=== PATIENT | male | born 1965 | race Caucasian/White ===

== ENCOUNTER 2018-03-11 09:19 | Day surgery (SDC) | payer OTHER, SELFPAY ==
[2018-03-11 09:33] VITALS: BP 123/73; PULSE 83; RESP 16; TEMP 36.4; O2SAT 96
[2018-03-11] MEDS: Lactated Ringers 1,000 ML 30 ML IV (09:58)
--- NOTE | 2018-03-11 11:10 | COLE_ITS ---
Date of service: 03/11/18 Time of Service: 11:09 Colonoscopy Report Date of procedure: 03/11/18 Pre-op diagnosis general: Colorectal cancer screening Post-op diagnosis procedure note: other (Normal colon to the cecum) Procedure: Colonoscopy to the cecum Surgeon: Tavo Mendez Anesthesia proc note operative: MAC (Santa Chau CRNA; ASA 2 Mallampati class II) Estimated blood loss (mL): 0 Pathology: none sent Complications: None Disposition: same day Indications: 52-year-old male presenting for initial colorectal cancer screening by colonoscopy. He is been asymptomatic, and has no family history of colorectal cancer. Colonoscopy procedure is been reviewed with him all his questions answered to his satisfaction consents been obtained to proceed with colonoscopy. Prep: Miralax/Dulcolax (Prep quality excellent) Findings: In examining the colon from cecum to anus, no abnormalities were noted. Procedure Description: The patient was seen in the day surgery waiting area. His identification was confirmed, and procedure check. He was then brought to the procedure room. Monitoring for telemetry, blood pressure, oxygen saturation , and end tidal CO2 monitoring were applied. An appropriate time out was performed to confirm, identification, allergies, medication, procedure, was performed. Sedation was titrated for affect by the PANEL INSTRUMENT REPAIRER; Once adequate sedation was achieved, I performed a inspection of the external perineum, and a digitial rectal examination. No significant external abnormalities were noted. On digital rectal examination, there was no blood, no masses, good rectal tone, and a normal prostate. I advanced the colonoscope from the anus to the cecum under direct visualization. The cecum was identified by the ileal-cecal valve, and the appendiceal orifice. The scope was then withdrawn in circumferential manner from the cecum to the rectum. No abnormalites were noted in the colon. The scope was then withdrawn into the rectum, and retroflexed. No abnormalities were noted of the rectum or anorectal junction. The scope was then withdrawn, terminating the procedure. There were no complications during the procedure, and the patient tolerated the procedure well. He was returned to the day surgery recovery area in good condition. Plan: Will continue with routine screening for colorectal cancer according to current consensus guidelines, which is currently 10 years.
--- NOTE | 2018-03-11 11:48 | W.PM.DSUDISC ---
Discharge Plan Disposition Patient Disposition: HOME Condition: Good Discharge Details Reason For Visit: SCREENING Attending Provider: Tavo Mendez Primary Care Provider: Angel Luis Batista Home Meds and New Rx's Prescriptions: Continue clonazepam [Klonopin] 0.5 MG tablet 0.5 mg PO BID PRNRF: 0 lisinopril 10 MG tablet 10 mg PO DAILY RF: 0 gabapentin 300 MG capsule 600 mg PO BID RF: 0 albuterol sulfate [ProAir HFA] 8.5 GM HFA aerosol inhaler 2 puff Inhalation qid prn RF: 0 fluticasone [Flovent HFA] 12 GM HFA aerosol inhaler 2 puff Inhalation BID Qty: 1 RF: 3 buspirone 15 MG tablet 7.5 mg PO DAILY RF: 0 duloxetine [Cymbalta] 60 MG capsule,delayed release(DR/EC) 60 mg PO DAILY RF: 0 Diclofenac Sodium [Diclo Gel] 1 EACH kit 1 ea Topical BID PRNRF: 0 desoximetasone 60 GM ointment 60 gm Topical PRN PRNRF: 0 Discontinued bisacodyl [Dulcolax (bisacodyl)] 5 mg tablet,delayed release (DR/EC) 10 mg PO BID Qty: 4 RF: 0 polyethylene glycol 3350 [Miralax] 17 gram/dose powder 255 gm PO ONCE Qty: 255 RF: 0 Discharge Instructions Instructions: Colonoscopy (DC) Stand Alone Forms: Colonoscopy Post Instructions, Becky Pickering (DSU) Activity:: Activity as Tolerated Diet:: As Tolerated Discharge Orders Discharge Orders: Discharge Order (Routine); Ordered 03/11/18 Ordered By: Tavo Mendez DS: Diagnosis Discharge Diagnosis (1) Encounter for colorectal cancer screening: Start date: 03/11/18 Start time: 11:49 Status: Acute Asessment and Plan: Colonoscopy performed. Colonoscopy Report Date of procedure: 03/11/18 Pre-op diagnosis general: Colorectal cancer screening Post-op diagnosis procedure note: other (Normal colon to the cecum) Procedure: Colonoscopy to the cecum Surgeon: Tavo Mendez Anesthesia proc note operative: MAC (Santa Chau CRNA; ASA 2 Mallampati class II) Estimated blood loss (mL): 0 Pathology: none sent Complications: None Disposition: same day Indications: 52-year-old male presenting for initial colorectal cancer screening by colonoscopy. He is been asymptomatic, and has no family history of colorectal cancer. Colonoscopy procedure is been reviewed with him all his questions answered to his satisfaction consents been obtained to proceed with colonoscopy. Prep: Miralax/Dulcolax (Prep quality excellent) Findings: In examining the colon from cecum to anus, no abnormalities were noted. Procedure Description: The patient was seen in the day surgery waiting area. His identification was confirmed, and procedure check. He was then brought to the procedure room. Monitoring for telemetry, blood pressure, oxygen saturation, and end tidal CO2 monitoring were applied. An appropriate time out was performed to confirm, identification, allergies, medication, procedure, was performed. Sedation was titrated for affect by the PRODUCT SCIENTIST; Once adequate sedation was achieved, I performed a inspection of the external perineum, and a digitial rectal examination. No significant external abnormalities were noted. On digital rectal examination, there was no blood, no masses, good rectal tone, and a normal prostate. I advanced the colonoscope from the anus to the cecum under direct visualization. The cecum was identified by the ileal-cecal valve, and the appendiceal orifice. The scope was then withdrawn in circumferential manner from the cecum to the rectum. No abnormalites were noted in the colon. The scope was then withdrawn into the rectum, and retroflexed. No abnormalities were noted of the rectum or anorectal junction. The scope was then withdrawn, terminating the procedure. There were no complications during the procedure, and the patient tolerated the procedure well. He was returned to the day surgery recovery area in good condition. Plan: Will continue with routine screening for colorectal cancer according to current consensus guidelines, which is currently 10 years.
[2018-03-11 12:19] VITALS: BP 118/80; PULSE 76; RESP 18; TEMP 36.4; O2SAT 97
== END 2018-03-11 12:35 | disposition home or self-care (01) ==
PROVIDERS: PCP Internal Medicine; Visit Provider Surgery
PROC: 0DJD8ZZ Inspection of Lower Intestinal Tract, Via Natural or Artificial Opening Endoscopic (ICD-10-PCS; CPT 45378; principal; 2018-03-11 10:30)
DX: Z12.11 Encounter for screening for malignant neoplasm of colon (principal); I10 Essential (primary) hypertension; G47.33 Obstructive sleep apnea (adult) (pediatric); F17.290 Nicotine dependence, other tobacco product, uncomplicated
CPT/HCPCS: 45378

== ENCOUNTER 2018-08-03 07:50 | Emergency (ER) | payer OTHER, SELFPAY ==
[2018-08-03 07:57] VITALS: BP 138/107; PULSE 81; RESP 16; TEMP 36.3; O2SAT 97
--- NOTE | 2018-08-03 08:08 | W.ED.GENAD ---
Discharge Plan Disposition Patient Disposition: HOME Condition: Good Discharge Details Chief Complaint: Abd Prob Clinical Impression: Kidney stone Primary Care Provider: [facility] ED Provider: Isaiah Nettles Home Meds and New Rx's Prescriptions: New acetaminophen [Mapap Extra Strength] 500 MG tablet 1,000 mg PO Q6H 5 Days Qty: 60 RF: 0 lidocaine [Lidoderm] 1 PATCH patch 1 patch Topical Q24H Qty: 4 RF: 0 ibuprofen [Motrin IB] 200 MG tablet 600 mg PO Q6H 5 Days Qty: 60 RF: 0 Continued clonazepam [Klonopin] 0.5 MG tablet 0.5 mg PO BID PRNRF: 0 lisinopril 10 MG tablet 10 mg PO DAILY RF: 0 gabapentin 300 MG capsule 600 mg PO BID RF: 0 albuterol sulfate [ProAir HFA] 8.5 GM HFA aerosol inhaler 2 puff Inhalation qid prn RF: 0 Flovent HFA 12 GM HFA aerosol inhaler 2 puff Inhalation BID Qty: 1 RF: 3 buspirone 15 MG tablet 7.5 mg PO DAILY RF: 0 duloxetine [Cymbalta] 60 MG capsule,delayed release(DR/EC) 60 mg PO DAILY RF: 0 Diclofenac Sodium [Diclo Gel] 1 EACH kit 1 ea Topical BID PRNRF: 0 desoximetasone 60 GM ointment 60 gm Topical PRN PRNRF: 0 Discharge Instructions Instructions: Kidney Stones (ED) Additional Instructions: Please take the Tylenol and Motrin as directed. If you notice any worsening of your symptoms, or any new symptoms such as vomiting, diarrhea, fever, chills, shortness of breath, chest pain, numbness, weakness, or fainting , please return immediately to the emergency department for reevaluation. Please follow up with your primary care provider as soon as possible for reassessment and reevaluation. As always, it was a pleasure participating in your medical care today. Referrals: Mari Hill [Primary Care Provider] - Medical Decision Making This is a pleasant 53-year-old male who presents with left-sided flank and left lower abdominal pain since 1 AM, has gotten slightly better since its initial onset at 1 AM, worse with position. Improved with ibuprofen and Pepto-Bismol. He has no history of kidney stones but does have a history of diverticulitis. Physical exam demonstrates reproducible left lower quadrant abdominal pain left CVA tenderness. Genital exam demonstrates signs and symptoms and consistent with testicular torsion. Differential includes diverticulitis, urolithiasis, and less likely appendicitis. We will get a urinalysis to initially direct potential treatment, however I do think with the patient's generalized and reproducible abdominal pain that a CT scan is indicated to rule out severe diverticulitis or abscess. Will treat with Tylenol and a Lidoderm patch to start, then use additional pain medications as needed. 9:[address] scan has returned and per Dr. Brumfield radiologist there is evidence of a single kidney stone the distal ureter near the ureterovesicular junction, but no other acute process. With a urinalysis consistent with urinary tract infection, and laboratory workup otherwise benign aside for a slight increase in his creatinine, his pain well-controlled I feel he can be safely discharged home with close follow-up. He is tolerating p.o. well. We have given the first dose of Flomax here. Since the stone is close to expulsion, will recommend straining, continued fluids, and NSAID use. I have extensively reviewed the treatment plan and discharge instructions with the patient and their family. I have addressed all patient concerns at this time. The patient and family was made aware of what symptoms to monitor for that would warrant a return to the emergency department. Discussed the plan with the patient and family, they demonstrate verbal understanding and agreement with our assessment and plan at this time. HPI General Date/Time Provider Initiated Documentation: 08/03/18 08:07. HPI Narrative: This is a very pleasant 53-year-old male with a past medical history of asthma and anxiety who presents today for evaluation of left-sided flank pain that began at 1 AM. Started in the left flank and radiated down to the left lower abdominal quadrant and left groin, the pain got noticeably better this morning at around 7 AM, after taking ibuprofen for the second time and Pepto-Bismol. Symptoms seem to be worsened with position when he lies back, or moves around. Improved with ibuprofen and Pepto-Bismol. Last ibuprofen dose was at 7 AM. He denies any nausea, vomiting or diarrhea. He denies any dark or tarry stools, hematochezia melena or acholic stool. He denies any dysuria, hematuria or increased urinary frequency. He denies any history of kidney stones. He does have a history of diverticulitis, and states that this feels similar but worse. He denies any previous abdominal surgeries. No other aggravating or modifying factors. He denies any chest pain, shortness of breath, cough, fever, numbness tingling or weakness. He denies any pertinent family history or IV or illicit drug use. Related Data Home Medications Medication Instructions Recorded Confirmed Diclofenac Sodium [Diclo Gel] 1 ea TOPICAL BID PRN kit 01/13/18 03/11/18 Flovent HFA 2 puff INHALATION BID #1 inhaler 01/13/18 08/03/18 albuterol sulfate [ProAir HFA] 2 puff INHALATION qid prn inhaler 01/13/18 08/03/18 buspirone 7.5 mg PO DAILY tab-cap 01/13/18 08/03/18 clonazepam [Klonopin] 0.5 mg PO BID PRN tab-cap 01/13/18 08/03/18 desoximetasone 60 gm TOPICAL PRN PRN script 01/13/18 08/03/18 duloxetine [Cymbalta] 60 mg PO DAILY tab-cap 01/13/18 08/03/18 gabapentin 600 mg PO BID tab-cap 01/13/18 08/03/18 lisinopril 10 mg PO DAILY tab-cap 01/13/18 08/03/18 acetaminophen [Mapap Extra 1,000 mg PO Q6H 5 Days #60 tab 08/03/18 Strength] ibuprofen [Motrin Ib] 600 mg PO Q6H 5 Days #60 tab 08/03/18 lidocaine [Lidoderm] 1 patch TOPICAL Q24H #4 patch 08/03/18 Previous Rx's Medication Instructions Recorded acetaminophen [Mapap Extra 1,000 mg PO Q6H 5 Days #60 tab 08/03/18 Strength] ibuprofen [Motrin Ib] 600 mg PO Q6H 5 Days #60 tab 08/03/18 lidocaine [Lidoderm] 1 patch TOPICAL Q24H #4 patch 08/03/18 Allergies Allergy/AdvReac Type Severity Reaction Status Date / Time No Known Allergies Allergy Verified 08/03/18 08:00 General Stated Complaint: Abd Prob ASHLEY: 3 Review of Systems Review of Systems All systems reviewed & are unremarkable except as noted in HPI and below PFSH Medical History Alopecia totalis Anxiety Asthma, mild intermittent Asymptomatic microscopic hematuria Depression Diarrhea Diverticulitis Environmental allergies Headache Hypertension Lumbar back pain Shingles Sleep apnea Smoker Surgical History H/O colonoscopy (Resolved 03/11/18) Social History Smoking/Tobacco Use Status: Current every day Tobacco Type: cigars Per week: 10 Tobacco: How many years used: 10 Alcohol Intake: current Alcohol Intake frequency: a few times a week Alcohol type: beer Drug use: Never Substance use type: does not use Exam Narrative Exam Narrative: 1.Const: Well-nourished, Well-developed, appearing stated age 2.Eyes: PERRL, no conjunctival injection, and symmetrical lids. 3.ENT: Atraumatic external nose and ears. Moist MM. Neck: Symmetric, trachea midline, No thyromegaly. 4.CVS: +S1/S2, No murmurs or gallops. Peripheral pulses 2+ and equal in all extremities. Brisk capillary refill in all extremities. 5.RESP: Unlabored respiratory effort. Clear to auscultation bilaterally. No wheezes rales or rhonchi 6.GI: Soft, Nondistended, No hepatosplenomegaly. No guarding or rebound. Mild right lower quadrant abdominal pain, mild to moderate left lower quadrant pain. Reproducible left CVA tenderness. Negative obturator and psoas sign. Negative Selby sign. Testicular exam demonstrated normal male genitalia, nontender testicles bilaterally, normal cremasteric reflex bilaterally. 7.MSK: Normocephalic/Atraumatic, Extremities w/o deformity or ttp No cyanosis or clubbing, Normal movement of all extremities 8.Skin: Warm, Dry. No rashes or lesions. 9.Neuro: health service coordinator II-XII grossly intact. Sensation grossly intact, no focal neurologic deficits. 10.Psych: (AAO) x3. Appropriate mood and affect Course Vital Signs Temperature 36.3 C L 08/03/18 07:57 Pulse 81 08/03/18 07:57 Respiratory Rate 16 08/03/18 07:57 Blood Pressure 138/107 H 08/03/18 07:57 Pulse Oximetry 97 08/03/18 07:57 Temperature 36.3 C L 08/03/18 07:57 Temperature Source Skin 08/03/18 07:57 Pulse 81 08/03/18 07:57 Respiratory Rate 16 08/03/18 07:57 Respiratory Effort Non-Labored 08/03/18 07:57 Blood Pressure 138/107 H 08/03/18 07:57 Blood Pressure Position Sitting 08/03/18 07:57 Pulse Oximetry 97 08/03/18 07:57 Oxygen Delivery Method Room Air 08/03/18 07:57 Oxygen Flow Rate 0 08/03/18 07:57 Pain Level 4 08/03/18 07:57
[2018-08-03 08:09] LABS: Bilirubin Negative (Negative); Blood Moderate (Negative); Clarity Clear; Glucose Negative (Negative); Ketones Negative (Negative); Leukocyte Esterase Negative (Negative); Nitrite Negative (Negative); Specific Gravity 1.025 (1.005-1.025); Urobilinogen 0.2 EU/dL (Up TO 0.2)
--- NOTE | 2018-08-03 08:13 | DI.CT_ITS ---
SYMPTOM/DIAGNOSIS: LT FLANK PAIN, ? DIVERTICULITIS VS [place] RENAL COLIC CT: CT scan of the abdomen and pelvis was performed according to the renal colic protocol. Lack of IV contrast does limit evaluation of the abdominal and pelvic organs. The lung bases are clear. The unenhanced visualized portions of the liver, spleen, pancreas, gallbladder and adrenal glands are unremarkable. There is a 4 mm. stone at the left ureterovesicular junction causing mild hydronephrosis. No other renal stones are present. There are again cysts in the right kidney which appear stable compared to the examination from 09/23/17. The urinary bladder is intact. The reproductive organs are unremarkable. There is diverticulosis of the colon but no evidence of acute diverticulitis. There is a normal appendix. The remainder of the bowel is unremarkable. The abdominal aorta is of normal caliber with mild atherosclerosis. No significant abdominal or pelvic adenopathy, ascites or pneumoperitoneum is seen. 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 IMPRESSION: 4 mm. left UVJ calculus causing mild hydronephrosis. The findings were discussed with the ER on the date of the examination.
[2018-08-03 08:23] LABS: WBC 0-2 HPF (0-5)
[2018-08-03] MEDS: Acetaminophen 500 MG TAB 1000 MG PO (08:23)
[2018-08-03] MEDS: Lidocaine 5% Patch 1 PATCH TP (08:23)
[2018-08-03 08:24] LABS: Bacteria Few HPF (Negative); C & S Indicated? No; Casts Negative LPF (Negative); Crystals Negative HPF (Negative); Epithelial Cells Few HPF (Negative); Mucus Moderate (Negative)
[2018-08-03 08:27] LABS: Abs Immature Grans 0.03 k/cumm (0.0-0.09); Absolute Lymphocyte Count 0.93 k/cumm (1.2-3.4); Absolute Monocyte Count 0.92 k/cumm (0.11-0.7); Absolute Neutrophil Count 7.84 k/cumm (1.2-6.7); HCT 45.9 % (40.0-50.0); HGB 16.3 g/dL (13.5-17.5); Immature Grans % 0.3; Lymphocytes % 9.6; Mean Corp. HGB Concentration 35.5 g/dL (32.0-36.0); Mean Corpuscular Hemoglobin 32.8 pg (27.0-33.0); Mean Corpuscular Volume 92.4 fL (80-95); Mean Platelet Volume 9.1 fL (8.0-11.0); Monocytes % 9.5; Neutrophils % 80.6; Platelet Count 195 x1000/uL (130-400); RBC 4.97 m/cumm (4.50-6.00); RBC Distribution Width 13.1 % (11.8-14.1); White Blood Cell Count 9.72 k/cumm (4.4-10.8)
[2018-08-03 08:36] LABS: ALT 31 U/L (12-78); AST 23 U/L (15-37); Albumin 4.3 g/dL (3.4-5.0); Alkaline Phosphatase 75 U/L (46-116); Anion Gap 8.9 mmol/L (3-11); BUN 27 mg/dL (7-18); Bilirubin, Total 0.6 mg/dL (0.2-1.0); CO2 26.1 mmol/L (21.0-32.0); CREATININE 1.69 mg/dL (0.70-1.30); Calcium 9.5 mg/dL (8.5-10.1); Chloride 104 mmol/L (98-107); Glucose 114 mg/dL (70-100); Potassium 4.5 mmol/L (3.5-5.1); Sodium 139 mmol/L (136-145); Total Protein 7.7 g/dL (6.4-8.2)
[2018-08-03] MEDS: Tamsulosin 0.4 MG CAPCR PO (09:10)
[2018-08-03 09:19] VITALS: BP 142/96; PULSE 65; RESP 16; TEMP 36.3; O2SAT 100
== END 2018-08-03 09:22 | disposition home or self-care (01) ==
PROVIDERS: Emergency Provider Student in an Organized Health Care Education/Training Program; PCP Nurse Practitioner Family
DX: R10.32 Left lower quadrant pain (principal); N20.1 Calculus of ureter; I10 Essential (primary) hypertension
CPT/HCPCS: 36415; 80053; 99284; 74176; 81003; 81015; 85025; 99285

== ENCOUNTER 2018-09-05 16:40 | Outpatient (REF) | payer OTHER, SELFPAY ==
[2018-09-05 21:21] LABS: ALT 40 U/L (12-78); AST 24 U/L (15-37); Anion Gap 9.4 mmol/L (3-11); BUN 18 mg/dL (7-18); CO2 25.6 mmol/L (21.0-32.0); CREATININE 1.32 mg/dL (0.70-1.30); Calcium 9.1 mg/dL (8.5-10.1); Chloride 103 mmol/L (98-107); Cholesterol 210 mg/dL (50-200); Estimated GFR 57.18 (mL/min/1.73m2); Glucose 133 mg/dL (70-100); HDL Cholesterol 46 mg/dL (40-60); LDL CHOLESTEROL 131 mg/dL (<100); Potassium 3.7 mmol/L (3.5-5.1); Sodium 138 mmol/L (136-145); Triglyceride 256 mg/dL (30-150)
== END 2018-09-05 17:00 ==
LOC: NCHCN 16:40
PROVIDERS: PCP Nurse Practitioner Family; Visit Provider Nurse Practitioner Family
DX: I10 Essential (primary) hypertension (principal); F41.8 Other specified anxiety disorders; G47.39 Other sleep apnea; J45.20 Mild intermittent asthma, uncomplicated; F17.210 Nicotine dependence, cigarettes, uncomplicated; Z87.442 Personal history of urinary calculi
CPT/HCPCS: 80048; 80061; 83721; 84450; 84460

== ENCOUNTER 2019-02-20 16:47 | Outpatient (REF) | payer OTHER, SELFPAY ==
[2019-02-20 20:59] LABS: Hemoglobin A1C 5.5 % (4.5-6.2)
[2019-02-20 21:10] LABS: TSH (W/Ref FT4) 1.49 uIU/mL (0.36-3.74)
== END 2019-02-20 17:07 ==
LOC: NCHCN 16:47
PROVIDERS: PCP Nurse Practitioner Family; Visit Provider Nurse Practitioner Family
DX: R41.3 Other amnesia (principal); R73.01 Impaired fasting glucose; I10 Essential (primary) hypertension; R51 Headache; F41.8 Other specified anxiety disorders; Z87.891 Personal history of nicotine dependence
CPT/HCPCS: 83036; 84443

== ENCOUNTER 2019-03-02 00:19 | Outpatient (CLI) | payer OTHER, SELFPAY ==
--- NOTE | 2019-03-02 09:10 | DI.MRI_ITS ---
EXAM: MR BRAIN WO CLINICAL HISTORY: MEMORY LOSS, R41.3, HEADACHE, R51 TECHNIQUE: Multiplanar multisequence MRI of the brain was performed. COMPARISON: No exams were available for comparison FINDINGS: The ventricular system is normal in appearance. No signal abnormality identified in the brain. The orbital and temporal bone structures appears intact as does the pituitary. Diffusion weighted imaging shows no evidence of infarction. Susceptibility weighted imaging shows no evidence of intracranial hemorrhage. There is normal flow void in the [place] vasculature. IMPRESSION: Normal brain MRI
== END 2019-03-02 00:39 ==
PROVIDERS: PCP Nurse Practitioner Family; Visit Provider Nurse Practitioner Family
DX: R51 Headache (principal); R41.3 Other amnesia
CPT/HCPCS: 70551

== ENCOUNTER 2019-03-07 14:26 | Outpatient (REF) | payer OTHER, SELFPAY ==
[2019-03-09 11:48] LABS: Lyme Ab w Rflx to Lyme Confirm Negative
[2019-03-10 19:45] LABS: Anaplasma phagocytophilum Negative (Negative); B. miyamotoi PCR Negative (Negative); Babesia divergens/MO-1 Negative (Negative); Babesia duncani Negative (Negative); Babesia microti Negative (Negative); Ehrlichia chaffeensis Negative (Negative); Ehrlichia ewingii/canis Negative (Negative); Ehrlichia muris eauclairensis Negative (Negative)
== END 2019-03-07 14:46 ==
LOC: NCHCN 14:26
PROVIDERS: PCP Nurse Practitioner Family; Visit Provider Nurse Practitioner Family
DX: R41.3 Other amnesia (principal)
CPT/HCPCS: 87798; 86618

== ENCOUNTER 2020-02-15 07:01 | Emergency (ER) | payer OTHER, SELFPAY ==
[2020-02-15 07:05] VITALS: BP 143/99; PULSE 85; RESP 18; TEMP 36.4; O2SAT 98
--- NOTE | 2020-02-15 07:09 | ED.GENADUL_ITS ---
Discharge Plan Disposition Patient Disposition: HOME Condition: Good Discharge Details Clinical Impression: Neck pain on right side, Radicular pain of right upper extremity Primary Care Provider: Mari Hill ED Provider: Tanner Naik Meds and New Rx's Prescriptions: New cyclobenzaprine 10 mg tablet 10 mg PO TID PRN (Reason: muscle spasm) Qty: 10 RF: 0 hydrocodone-acetaminophen 5-300 mg tablet 1 tab PO Q8H PRNQty: 10 RF: 0 lidocaine 5 % adhesive patch,medicated 1 patch topical DAILY Qty: 15 RF: 0 Continued budesonide-formoterol [Symbicort] 80-4.5 mcg/actuation HFA aerosol inhaler 1 puff IH .QD RF: 0 clonazepam [Klonopin] 0.5 MG tablet 0.5 mg PO BID PRNRF: 0 lisinopril 10 MG tablet 10 mg PO DAILY RF: 0 albuterol sulfate [ProAir HFA] 8.5 GM HFA aerosol inhaler 2 puff Inhalation qid prn RF: 0 duloxetine [Cymbalta] 60 MG capsule,delayed release(DR/EC) 60 mg PO DAILY RF: 0 desoximetasone 60 GM ointment 60 gm Topical PRN PRNRF: 0 buspirone 15 mg tablet 15 mg PO BID RF: 0 loratadine [Claritin] 10 mg tablet 10 mg PO DAILY PRNRF: 0 propranolol 40 mg tablet 40 mg PO BID RF: 0 Discharge Instructions Instructions: Cervical Radiculopathy (ED), Opioid Safety (ED) Additional Instructions: Please take ibuprofen 600 mg 3 times a day alternating with acetaminophen 650 mg 3 times a day. This will equate to something every 4 hours. Use the cyclobenzaprine for muscle spasm. Use the hydrocodone/acetaminophen for breakthrough/severe pain. No driving, alcohol, machinery operation while using cyclobenzaprine or hydrocodone/acetaminophen. Applied lidocaine patches during the day and remove at night. Heat, gentle massage and stretching will likely help. Contact primary care today for follow-up. Return to ED for worsening pain, weakness in the arm, loss of sensation in the arm, other concerns. Referrals: Mari Hill [Primary Care Provider] - Medical Decision Making Patient presenting with right-sided neck pain and cervical radiculopathy with pain down the back of his right arm. He is neurologically intact. Pulses are intact. Seems to be related to muscle spasm although the radicular pain could imply disc problem. Will have patient continue ibuprofen alternating with acetaminophen. We will try Lidoderm patch. We will also try cyclobenzaprine for spasm. Also prescribed hydrocodone/acetaminophen if needed for breakthrough/severe pain over the weekend until he can see primary care. We discussed opiate use and he is given the state information sheet as well as discharge papers. He is asked to call primary care today to make follow-up appointment. Return to ED for worsening pain, loss of sensation, weakness, other concerns. HPI General Mode of arrival: ambulatory . Date/Time Provider Initiated Documentation: 02/15/20 07:08 . Limitations to Documentation: no limitations . Information obtained by: patient and RN notes reviewed . HPI Narrative: Patient presents to ED with right-sided neck pain and radiation of pain down his right arm. Patient reports that just about a week ago he was getting out of the shower and drying off. [place] a pull in his right upper back and neck. Since then he has had progressive pain. For the last 3 days he has had the pain radiating down the back of his arm to his hand with some tingling in his fingers. He has had no loss of sensation. He has had no weakness. He has significantly decreased range of motion due to pain and sits on the stretcher with his head turned towards the left. He has been using ibuprofen. He saw chiropractor yesterday. He has been unable to sleep for the last couple of nights because of pain. She presents here this morning for evaluation. Related Data Home Medications Medication Instructions Recorded Confirmed albuterol sulfate [ProAir HFA] 2 puff INHALATION qid prn inhaler 01/13/18 02/15/20 clonazepam [Klonopin] 0.5 mg PO BID PRN tab-cap 01/13/18 02/15/20 desoximetasone 60 gm TOPICAL PRN PRN script 01/13/18 02/15/20 duloxetine [Cymbalta] 60 mg PO DAILY tab-cap 01/13/18 02/15/20 lisinopril 10 mg PO DAILY tab-cap 01/13/18 02/15/20 buspirone 15 mg tablet 15 mg PO BID tab-cap 02/22/19 02/15/20 loratadine 10 mg tablet 10 mg PO DAILY PRN 02/22/19 02/15/20 propranolol 40 mg tablet 40 mg PO BID 02/22/19 02/15/20 budesonide-formoterol HFA 80 1 puff IH .QD gm 06/06/19 02/15/20 mcg-4.5 mcg/actuation aerosol inhaler cyclobenzaprine 10 mg PO TID PRN #10 tab 02/15/20 hydrocodone-acetaminophen 1 tab PO Q8H PRN #10 tab 02/15/20 lidocaine 1 patch TOPICAL DAILY #15 ea 02/15/20 Previous Rx's Medication Instructions Recorded cyclobenzaprine 10 mg PO TID PRN #10 tab 02/15/20 hydrocodone-acetaminophen 1 tab PO Q8H PRN #10 tab 02/15/20 lidocaine 1 patch TOPICAL DAILY #15 ea 02/15/20 Allergies Allergy/AdvReac Type Severity Reaction Status Date / Time No Known Allergies Allergy Verified 02/15/20 07:09 General Stated Complaint: GenMedical ASHLEY: 3 Review of Systems Narrative: As documented in HPI otherwise negative as below. Const: no fever, chills, weakness Resp: no cough, SOB, pleuritic pain CV: no CP, diaphoresis, edema, syncope GI: no abdominal pain, nausea, vomiting, diarrhea Neuro: no headache, focal weakness, confusion PFSH Medical History (Updated 02/15/20 @ 07:39 by Tanner Naik MD) Alopecia totalis Anxiety Asthma, mild intermittent Asymptomatic microscopic hematuria Depression Diarrhea Diverticulitis Environmental allergies Headache, chronic migraine without aura Hypertension Lumbar back pain Shingles Sleep apnea Surgical History H/O colonoscopy (03/11/18) Dr Mendez, negative, repeat in 10 years Family History Other Cancer Social History Smoking/Tobacco Use Status: Current every day Tobacco: How many years used: 10 Alcohol Intake: current Alcohol Intake frequency: a few times a week Alcohol type: beer Drug use: Never Substance use type: does not use Seatbelt use: always Do you feel safe at home: Yes Do you feel safe in your relationship?: Yes Exam Narrative Exam Narrative: Vitals: Afebrile. Elevated blood pressure but otherwise normal vitals and normal room air pulse ox. Const: WDWN male in NAD. HEENT: NC/AT. Normal facial exam. Neck: Trachea midline. Head held to the left and flex. Tenderness and tightness in the right trapezial muscle. No midline cervical tenderness. Lungs: Normal respiratory effort. Cor: RRR. Good radial pulses. Neuro: A+O x 3. Normal speech, mentation, gait. Cranial nerves II - XII grossly intact. No gross motor or sensory deficit. Normal sensation and normal strength in right upper extremity. Ext: Decreased range of motion at the right shoulder due to pain in the upper back and neck. Right upper extremity otherwise unremarkable and neurovascularly intact. Skin: Warm and dry without rash. Course Vital Signs Vital signs: Vital Signs Temperature 97.5 F L 02/15/20 07:05 Pulse 85 02/15/20 07:05 Respiratory Rate 18 02/15/20 07:05 Blood Pressure 143/99 H 02/15/20 07:05 Pulse Oximetry 98 02/15/20 07:05 Temperature 97.5 F L 02/15/20 07:05 Temperature Source Temporal Artery Scan 02/15/20 07:05 Pulse 85 02/15/20 07:05 Respiratory Rate 18 02/15/20 07:05 Blood Pressure 143/99 H 02/15/20 07:05 Blood Pressure Position Sitting 02/15/20 07:05 Pulse Oximetry 98 02/15/20 07:05 Oxygen Delivery Method Room Air 02/15/20 07:05 Oxygen Flow Rate 0 02/15/20 07:05 Pain Level 10 02/15/20 07:05
[2020-02-15 07:14] VITALS: RESP 18
[2020-02-15] MEDS: Lidocaine 5% Patch 1 PATCH TP (07:39)
[2020-02-15] MEDS: Cyclobenzaprine 10 MG TAB, 3 TABS/BTL PO (07:39)
== END 2020-02-15 15:00 | disposition home or self-care (01) ==
LOC: ER 07:43
PROVIDERS: Emergency Provider Emergency Medicine; PCP Nurse Practitioner Family
DX: M54.12 Radiculopathy, cervical region (principal); M79.601 Pain in right arm; R20.2 Paresthesia of skin; I10 Essential (primary) hypertension
CPT/HCPCS: 99283

== ENCOUNTER 2020-02-16 08:29 | Emergency (ER) | payer OTHER, SELFPAY ==
--- NOTE | 2020-02-16 08:30 | DI.CT_ITS ---
EXAM: CT THORACIC SPINE WO CLINICAL HISTORY: Neck pain with radiculopathy. TECHNIQUE: Imaging Protocol: Axial computed tomography images with coronal and sagittal reformatted images were created and reviewed. CONTRAST MATERIAL: Noncontrast COMPARISON: No exams were available for comparison FINDINGS: Bones: No fractures or dislocations are seen. The alignment of the spine is normal including the cerv icothoracic junction. Soft tissues: The soft tissues of the chest are unremarkable. No large disk herniations are identifie d. IMPRESSION: Normal CT of the thoracic spine. RADIATION DOSE DELIVERED: 881.68mGy.cm Total DLP DATA REPOSITORY: All CT scans at this facility are submitted to the National Radiology Data Registry (NRDR) Dose Index Registry (DIR) with the [employer] (ACR). RADIATION OPTIMIZATION: All CT scans at this facility use at least one of these dose optimization te chniques: automated exposure control; mA and/or kV adjustment per patient size (includes targeted exa ms where dose is matched to clinical indication); or iterative reconstruction.
[2020-02-16 08:34] VITALS: BP 145/116; PULSE 80; RESP 16; TEMP 36.8; O2SAT 99
--- NOTE | 2020-02-16 08:44 | W.ED.GENAD ---
Discharge Plan Disposition Patient Disposition: HOME Condition: Stable Discharge Details Clinical Impression: C6 radiculopathy Primary Care Provider: Mari Hill ED Provider: Alison Torres Home Meds and New Rx's Prescriptions: New diazepam [Valium] 2 mg tablet 2 mg PO BID PRN (Reason: muscle spasm) Qty: 4 RF: 0 Continued budesonide-formoterol [Symbicort] 80-4.5 mcg/actuation HFA aerosol inhaler 1 puff IH .QD RF: 0 clonazepam [Klonopin] 0.5 MG tablet 0.5 mg PO BID PRNRF: 0 lisinopril 10 MG tablet 10 mg PO DAILY RF: 0 albuterol sulfate [ProAir HFA] 8.5 GM HFA aerosol inhaler 2 puff Inhalation qid prn RF: 0 duloxetine [Cymbalta] 60 MG capsule,delayed release(DR/EC) 60 mg PO DAILY RF: 0 desoximetasone 60 GM ointment 60 gm Topical PRN PRNRF: 0 buspirone 15 mg tablet 15 mg PO BID RF: 0 loratadine [Claritin] 10 mg tablet 10 mg PO DAILY PRNRF: 0 propranolol 40 mg tablet 40 mg PO BID RF: 0 cyclobenzaprine 10 mg tablet 10 mg PO TID PRN (Reason: muscle spasm) Qty: 10 RF: 0 hydrocodone-acetaminophen 5-300 mg tablet 1 tab PO Q8H PRNQty: 10 RF: 0 lidocaine 5 % adhesive patch,medicated 1 patch topical DAILY Qty: 15 RF: 0 Discharge Instructions Instructions: Cervical Radiculopathy (ED) Additional Instructions: Follow up with primary care provider in 3-5 days. Return to ED sooner if any worsening or concerns. Increase oral fluids. Please take Tylenol or Ibuprofen with food every 4-6 hours as needed for pain and swelling. Take medications as prescribed. Alternate ice and heat. The CT today shows some disc height loss at C6 and C7 with some foraminal canal narrowing which could indicate a pinched nerve in your neck. This could be the cause for the symptoms you are having. Please follow-up with global mobility specialist regarding your symptoms within the next 3 to 5 days. We will put you on a follow-up list for care management to assist you with getting an appointment. Stand Alone Forms: Work Release Referrals: Mari Hill [Primary Care Provider] - Raoul Cortez MD [ [facility] STAFF PHYSICIAN] - Discharge Data Discharge Date/Time-TO BE ENTERED AT DEPARTURE: 02/16/20 11:09 Medical Decision Making 54-year-old male presents to the ER for the second day in a row with posterior neck pain. He reports sharp shooting pain which extends down his right arm into his first 3 fingers. He reports paresthesias to his thumb index and middle finger on his right hand. Unknown injury. He was given Vicodin, and Flexeril which she reports is not helping. Denies any other complaints at this time. EXAM: CT THORACIC SPINE WO CLINICAL HISTORY: Neck pain with radiculopathy. TECHNIQUE: Imaging Protocol: Axial computed tomography images with coronal and sagittal reformatted images were created and reviewed. CONTRAST MATERIAL: Noncontrast COMPARISON: No exams were available for comparison FINDINGS: Bones: No fractures or dislocations are seen. The alignment of the spine is normal including the cervicothoracic junction. Soft tissues: The soft tissues of the chest are unremarkable. No large disk herniations are identified. IMPRESSION: Normal CT of the thoracic spine. EXAM: CT CERVICAL SPINE WO CLINICAL HISTORY: Neck pain with radiculopathy. TECHNIQUE: Imaging Protocol: Axial computed tomography images with coronal and sagittal reformatted images were created and reviewed CONTRAST MATERIAL: Noncontrast COMPARISON: No exams were available for comparison FINDINGS: Bones: No fracture or dislocations are seen. The alignment of the cervical spine is normal including the cervicovertebral junction and cervicothoracic junction. C2-3: Normal. C3-4: Normal. C4-5: Normal. C5-6: Minimal disc osteophytes.. C6-7: Bwrm-pe-aiygfemt loss of disc height and small endplate osteophytes which are eccentric toward the left, causing iulw-oj-kvfhtmmf neural foraminal narrowing. There is mild right neural foraminal narrowing. C7-T1: Normal. There are mild facet degenerative changes. Soft Tissues: The soft tissues of the neck are unremarkable. No large disk herniations are identified. IMPRESSION: Cafa-ey-ilkhtith degenerative disc changes at C6-7 cause bilateral neural foraminal narrowing. No disc herniation is seen. Discussed results with patient who verbalized understanding. Recommended to follow-up with orthopedics as previously instructed. Was given Valium 2 mg 24 tablet as needed for muscle spasm. Patient verbalized understanding. He remained hemodynamically stable throughout stay and his pain was relieved prior to being discharged home. HPI General Mode of arrival: ambulatory. Date/Time Provider Initiated Documentation: 02/16/20 08:31. Limitations to Documentation: no limitations. Information obtained by: patient. HPI Narrative: 54-year-old male presents to the ER for the second day in a row with posterior neck pain. He reports sharp shooting pain which extends down his right arm into his first 3 fingers. He reports paresthesias to his thumb index and middle finger on his right hand. Unknown injury. He was given Vicodin, and Flexeril which she reports is not helping. Denies any other complaints at this time. Related Data Home Medications Medication Instructions Recorded Confirmed albuterol sulfate [ProAir HFA] 2 puff INHALATION qid prn inhaler 01/13/18 02/16/20 clonazepam [Klonopin] 0.5 mg PO BID PRN tab-cap 01/13/18 02/16/20 desoximetasone 60 gm TOPICAL PRN PRN script 01/13/18 02/16/20 duloxetine [Cymbalta] 60 mg PO DAILY tab-cap 01/13/18 02/16/20 lisinopril 10 mg PO DAILY tab-cap 01/13/18 02/16/20 buspirone 15 mg tablet 15 mg PO BID tab-cap 02/22/19 02/16/20 loratadine 10 mg tablet 10 mg PO DAILY PRN 02/22/19 02/16/20 propranolol 40 mg tablet 40 mg PO BID 02/22/19 02/16/20 budesonide-formoterol HFA 80 1 puff IH .QD gm 06/06/19 02/16/20 mcg-4.5 mcg/actuation aerosol inhaler cyclobenzaprine 10 mg PO TID PRN #10 tab 02/15/20 02/16/20 hydrocodone-acetaminophen 1 tab PO Q8H PRN #10 tab 02/15/20 02/16/20 lidocaine 1 patch TOPICAL DAILY #15 ea 02/15/20 02/16/20 diazepam [Valium] 2 mg PO BID PRN #4 tab 02/16/20 Previous Rx's Medication Instructions Recorded cyclobenzaprine 10 mg PO TID PRN #10 tab 02/15/20 hydrocodone-acetaminophen 1 tab PO Q8H PRN #10 tab 02/15/20 lidocaine 1 patch TOPICAL DAILY #15 ea 02/15/20 diazepam [Valium] 2 mg PO BID PRN #4 tab 02/16/20 Allergies Allergy/AdvReac Type Severity Reaction Status Date / Time No Known Allergies Allergy Verified 02/16/20 08:41 General Stated Complaint: Nk/Back Pain ASHLEY: 4 Review of Systems Narrative: Constitutional: Negative for weight loss, alert and oriented, well groomed, normal body habitus, appears comfortable. HEENT: Denies trauma, headaches, blurry vision, nasal discharge, sore throat, trouble swallowing. Chest: Denies chest pain, palpitations, irregular rhythm, hypertension. Respiratory: Denies Shortness of breath, cough, hemoptysis. GI: Denies abdominal pain, nausea, vomiting, diarrhea, constipation. : Denies dysuria, hematuria, flank pain, rectal bleeding. Neuro: Denies dizziness, blurry vision, weakness, syncope, headache or facial numbness. Reports sharp shooting pain down the right arm into his first 3 fingers. Hematologic: Denies easy bruising, intolerance to heat or cold, hair loss. [facility] Medical History (Updated 02/16/20 @ 10:55 by Alison Torres) Alopecia totalis Anxiety Asthma, mild intermittent Asymptomatic microscopic hematuria Depression Diarrhea Diverticulitis Environmental allergies Headache, chronic migraine without aura Hypertension Lumbar back pain Shingles Sleep apnea Surgical History H/O colonoscopy (03/11/18) Dr Mendez, negative, repeat in 10 years Family History Other Cancer Social History Smoking/Tobacco Use Status: Current every day Tobacco: How many years used: 10 Alcohol Intake: current Alcohol Intake frequency: a few times a week Alcohol type: beer Drug use: Never Substance use type: does not use Seatbelt use: always Do you feel safe at home: Yes Do you feel safe in your relationship?: Yes Exam Narrative Exam Narrative: Constitutional: Alert and oriented x3. Appears stated age. Normal body habitus. Head: Normocephalic, no trauma. Eyes: Pupils PERRLA, Red reflex noted, EOM's intact. Eyelids symmetrical without lesions, discharge, or swelling. ENT: Bilateral TM's WNL, External ear normal to inspection, no mastoid TTP, swelling, or erythema, Nasal turbinates WNL, no nasal discharge. Normal dentition, Posterior pharynx WNL, no exudate. Chest: RRR, Normal S1, S2, distal pulses intact. Resp: Lungs clear to auscultation bilaterally, no wheezes, rales, or rhonchi. Musculoskeletal: Normal gait, patient does have some midline C-spine tenderness, he is holding his neck to left angle. Skin: No suspicious rashes or lesions. Capillary refill less than 2 sec. Neurologic: Cranial nerves II-XII intact. Alert and oriented x 3. DTR's intact. Hematologic/Lymphatic: No ecchymosis, no lymphadenopathy. Course Vital Signs Vital signs: Vital Signs Temperature 36.8 C 02/16/20 08:34 Pulse 80 02/16/20 08:34 Respiratory Rate 16 02/16/20 08:34 Blood Pressure 145/116 H 02/16/20 08:34 Pulse Oximetry 99 02/16/20 08:34 Temperature 36.8 C 02/16/20 08:34 Temperature Source Skin 02/16/20 08:34 Pulse 80 02/16/20 08:34 Respiratory Rate 16 02/16/20 08:34 Respiratory Effort Non-Labored 02/16/20 08:40 Blood Pressure 145/116 H 02/16/20 08:34 Blood Pressure Position Sitting 02/16/20 08:34 Pulse Oximetry 99 02/16/20 08:34 Oxygen Delivery Method Room Air 02/16/20 08:34 Oxygen Flow Rate 0 02/16/20 08:34 Pain Level 10 02/16/20 08:40
[2020-02-16] MEDS: diazePAM 5 MG TAB PO (08:50)
--- NOTE | 2020-02-16 09:12 | DI.CT_ITS ---
EXAM: CT CERVICAL SPINE WO CLINICAL HISTORY: Neck pain with radiculopathy. TECHNIQUE: Imaging Protocol: Axial computed tomography images with coronal and sagittal reformatted images were created and reviewed CONTRAST MATERIAL: Noncontrast COMPARISON: No exams were available for comparison FINDINGS: Bones: No fracture or dislocations are seen. The alignment of the cervical spine is normal including the cervicovertebral junction and cervicothoracic junction. C2-3: Normal. C3-4: Normal. C4-5: Normal. C5-6: Minimal disc osteophytes.. C6-7: Olwf-dy-xljwqwuv loss of disc height and small endplate osteophytes which are eccentric toward the left, causing imhk-rt-uvenaovp neural foraminal narrowing. There is mild right neural foraminal narrowing. C7-T1: Normal. There are mild facet degenerative changes. Soft Tissues: The soft tissues of the neck are unremarkable. No large disk herniations are identified . IMPRESSION: Acbz-ix-sdqtekag degenerative disc changes at C6-7 cause bilateral neural foraminal narrowing. No di sc herniation is seen. RADIATION DOSE DELIVERED: 512.13mGy.cm Total DLP DATA REPOSITORY: All CT scans at this facility are submitted to the National Radiology Data Registry (NRDR) Dose Index Registry (DIR) with the [place] [employer] (ACR). RADIATION OPTIMIZATION: All CT scans at this facility use at least one of these dose optimization te chniques: automated exposure control; mA and/or kV adjustment per patient size (includes targeted exa ms where dose is matched to clinical indication); or iterative reconstruction.
[2020-02-16 10:54] VITALS: BP 131/89; PULSE 66; RESP 20; TEMP 36.7; O2SAT 99
[2020-02-16 11:06] VITALS: BP 133/70; PULSE 68; RESP 20; TEMP 36.7; O2SAT 99
== END 2020-02-16 11:09 | disposition home or self-care (01) ==
PROVIDERS: Emergency Provider Registered Nurse Emergency; PCP Nurse Practitioner Family
DX: M54.13 Radiculopathy, cervicothoracic region (principal); R20.2 Paresthesia of skin; I10 Essential (primary) hypertension
CPT/HCPCS: 99284; 72125; 72128

== ENCOUNTER 2020-04-03 00:33 | Outpatient (CLI) | payer OTHER, SELFPAY ==
--- NOTE | 2020-05-16 08:21 | CER_ITS ---
Date of service: 05/16/20 Time of Service: 08:21 Cardiac Event Recorder Referring Provider:: Corinna Gold Indications:: Syncope Cardiac Event Note: This is a 30-day event monitor, reportedly ordered for syncope Predominant rhythm was sinus. Average heart rate was 86. Minimum was 57 and maximum 109 There were no significant atrial or ventricular dysrhythmias There was no atrial fibrillation, no pauses greater than 3 seconds, no high- grade AV block No patient symptoms were reported
== END 2020-04-03 00:53 ==
PROVIDERS: PCP Nurse Practitioner Family; Visit Provider Family Medicine
DX: R40.20 Unspecified coma (principal)
CPT/HCPCS: 93270

== ENCOUNTER 2020-04-03 01:02 | Outpatient (CLI) | payer OTHER, SELFPAY ==
--- NOTE | 2020-04-03 14:30 | DI.MRI_ITS ---
EXAM: MR CERVICAL SPINE WO CLINICAL HISTORY: ACUTE NECK PAIN,M54.2 TECHNIQUE: Multiplanar multisequence MRI of the cervical spine was performed without intravenous con trast. COMPARISON: CT CT CERVICAL SPINE WO from 02/16/2020 FINDINGS: BONES: Vertebral body heights are maintained. Intervertebral disc spaces are normal. Alignment is nor mal. Bone marrow signal intensity is within normal limits. CERVICAL CORD: Craniovertebral junction is unremarkable. The cervical cord is normal size and signal intensity. SOFT TISSUES: Unremarkable. C2-3: No disc herniation or bulge is identified. No significant central spinal canal or neural forami nal stenosis. C3-4: No disc herniation or bulge is identified. No significant central spinal canal or neural forami nal stenosis C4-5: No disc herniation or bulge is identified. No significant central spinal canal or neural forami nal stenosis C5-6: Mild prominence of the osteophyte disc complex. No significant central spinal canal stenosis. Mild narrowing of the right neural foramen. No significant left neural foraminal stenosis. C6-7: Prominence of the osteophyte disc complex. No significant central spinal canal stenosis. Mild right and phyb-sq-kxegbplj left neural foraminal stenosis. C7-T1: No disc herniation or bulge is identified. No significant central spinal canal or neural vanessa inal stenosis IMPRESSION: C5-6 and C6-C7 degenerative changes resulting in mild neural foraminal narrowing on the right at C5-6 and bilateral neural foraminal narrowing at C6-C7. DATA REPOSITORY:
== END 2020-04-03 01:22 ==
PROVIDERS: PCP Nurse Practitioner Family; Visit Provider Family Medicine
DX: M47.812 Spondylosis without myelopathy or radiculopathy, cervical region (principal); M48.02 Spinal stenosis, cervical region
CPT/HCPCS: 72141

== ENCOUNTER 2020-05-31 04:15 | Outpatient (CLI) | payer OTHER, SELFPAY ==
[2020-06-01 16:48] LABS: COVID-19 RT-PCR Result NEGATIVE (Negative)
== END 2020-05-31 04:35 ==
PROVIDERS: PCP Nurse Practitioner Family; Visit Provider Family Medicine
DX: Z20.828 Contact with and (suspected) exposure to other viral communicable diseases (principal); Z01.811 Encounter for preprocedural respiratory examination
CPT/HCPCS: U0003

== ENCOUNTER 2020-06-03 04:13 | Outpatient (CLI) | payer OTHER, SELFPAY ==
[2020-06-03] MEDS: Albuterol HFA 18 GM 200 PUFF INH IH (14:13)
[2020-06-03] MEDS: Inhaler, Assist Device 1 EACH MC (14:14)
--- NOTE | 2020-06-05 11:28 | W.PFT ---
Date of service: 06/03/20 Time of Service: 01:03 Pulmonary Function Test Result Interpretation Spirometry: Moderately severe obstructive airways disease with significant bronchodilator response Lung Volumes: No evidence of restriction, mild to moderate hyperinflation and air trapping Diffusion Capacity: Normal Airway Pressure: Elevated Impression Moderately severe obstructive airways disease with significant bronchodilator response, this is associated with mild to moderate hyperinflation and air trapping and elevated airways resistance Clinical Correlation therefore is recommended.
== END 2020-06-03 04:33 ==
PROVIDERS: PCP Nurse Practitioner Family; Visit Provider Nurse Practitioner Family
DX: R06.09 Other forms of dyspnea (principal); Z87.891 Personal history of nicotine dependence; Z87.09 Personal history of other diseases of the respiratory system
CPT/HCPCS: 94060; 94726; 94729

== ENCOUNTER 2020-06-17 09:00 | Outpatient (REF) | payer OTHER, SELFPAY ==
--- OUTSIDE RECORDS SUMMARY | 2020-06-17 09:04 | XMS_ITS ---
:1965 Author Care Team Providers Name Role Phone TANK WHITLOCK 3RD PRESSMAN Primary Care Provider [phone] [facility] MEDICAL RECORDS Primary Care Provider [phone] Allergies Code Code System Name Reaction Severity Status Onset Wellbutrin ? ? Deactivated ? Medications Name Status Start Date Stop Date ? ? buspirone 15 mg tablet Active ? Not avail able TAKE ONE TABLET BY MOUTH TWICE DAILY cyclobenzaprine 10 mg tablet Active ? Not available TK 1 T PO Q 8 H PRN diazepam 2 mg tablet Active ? Not availab le TK 1 T PO BID PRF MUSCLE SPASM diclofenac sodium Active ? Not available 3% transdermal gel- apply to affected area BID duloxetine 60 mg capsule,delayed release Active ? Not available TAKE 1 CAPSULE BY MOUTH EVERY DAY Flovent HFA 110 mcg/actuation aerosol inhaler Active ? Not available Inhale 2 puffs twice a day by inhalation route. gabapentin 100 mg capsule Active ? Not av ailable TK 1 C PO TID gabapentin 300 mg capsule Active ? Not av ailable Take 2 capsules 3 times a day by oral route. hydrocodone 5 mg-acetaminophen 300 mg tablet Active ? Not available TAKE ONE TABLET BY MOUTH EVERY 8 HOURS NEEDED Klonopin 0.5 mg tablet Active ? Not avail able Take 1 tablet twice a day by oral route as needed. lidocaine 5 % topical patch Active ? Not available APPLY ONE PATCH TOPICALLY TO MOST PAINF UL AREA FOR UP TO 12 HOURS THEN REMOVE FOR 12 HOURS PATCH FREE lisinopril 10 mg tablet Active ? Not avai lable Take 1 tablet every day by oral route. lisinopril 20 mg tablet Active ? Not avai lable TAKE 1 TABLET BY MOUTH EVERY DAY Nicoderm CQ 14 mg/24 hr daily transdermal patch Active ? Not available Apply 1 patch every day by transdermal route. oxycodone 10 mg tablet Active ? Not avail able TAKE 1 TABLET BY MOUTH THREE TIMES DAILY NEEDED FOR PAIN prednisone 10 mg tablet Active ? Not avai lable ProAir HFA 90 mcg/actuation aerosol Active ? Not available inhaler propranolol 40 mg tablet Active ? Not jannette ilable TAKE 1 TABLET BY MOUTH TWICE A DAY Symbicort 160 mcg-4.5 mcg/actuation HFA Active ? Not available aerosol inhaler Topicort 0.05 % topical gel Active ? Not available APPLY A THIN LAYER TO THE AFFECTED AREA (S) BY TOPICAL ROUTE 2 TIMES PER DAY ; RUB IN GENTLY AND COMPLETELY Tylenol-Codeine #3 300 mg-30 mg tablet Active ? Not available Take 1 tablet by oral route at bedtime. Problems Name Status Onset Date Source ? Dysthymia Active ? History Hypersomnia Active ? History Obstructive Sleep Apnea Syndrome Active ? History Asthma Active ? History Procedures Date Name Performed by ? ? Back Surgery Information not avai lable Results Lab Results None recorded. Past Encounters None recorded. Social History Tobacco Smoking Status Current Every Day Smoker Notes: 1/ 2 ppd, started at age 19 Vaccine List None recorded. Plan of Care Reminders Provider Appointments None ? ? recorded. Lab None ? ? recorded. Referral None ? ? recorded. Procedures None ? ? recorded. Surgeries None ? ? recorded. Imaging None ? ? recorded. Vitals 03/22/2018 12:30PM New Patient 47 Height Weight BMI Blood Pressure 175.26 cm 96.66 kg 31.5 kg/m2 140/98 mm[Hg] 06/28/2012 Height Weight Blood Pressure 175.26 cm 96.16 kg 120/90 mm[Hg] 04/19/2012 Height Weight Blood Pressure 175.26 cm 95.25 kg 132/100 mm[Hg]
[2020-06-17 14:03] LABS: ALT 42 U/L (16-63); AST 23 U/L (15-37); Albumin 4.1 g/dL (3.4-5.0); Alkaline Phosphatase 91 U/L (46-116); BUN 18 mg/dL (7-18); Bilirubin, Total 0.4 mg/dL (0.2-1.0); CREATININE 1.2 mg/dL (0.70-1.30); Calcium 9.4 mg/dL (8.5-10.1); Calculated LDL 134 mg/dL (<100); Chloride 104 mmol/L (98-107); Cholesterol 219 mg/dL (<200); Glucose 105 mg/dL (74-106); HDL Cholesterol 53 mg/dL (40-60); Potassium 4.7 mmol/L (3.5-5.1); Sodium 139 mmol/L (136-145); Total Protein 7.4 g/dL (6.4-8.2); Triglyceride 161 mg/dL (<150)
[2020-06-17 16:32] LABS: Hemoglobin A1C 5.4 % (<5.7)
== END 2020-06-17 09:20 ==
LOC: NCHCN 09:00
PROVIDERS: PCP Nurse Practitioner Family; Visit Provider Nurse Practitioner Family
DX: R73.03 Prediabetes (principal); E78.5 Hyperlipidemia, unspecified; I10 Essential (primary) hypertension; N28.9 Disorder of kidney and ureter, unspecified
CPT/HCPCS: 80053; 80061; 83036

== ENCOUNTER 2020-07-08 20:55 | Outpatient (REF) | payer OTHER, SELFPAY ==
[2020-07-08 22:01] LABS: Anion Gap 7.2 mmol/L (3-11); BUN 20 mg/dL (7-18); CO2 27.8 mmol/L (21.0-32.0); CREATININE 1.1 mg/dL (0.70-1.30); Calcium 9.2 mg/dL (8.5-10.1); Chloride 104 mmol/L (98-107); Glucose 113 mg/dL (74-106); Sodium 139 mmol/L (136-145)
[2020-07-08 22:14] LABS: HCT 46.3 % (40.0-50.0); HGB 16.1 g/dL (13.5-17.5); MCH 32.3 pg (27.0-33.0); MCHC 34.8 % (32.0-36.0); MPV 9.7 fL (8.0-11.0); Platelet Count 225 10^3/uL (130-400); RBC 4.98 10^6/uL (4.36-5.78); RDW 12.5 % (11.8-14.1); RDW-SD 42.8 fL; WBC 6.54 10^3/uL (4.4-10.8)
== END 2020-07-08 20:56 | disposition home or self-care (01) ==
LOC: NCHCN 20:55
PROVIDERS: PCP Nurse Practitioner Family; Visit Provider Nurse Practitioner Family
DX: R73.03 Prediabetes (principal); N28.89 Other specified disorders of kidney and ureter; Z87.442 Personal history of urinary calculi
CPT/HCPCS: 80048; 85027

== ENCOUNTER 2020-08-16 03:37 | Outpatient (CLI) | payer OTHER, SELFPAY ==
--- NOTE | 2020-08-16 | DI.RAD_ITS ---
EXAM: XR CERVICAL SPINE 1V CLINICAL HISTORY: S/P ACDF,FUSION,Z98.1 TECHNIQUE: COMPARISON: No exams were available for comparison FINDINGS: Two views were obtained. There are metallic devices projected over the C5-6 and C6-7 disc levels on these lateral views. No other significant abnormality seen. IMPRESSION: RADIATION DOSE DELIVERED: Total DLP
== END 2020-08-16 03:57 ==
PROVIDERS: PCP Nurse Practitioner Family; Visit Provider Physician Assistant Medical
DX: Z98.1 Arthrodesis status (principal); M54.2 Cervicalgia
CPT/HCPCS: 72020

== ENCOUNTER 2020-10-09 02:35 | Outpatient (CLI) | payer OTHER, SELFPAY ==
--- NOTE | 2020-10-09 | DI.RAD_ITS ---
Exam(s) XR CERVICAL SP ANDREWS TRAUMA 2-3V EXAM: XR CERVICAL SP ANDREWS TRAUMA 2-3V CLINICAL HISTORY: S/P CERVICAL SPINE FUSION,Z98.1. TECHNIQUE: 2D digital imaging was performed. COMPARISON: CR XR CERVICAL SPINE 1V from 08/16/2020 FINDINGS: Again noted the previously described metallic intervertebral disc space divide ower XXXX at C5-6 and C6-7 levels. These appear unchanged in position. Do not appear to change position with flexion exte nsion. The disc space height at these 2 levels is maintained and the other disc spaces above this le hernandez exhibit normal height and no listhesis. There is no facet arthropathy evident. Bone density is normal. There is no radiographic evidence of osteomyelitis. IMPRESSION: Stable appearance. DATA REPOSITORY: RADIATION DOSE DELIVERED:
== END 2020-10-09 02:55 ==
PROVIDERS: PCP Nurse Practitioner Family; Visit Provider Neurological Surgery
DX: Z98.1 Arthrodesis status (principal); M54.2 Cervicalgia
CPT/HCPCS: 72040

== ENCOUNTER 2020-12-24 14:05 | Outpatient (REF) | payer OTHER, SELFPAY ==
[2020-12-25 23:03] LABS: Campylobacter PCR Negative (Negative); Salmonella PCR Negative (Negative); Shiga Toxin PCR Negative (Negative); Shigella/Enteroinvasive Ecoli Negative (Negative)
== END 2020-12-24 14:06 | disposition home or self-care (01) ==
LOC: NCHCN 14:05
PROVIDERS: PCP Nurse Practitioner Family; Visit Provider Nurse Practitioner Family
DX: R19.7 Diarrhea, unspecified (principal)
CPT/HCPCS: 87329; 87505; 87177

== ENCOUNTER 2021-03-03 03:10 | Outpatient (CLI) | payer OTHER, SELFPAY ==
[2021-03-03] MEDS: Inhaler, Assist Device 1 EACH MC (10:38)
[2021-03-03] MEDS: Albuterol HFA 18 GM 200 PUFF INH IH (10:38)
--- NOTE | 2021-03-04 17:26 | W.PFT ---
Date of service: 03/03/21 Time of Service: 09:58 Pulmonary Function Test Result Requesting Provider Katie Molina Indications: Disability determination Interpretation Spirometry: There is moderate airflow obstruction. There is a significant bronchodilator effect. There is inspiratory loop blunting on the flow volume loop. Impression Moderate airflow obstruction with a significant bronchodilator effect. In the correct clinical context this could represent COPD, asthma or asthma COPD overlap syndrome. The inspiratory blunting on the flow volume loop could represent vocal cord dysfunction. Note: When compared to pulmonary function testing completed in 06/03/2020 there is a significant improvement to both the FEV1 and the FVC, there is still a significant bronchodilator effect and inspiratory loop blunting on the flow volume curve is new Clinical Correlation therefore is recommended.
== END 2021-03-03 03:11 | disposition home or self-care (01) ==
LOC: RT 03:10
PROVIDERS: PCP Nurse Practitioner Family; Visit Provider Pediatrics Pediatric Rheumatology
DX: Z02.71 Encounter for disability determination (principal); J44.9 Chronic obstructive pulmonary disease, unspecified; R06.09 Other forms of dyspnea; R06.2 Wheezing; F17.290 Nicotine dependence, other tobacco product, uncomplicated; J30.2 Other seasonal allergic rhinitis
CPT/HCPCS: 94060

== ENCOUNTER 2021-06-23 02:19 | Outpatient (CLI) | payer BC, SELFPAY ==
--- NOTE | 2021-06-23 | DI.RAD_ITS ---
Exam(s) XR CERVICAL SP ANDREWS TRAUMA 2-3V EXAM: XR CERVICAL SP ANDREWS TRAUMA 2-3V CLINICAL HISTORY: S/P ACDF,6 MO F/U,CERVICAL DISC DISEASE,M50.90. TECHNIQUE: 2D digital imaging was performed. COMPARISON: CR XR CERVICAL SP ANDREWS TRAUMA 2-3V from 10/09/2020 FINDINGS: Again noted are the previously described metallic intervertebral disc space devices at C5-6 and C6-7 levels. These appear stable on the flexion extension views. Disc space height at these levels maint ained as well as the disc spaces above and below. No offset of the spinal laminar line. No facet heidi int changes. IMPRESSION: Stable appearance DATA REPOSITORY: RADIATION DOSE DELIVERED:
== END 2021-06-23 02:39 ==
PROVIDERS: PCP Nurse Practitioner Family; Visit Provider Neurological Surgery
DX: M47.812 Spondylosis without myelopathy or radiculopathy, cervical region (principal); M48.02 Spinal stenosis, cervical region; Z98.1 Arthrodesis status; M50.822 Other cervical disc disorders at C5-C6 level; M50.823 Other cervical disc disorders at C6-C7 level
CPT/HCPCS: 72040

== ENCOUNTER 2021-06-26 18:40 | Outpatient (REF) | payer BC, SELFPAY ==
[2021-06-26 15:27] LABS: Hemoglobin A1C 5.3 % (<5.7)
[2021-06-26 15:36] LABS: ALT 38 U/L (16-63); AST 20 U/L (15-37); Albumin 4.4 g/dL (3.4-5.0); Alkaline Phosphatase 89 U/L (46-116); BUN 21 mg/dL (7-18); Bilirubin, Total 0.4 mg/dL (0.2-1.0); CREATININE 1.4 mg/dL (0.70-1.30); Calculated LDL 138 mg/dL (<100); Chloride 106 mmol/L (98-107); Cholesterol 228 mg/dL (<200); Estimated GFR 52.81 (mL/min/1.73m2); Glucose 100 mg/dL (74-106); HDL Cholesterol 48 mg/dL (40-60); Potassium 4.6 mmol/L (3.5-5.1); Sodium 139 mmol/L (136-145); Total Protein 7.6 g/dL (6.4-8.2); Triglyceride 210 mg/dL (<150)
[2021-06-26 15:49] LABS: Calcium 9.5 mg/dL (8.5-10.1)
== END 2021-06-26 18:41 | disposition home or self-care (01) ==
LOC: NCHCN 18:40
PROVIDERS: PCP Nurse Practitioner Family; Visit Provider Nurse Practitioner Family
DX: R73.01 Impaired fasting glucose (principal); I10 Essential (primary) hypertension; E78.5 Hyperlipidemia, unspecified; R19.7 Diarrhea, unspecified
CPT/HCPCS: 80053; 80061; 83036

== ENCOUNTER 2021-08-13 15:15 | Outpatient (CLI) | payer BC, SELFPAY ==
--- NOTE | 2021-08-13 13:45 | DI.RAD_ITS ---
Exam(s) XR SHOULDER RT COMPLETE 2+V EXAM: XR SHOULDER RT COMPLETE 2+V CLINICAL HISTORY: SHOULDER PAIN TECHNIQUE: COMPARISON: CR XR SHOULDER LT COMPLETE 2+V from 08/13/2021 FINDINGS: Two views were obtained. Cartilaginous joint space of the glenohumeral joint may be slightly thin. There are mild marginal osteophytes of the glenoid. Humeral head appears intact. There are prominent hypertrophic changes at the AC joint. IMPRESSION: degenerative changes as described above. RADIATION DOSE DELIVERED: Total DLP
--- NOTE | 2021-08-13 13:45 | DI.RAD_ITS ---
Exam(s) XR SHOULDER LT COMPLETE 2+V EXAM: XR SHOULDER LT COMPLETE 2+V CLINICAL HISTORY: SHOULDER PAIN TECHNIQUE: COMPARISON: No exams were available for comparison FINDINGS: Two views were obtained. The cartilaginous joint space of the glenohumeral joint may be mildly thinn ed. There are marginal osteophytes of the glenoid, particularly inferiorly. Minimal marginal osteop hytes of the humeral head noted as well. Mild hypertrophic degenerative changes appear to be present at AC joint. No other significant bony or soft tissue abnormality seen. IMPRESSION: RADIATION DOSE DELIVERED: Total DLP
== END 2021-08-13 15:16 | disposition home or self-care (01) ==
LOC: DIORS 15:15
PROVIDERS: PCP Nurse Practitioner Family; Referring Provider Nurse Practitioner Family; Visit Provider Student in an Organized Health Care Education/Training Program
DX: M25.511 Pain in right shoulder (principal); M25.512 Pain in left shoulder; M19.011 Primary osteoarthritis, right shoulder; M19.012 Primary osteoarthritis, left shoulder
CPT/HCPCS: 73030

== ENCOUNTER 2021-08-14 07:50 | Outpatient (CLI) | payer BC, SELFPAY ==
--- NOTE | 2021-08-14 06:00 | DI.RAD_ITS ---
Exam(s) XR PAIN CLINIC LUMBAR SP 2V EXAM: XR PAIN CLINIC LUMBAR SP 2V CLINICAL HISTORY: Dx: Lumbar Spondylosis. TECHNIQUE: Fluoroscopy was provided for the referring physician for guidance with performing injecti on procedure. COMPARISON: No exams were available for comparison FINDINGS: Please see procedure note for details. Fluoro time: 57.2 seconds RADIATION DOSE DELIVERED: chelsie Timmons=19.21 mGy
[2021-08-14 08:11] VITALS: BP 122/92; PULSE 70; RESP 16; TEMP 36.7; O2SAT 98
--- NOTE | 2021-08-14 08:43 | PDOC.PAIN ---
Pain Clinic Procedure Note Procedure Note Procedure Note: Lumbar/Sacral Medial Branch Blocks Kyree Mann has been referred to the [facility] for lumbar/sacral medial branch blocks. COMMENTS: I previously evaluated the patient in the office. His pre-procedure pain VAS was 4/10. Dx: Lumbosacral spondylosis without myelopathy Patient was interviewed and the medical record reviewed. There were no medical, pharmacologic, radiographic or other structural contraindications to attempting fluoroscopically guided local anesthetic lumbar/sacral medial branch blocks. Risks and expected side effects as well as potential benefit of the procedure were reviewed and voiced concerns addressed. The printed consent form was signed and witnessed. Standard time-out procedure was performed. Patient was placed in the prone position on the fluoroscopy table and automated blood pressure cuff and pulse oximeter applied. The skin entry points for approaching the anatomic target points of the segmental medial branches of bilateral L3-L5DR were identified with anfluoroscopy and marked. Following thorough Chlorhexadine preparation of the skin and draping and 1% lidocaine infiltration of the skin entry points and subcutaneous tissues, a 25 gauge 3.5 spinal needle was placed under fluoroscopic guidance down on to the target point for each respective segmental medial branch.Position was confirmed in A/P, oblique and lateral views with 0.25ml of omnipaque 240. At this point 0.5ml 0.5% Bupivacaine was injected at each sensory nerve. Vital signs were stable throughout the procedure and were as recorded in the docflowsheet by the nursing staff. Follow up plans and appointments were discussed and was instructed to keep careful note of how the usual pain was modified by these injections. Specifically was asked to keep a pain diary for the next 4 hours using a numeric pain scale of 0-10 and report these results at the follow-up visit. Post procedure instruction was given as documented in the nursing documentation and having met discharge criteria. Patient was discharged from the [facility]. Based on the medial branches blocked today, if the patient has adequate relief and we are able to proceed to radiofrequency ablation, the treatment should result in the denervation of the bilateral L4-L5 and L5-S1 facet joints. We would expect to denervate a total of 4 facets during the radiofrequency ablation. COMMENTS: Post-procedure pain VAS was 2/10. Ivan Pavon DO, MPH [facility] CC: [place]
[2021-08-14] MEDS: Omnipaque 240 MG/ML 50 ML BTL IJ (08:53)
[2021-08-14 08:54] VITALS: BP 129/74; PULSE 66; RESP 12; O2SAT 99
[2021-08-14] MEDS: Bupivacaine 0.5% Pres-Free 10 ML VIAL IJ (08:54)
== END 2021-08-14 07:51 | disposition home or self-care (01) ==
LOC: PC 07:50
PROVIDERS: PCP Nurse Practitioner Family; Visit Provider Preventive Medicine Occupational Medicine
DX: M47.817 Spondylosis without myelopathy or radiculopathy, lumbosacral region (principal)
CPT/HCPCS: 64493; 64494; 72100; Q9967

== ENCOUNTER → 2021-09-11 02:10 | Outpatient (CLI) | payer BC, SELFPAY ==
--- NOTE | 2021-09-11 10:45 | DI.US_ITS ---
Exam(s) US PAIN CLINIC NEEDLE GUIDANCE EXAM: US PAIN CLINIC NEEDLE GUIDANCE CLINICAL HISTORY: CERVICAL MUSCLE PAIN, SUBACROMIAL IMPINGEMENT, M54.2, M75.4 TECHNIQUE: Ultrasound performed using standard protocol. COMPARISON: No exams were available for comparison FINDINGS: Ultrasound guidance was provided for injections rhomboid/trapezius region performed by Dr. Pavon. Ple ase see Dr. Pavon's procedure note. IMPRESSION: DATA REPOSITORY:
--- NOTE | 2021-09-11 11:40 | PDOC.PAIN_ITS ---
Pain Clinic Procedure Note Procedure Note Procedure Note: ULTRASOUND GUIDED BILATERAL TRAPZIUOS AND RHOMBOID MUSCLE TRIGGER POINT INJECTIONS Pre-Procedural Evaluation: Kyree Mann has been referred to the [facility] Management Center for an Ultrasound Guided bilateral trapeziuous and rhmboid muscle trigger point injections for a chief complaint of upper back and neck pain. Pre-procedure Pain Score: 7/10 Patient was interviewed and the medical record reviewed. There were no medical, pharmacologic, radiographic, or other structural contraindications to preforming an ultrasound guided injection. Risks and expected side effects as well as potential benefits of the procedure were reviewed. The patient consent form was signed and witnessed. Standard time-out procedure was performed. The use of direct ultrasound visualization of the needle (rather than a non- guided injection) was required to increase patient safety by excluding inadvertent intramuscular, intratendinous, or intraneural needle placement and minimizing bleeding by avoiding osteochondral or vascular injury from the needle. Additionally, the increased accuracy of placement may increase clinical effectiveness and will allow higher diagnostic specificity when evaluating effectiveness of this injection. Procedure Description: The patient was placed in the prone position and automated blood pressure cuff and pulse oximeter applied for monitoring during the procedure and recorded in the medical record. Pre-injection ultrasound scanning of the area of interest was performed using linear transducer, identifying relevant anatomy, landmarks, and neurovascular structures allowing for optimal needle path. The site was then prepared in the usual sterile fashion, using thorough Chlorhexadine preparation of the skin and sterile draping. The same ultrasound transducer was then passed into the sterile field using sterile probe cover and sterile ultrasound gel. The injection target was again visualized. Skin and subcutaneous tissues were anesthetized with 5 mL of 1% Lidocaine. A 3.5 21G Pajunk Ultrasound needle was placed under live ultrasound guidance, using an in-plane approach, to the target area. After visualization of the needle tip at the target area, I injected 1 cc of 2% Lidocaine was delivered after negative aspiration for blood This was followed by 1/4 cc of Depomedrol (40 mg/cc) and this was flushed with 1/2 cc of 1% Lidocaine and the needle was removed. Ultrasound images were captured and stored for documentation purposes. Post-procedure Pain Score:0/10 Vital signs were stable throughout the procedure and were as recorded in the docflowsheet by the nursing staff. Follow up plans and appointments were discussed with the patient.Post procedure instruction was given as documented in nursing documentation and having met discharge criteria, they were discharged from the Pain Management Center. COMMENTS: He did well with the procedure and will begin stretching tomorrow. Ivan Pavon DO, MPH [facility] Management [facility]
[2021-09-11 11:43] VITALS: PULSE 60; O2SAT 95
[2021-09-11] MEDS: methylPREDNISolone ACETATE 40 MG/ML VIAL IJ (11:46)
[2021-09-11] MEDS: Lidocaine 2% Pres-Free 5 ML VIAL IJ (11:46)
== END ==
PROVIDERS: PCP Nurse Practitioner Family; Visit Provider Preventive Medicine Occupational Medicine
DX: M54.2 Cervicalgia (principal); M54.6 Pain in thoracic spine; M75.40 Impingement syndrome of unspecified shoulder
CPT/HCPCS: 20552; 76942; J1030

== ENCOUNTER 2021-10-03 17:34 | Outpatient (REF) | payer BC, SELFPAY | END 2021-10-03 17:35 | disposition home or self-care (01) | LOC: NCHCN 17:34 | PROVIDERS: PCP Nurse Practitioner Family; Visit Provider Nurse Practitioner Family | DX: Z51.81 Encounter for therapeutic drug level monitoring (principal) | CPT/HCPCS: 80333 ==

== ENCOUNTER → 2021-11-11 02:05 | Outpatient (CLI) | payer BC, SELFPAY ==
--- NOTE | 2021-11-11 | DI.MRI_ITS ---
Exam(s) MR UPPER JOINT LT WO EXAM: MR UPPER JOINT LT WO CLINICAL HISTORY: LT SHOULDER PAIN, M25.512. TECHNIQUE: Multiplanar multisequence MRI was performed. COMPARISON: CR XR SHOULDER LT COMPLETE 2+V from 08/13/2021 FINDINGS: Mild patient motion artifact. BONES: There is no fracture or contusion pattern. JOINTS: Mild degenerative changes are seen at the acromioclavicular joint. The glenohumeral joint is normal. TENDONS: Supraspinatus: There is hyperintense signal seen in the supraspinatus tendon at its insertion site co nsistent with a partial tear. There is tendinosis of the supraspinatus tendon. Infraspinatus: Unremarkable. Subscapularis: There is tendinosis of the subscapularis tendon. Teres Minor: Unremarkable. Biceps and [place]: Unremarkable. MUSCLES: Unremarkable. GLENOID LABRUM: Unremarkable on this noncontrast examination. SOFT TISSUES: There is a small amount of fluid in the subcoracoid bursa. LIGAMENTS: Unremarkable. OTHER: Subacromial and subdeltoid bursae are unremarkable. IMPRESSION: 1. Partial intrasubstance tear of the supraspinatus tendon at its insertion site. 2. Tendinosis of the subscapularis tendon. 3. Degenerative changes of the acromioclavicular joint. 4. Small amount of fluid in the subcoracoid bursa. DATA REPOSITORY:
--- NOTE | 2021-11-11 | DI.MRI_ITS ---
Exam(s) MR CERVICAL SPINE WO/W EXAM: MR CERVICAL SPINE WO/W CLINICAL HISTORY: CERVICAL SPONDYLOSIS WITH RADICULOPATHY,M47.22 TECHNIQUE: Multiplanar multisequence MRI of the cervical spine was performed. CONTRAST MATERIAL: IV Contrast: 20 ML of Dotarem contrast administered. COMPARISON: MR MR CERVICAL SPINE WO from 04/03/2020 CR XR CERVICAL SP ANDREWS TRAUMA 2-3V from 06/23/2021 FINDINGS: BONES: Vertebral body heights are maintained. Status post disc fusion at C5-6 and C6-C7. Interverteb ral disc spaces are normal. Alignment is normal. Bone marrow signal intensity is within normal limits . CERVICAL CORD: Craniovertebral junction is unremarkable. The cervical cord is normal size and signal intensity. No lesion is present. SOFT TISSUES: Unremarkable. ENHANCEMENT: No suspicious enhancement identified. C2-3: No disc herniation or bulge is identified. No significant central spinal canal or neural forami nal stenosis. C3-4: No disc herniation or bulge is identified. No significant central spinal canal or neural forami nal stenosis C4-5: No disc herniation or bulge is identified. No significant central spinal canal or neural forami nal stenosis C5-6: No disc herniation or bulge is identified. No significant central spinal canal or neural forami nal stenosis C6-7: No disc herniation or bulge is identified. No significant central spinal canal or neural forami nal stenosis C7-T1: No disc herniation or bulge is identified. No significant central spinal canal or neural vanessa inal stenosis IMPRESSION: 1. C5-6 and C6-7 disc fusion. 2. No focal disc herniation central spinal canal or neural foraminal stenosis is seen in the cervical spine. DATA REPOSITORY:
[2021-11-11] MEDS: Normal Saline Flush 10 ML SYR IVP (14:20)
[2021-11-11] MEDS: Gadoterate meglumine 20 ML SYRINGE IVP (14:21)
== END ==
PROVIDERS: PCP Nurse Practitioner Family; Visit Provider Physician Assistant Surgical
DX: M47.22 Other spondylosis with radiculopathy, cervical region (principal); M75.112 Incomplete rotator cuff tear or rupture of left shoulder, not specified as traumatic; M19.012 Primary osteoarthritis, left shoulder; M67.912 Unspecified disorder of synovium and tendon, left shoulder; Z98.1 Arthrodesis status
CPT/HCPCS: 72156; 73221

== ENCOUNTER 2022-01-05 09:26 | Outpatient (REF) | payer BC, SELFPAY ==
[2022-01-05 15:49] LABS: BUN 20 mg/dL (7-18); CREATININE 1.3 mg/dL (0.70-1.30); Chloride 105 mmol/L (98-107); Estimated GFR 57.53 (mL/min/1.73m2); Glucose 112 mg/dL (74-106); Potassium 4.6 mmol/L (3.5-5.1); Sodium 138 mmol/L (136-145)
== END 2022-01-05 09:27 | disposition home or self-care (01) ==
LOC: NCHCN 09:26
PROVIDERS: PCP Nurse Practitioner Family; Visit Provider Nurse Practitioner Family
DX: E78.5 Hyperlipidemia, unspecified (principal); J44.9 Chronic obstructive pulmonary disease, unspecified; F10.10 Alcohol abuse, uncomplicated; K30 Functional dyspepsia; R19.7 Diarrhea, unspecified
CPT/HCPCS: 80048

== ENCOUNTER 2022-07-01 14:31 | Outpatient (CLI) | payer BC, SELFPAY ==
[2022-07-01 14:49] VITALS: BP 132/83; PULSE 89; RESP 20; TEMP 36.6; O2SAT 98
[2022-07-01 15:40] VITALS: PULSE 70; O2SAT 98
[2022-07-01] MEDS: Lidocaine 2% Pres-Free 5 ML VIAL IJ (15:41)
[2022-07-01] MEDS: methylPREDNISolone ACETATE 40 MG/ML VIAL IJ (15:41)
--- NOTE | 2022-07-15 15:04 | PDOC.PAIN ---
Date of service: 07/01/22 Time of Service: 16:00 US Guided Injections Type of Ultrasound Guided Injection: Middle back (trapezius and rhomboid muscles) Bilateral Trigger Point Injection Pre-Procedural Evaluation Doing well. Post-procedure pain VAS was 1/10. Pre-Procedural Pain Score Pre-procedural pain score: 6/10 Reason for Exam Pain and muscle spasm in the middle to upper back Patient Interview Patient was interviewed and medical record reviewed: Yes There were contraindications noted to performing an US guided procedure. Risks,expected side effects, potential benefits were reviewed. The patient consent form was signed and witnessed. Standard time out procedure was performed. Patient Safety Marked - no skin abnormalities Procedure Description No sedation given for procedure Patient was placed in the prone position and the following Blood pressure and Pulse Ox applied. Pre-Procedure ultrasound scanning performed using a Linear 18 MHz probe Site Preparation Chloroprep and draps Local Anesthesia of Lidocaine 1%. A 21 G 3.5 Pajunk ultrasound needle was placed under live US guidance using an in-plane approach to the target area. After visualization of the needle tip at the target area Dep-Medrol 80mg per cc and Lidocaine 2% were used. Negative aspiration for blood. [place] were removed without difficulty. Ultrasound images were captured and stored. Patient Mental Status Patient was alert and awake during procedure Vital Signs Vital signs were stable throughout the procedure and recorded by nursing. Follow Up/Discharge Follow up plans and appointments were discussed with patient. Post procedure instruction was given as documented in nursing documentation. Discharge criteria met and patient discharged from Pain Management Center: Yes Post Procedure Pain Post Procedure Pain: 1/10 Patient tolerated procedure well and No complications Procedure Outcome: Successful Trigger Point Injection 3+muscles Non US Guided Injections Procedure Description Patient was placed in the prone position Post Procedure Pain Post Procedure Pain: 1/10
== END 2022-07-01 14:32 | disposition home or self-care (01) ==
LOC: PC 14:32
PROVIDERS: PCP Nurse Practitioner Family; Visit Provider Preventive Medicine Occupational Medicine
DX: M54.6 Pain in thoracic spine (principal)
CPT/HCPCS: 20553; 76942; J1030

== ENCOUNTER 2022-08-05 12:10 | Outpatient (REF) | payer BC, SELFPAY ==
[2022-08-05 22:46] LABS: Campylobacter PCR Negative (Negative); Salmonella PCR Negative (Negative); Shiga Toxin PCR Negative (Negative); Shigella/Enteroinvasive Ecoli Negative (Negative)
== END 2022-08-05 12:11 | disposition home or self-care (01) ==
LOC: NCHCN 12:10
PROVIDERS: PCP Nurse Practitioner Family; Visit Provider Nurse Practitioner Family
DX: A09 Infectious gastroenteritis and colitis, unspecified (principal)
CPT/HCPCS: 87505; 87177

== ENCOUNTER 2022-10-06 18:29 | Outpatient (REF) | payer BC, SELFPAY ==
[2022-10-07 20:39] LABS: PSA, Screening 2.8 ng/mL (<=3.5)
== END 2022-10-06 18:30 | disposition home or self-care (01) ==
LOC: NCHCN 18:29
PROVIDERS: PCP Nurse Practitioner Family; Visit Provider Nurse Practitioner Family
DX: R39.89 Other symptoms and signs involving the genitourinary system (principal); Z12.5 Encounter for screening for malignant neoplasm of prostate
CPT/HCPCS: 84153

== ENCOUNTER 2022-12-31 13:57 | Outpatient (REF) | payer BC, SELFPAY | END 2022-12-31 13:58 | disposition home or self-care (01) | LOC: LBN 13:57 | PROVIDERS: PCP Nurse Practitioner Family; Visit Provider Internal Medicine Gastroenterology | DX: R19.7 Diarrhea, unspecified (principal); K92.2 Gastrointestinal hemorrhage, unspecified | CPT/HCPCS: 87329; 87177 ==

== ENCOUNTER 2023-01-01 18:43 | Outpatient (REF) | payer BC, SELFPAY | END 2023-01-01 18:44 | disposition home or self-care (01) | LOC: LBN 18:43 | PROVIDERS: PCP Nurse Practitioner Family; Visit Provider Internal Medicine Gastroenterology | DX: R19.7 Diarrhea, unspecified (principal); K92.2 Gastrointestinal hemorrhage, unspecified | CPT/HCPCS: 87177 ==

== ENCOUNTER 2023-01-13 02:06 | Outpatient (CLI) | payer BC, SELFPAY ==
[2023-01-13 12:01] LABS: Anion Gap 10.3 mmol/L (3-11); BUN 20 mg/dL (7-18); CO2 23.7 mmol/L (21.0-32.0); CREATININE 1.6 mg/dL (0.70-1.30); Calcium 9.1 mg/dL (8.5-10.1); Chloride 107 mmol/L (98-107); Estimated GFR 50.57 (mL/min/1.73m2); Glucose 101 mg/dL (74-106); Potassium 4.1 mmol/L (3.5-5.1); Sodium 141 mmol/L (136-145)
== END 2023-01-13 02:07 | disposition home or self-care (01) ==
LOC: LBO 02:06
PROVIDERS: PCP Nurse Practitioner Family; Visit Provider Nurse Practitioner Family
DX: I10 Essential (primary) hypertension (principal); E78.5 Hyperlipidemia, unspecified; K30 Functional dyspepsia; R19.7 Diarrhea, unspecified; F41.8 Other specified anxiety disorders
CPT/HCPCS: 36415; 80048; 87207

== ENCOUNTER 2023-01-26 19:42 | Outpatient (REF) | payer BC, SELFPAY ==
[2023-01-26 18:20] LABS: Anion Gap 9.9 mmol/L (3-11); BUN 17 mg/dL (7-18); CO2 25.1 mmol/L (21.0-32.0); CREATININE 1.4 mg/dL (0.70-1.30); Calcium 9.2 mg/dL (8.5-10.1); Chloride 109 mmol/L (98-107); Estimated GFR 59.36 (mL/min/1.73m2); Glucose 101 mg/dL (74-106); Potassium 4.7 mmol/L (3.5-5.1); Sodium 144 mmol/L (136-145)
== END 2023-01-26 19:43 | disposition home or self-care (01) ==
LOC: NCHCN 19:42
PROVIDERS: PCP Nurse Practitioner Family; Visit Provider Nurse Practitioner Family
DX: Z00.00 Encounter for general adult medical examination without abnormal findings (principal); I10 Essential (primary) hypertension; N18.31 Chronic kidney disease, stage 3a
CPT/HCPCS: 80048

== ENCOUNTER 2023-03-03 00:39 | Emergency (ER) | payer BC, SELFPAY ==
[2023-03-03] VITALS (31 sets, daily range): BP systolic 79–109; BP diastolic 35–69; PULSE 56–80; RESP 12–19; TEMP 36.4; O2SAT 97
--- NOTE | 2023-03-03 00:30 | RT.EKG_ITS ---
APPROVED REPORT Exam: Resting ECG Reason for Exam: syncope Patient Location: E HR:68 bpm ECG Measurements Heart Rate 68 AXIS ME 171 P 64 QRSd 99 QRS 43 QT 412 T 50 QTc 439 Conclusion Sinus rhythm...normal P axis, V-rate 60- 99 Physician: no stemi, intervals normal
--- NOTE | 2023-03-03 00:48 | W.ED.GENAD ---
Discharge Plan Disposition Patient Disposition: Home Discharge Details Chief Complaint: [id number] Clinical Impression: Acute dehydration, Syncope, Acute hypokalemia, Hypocalcemia Primary Care Provider: Mari Hill ED Provider: Isaiha Nettles Home Meds and New Rx's Prescriptions: No Action budesonide-formoterol [Symbicort] 80-4.5 mcg/actuation HFA aerosol inhaler 1 puff IH .QD fluticasone propionate [Children's Flonase Allergy Rlf] 50 mcg/actuation spray,suspension 1 spray intranasal BID Rx Instructions: administer into each nostril desoximetasone [Topicort] 0.05 % cream 1 applic topical BID topiramate [Topamax] 25 mg tablet 25 mg PO BID Atrovent HFA 17 mcg/actuation HFA aerosol inhaler 2 puff inhalation QID bupropion HCl 150 mg tablet extended release 24 hr 150 mg PO QAM buspirone 15 mg tablet 15 mg PO TID loratadine [Claritin Liqui-Gel] 10 mg capsule 10 mg PO DAILY clonazepam [Klonopin] 0.5 MG tablet 0.5 mg PO BID PRN albuterol sulfate [ProAir HFA] 8.5 GM HFA aerosol inhaler 2 puff Inhalation qid prn duloxetine [Cymbalta] 60 MG capsule,delayed release(DR/EC) 60 mg PO DAILY desoximetasone 60 GM ointment 60 gm Topical PRN PRN propranolol 40 mg tablet 40 mg PO BID lisinopril 40 mg tablet 40 mg PO DAILY oxycodone 10 mg tablet 10 mg PO TID PRN cyclobenzaprine 10 mg tablet 10 mg PO TID PRN (Reason: muscle spasm) Qty: 10 0RF lidocaine 5 % adhesive patch,medicated 1 patch topical DAILY Qty: 15 0RF Rx Instructions: leave on most painful area for up to 12 hrs Discharge Instructions Instructions: Dehydration (ED) Additional Instructions: At this time I suspect your syncope was secondary to dehydration. Your potassium and calcium were low, and we have replaced these. Please ambulate carefully, get up slowly, and be brought to your colonoscopy appointment by family. If you notice any worsening of your symptoms, or any new symptoms such as vomiting, diarrhea, fever, chills, shortness of breath, chest pain, numbness, weakness, or fainting , please return immediately to the emergency department for reevaluation. Please follow up with your primary care provider as soon as possible for reassessment and reevaluation. As always, it was a pleasure participating in your medical care today. Referrals: Mari Hill [Primary Care Provider] - Medical Decision Making 57-year-old male with a past medical history of chronic back pain, previous episode of syncope while coughing, presents today for evaluation of syncope. Patient has a colonoscopy scheduled at 9 AM tomorrow. He had undergone the full prep, did have some cramps in his extremities, then this evening he got up to go to the bathroom after sleeping and passed out on the way to the bathroom. He hit his right shoulder and may have hit his head. He lost consciousness and does not recall the event. When EMS got there blood pressure was in the 60s systolic. He was given 800 cc of normal saline and brought in for further assessment. Systolic blood pressure upon arrival is in the low 100s. Patient denies any other complaints otherwise. He does admit to mild soreness at the area of the scrape on his right shoulder but no pain in his head neck chest abdomen or pelvis. He denies any chest heaviness or tightness. He denies seeing any blood in his stool. He did follow the prep instructions as directed by Dr. Marlow's office. Last oral intake was at 9 PM last night. Exam demonstrates well-appearing male, slightly dry mucous membranes, normal neurologic assessment. No evidence of trauma to the head neck or back. No midline cervical spine tenderness. Small abrasion noted over the right shoulder but no bony tenderness whatsoever. No significant pain with movement of the shoulder. Symptoms appear consistent with syncope secondary to volume depletion from colonoscopy prep. We will finish off the liter of normal saline and then give an additional liter of lactated Ringer's. Will evaluate for electrolyte abnormalities. EKG demonstrates no abnormalities, intervals normal. Symptoms appear clinically inconsistent with ACS or dysrhythmia. No indication for emergent CT imaging at this time based on clinical assessment and history. No head pain or tenderness. No other concerning red flags or signs of trauma. 2:50 AM Laboratory work-up has returned, no white count bandemia or left shift. Electrolytes demonstrate a sodium of 135, potassium 3.3, magnesium normal. Calcium was notably low at 7.9. Patient was given an initial liter of normal saline followed by an additional liter of lactated Ringer's. Tolerated this well. We gave 1 amp of calcium gluconate, and 10 mEq of potassium IV. Patient tolerated this well. On reassessment patient is feeling well. We did get the patient up and ambulate him. He tolerated this well. Patient stable at this point clinically for discharge. Vital signs stable. at bedside. Patient will be discharged home. I have extensively reviewed the treatment plan and discharge instructions with the patient and their family. I have addressed all patient concerns at this time. The patient and family was made aware of what symptoms to monitor for that would warrant a return to the emergency department. Discussed the plan with the patient and family, they demonstrate verbal understanding and agreement with our assessment and plan at this time. The documentation in this chart was dictated using [employer] dictation software. Please excuse any dictation errors. HPI General Date/Time Provider Initiated Documentation: 03/03/23 01:16. HPI Narrative: 57-year-old male with a past medical history of chronic back pain, previous episode of syncope while coughing, presents today for evaluation of syncope. Patient has a colonoscopy scheduled at 9 AM tomorrow. He had undergone the full prep, did have some cramps in his extremities, then this evening he got up to go to the bathroom after sleeping and passed out on the way to the bathroom. He hit his right shoulder and may have hit his head. He lost consciousness and does not recall the event. When EMS got there blood pressure was in the 60s systolic. He was given 800 cc of normal saline and brought in for further assessment. Systolic blood pressure upon arrival is in the low 100s. Patient denies any other complaints otherwise. He does admit to mild soreness at the area of the scrape on his right shoulder but no pain in his head neck chest abdomen or pelvis. He denies any chest heaviness or tightness. He denies seeing any blood in his stool. He did follow the prep instructions as directed by Dr. Marlow's office. Last oral intake was at 9 PM last night. Related Data Home Medications Medication Instructions Recorded Confirmed albuterol sulfate 90 mcg/actuation 2 puff inhalation qid prn 01/13/18 09/11/21 aerosol inhaler (ProAir HFA) clonazepam 0.5 mg tablet (Klonopin) 0.5 mg PO BID PRN 01/13/18 08/14/21 desoximetasone 0.05 % topical 60 gm topical PRN PRN 01/13/18 08/14/21 ointment duloxetine 60 mg capsule,delayed 60 mg PO DAILY 01/13/18 09/11/21 release (Cymbalta) propranolol 40 mg tablet 40 mg PO BID 02/22/19 08/14/21 budesonide-formoterol HFA 80 1 puff inhalation .QD 06/06/19 09/11/21 mcg-4.5 mcg/actuation aerosol inhaler (Symbicort) cyclobenzaprine 10 mg tablet 10 mg PO TID PRN muscle spasm #10 02/15/20 09/11/21 tabs lidocaine 5 % topical patch 1 patch topical DAILY #15 ea 02/15/20 08/14/21 bupropion HCl 150 mg 24 hr tablet, 150 mg PO QAM 06/09/21 09/11/21 extended release buspirone 15 mg tablet 15 mg PO TID 06/09/21 09/11/21 desoximetasone 0.05 % topical 1 applic topical BID 06/09/21 09/11/21 cream (Topicort) fluticasone propionate 50 1 spray intranasal BID 06/09/21 09/11/21 mcg/actuation nasal spray,suspension (Children's Flonase Allergy Relief) ipratropium bromide 17 2 puff inhalation QID 06/09/21 09/11/21 mcg/actuation HFA aerosol inhaler (Atrovent HFA) loratadine 10 mg capsule (Claritin 10 mg PO DAILY 06/09/21 08/14/21 Liqui-Gel) topiramate 25 mg tablet (Topamax) 25 mg PO BID 06/09/21 08/14/21 lisinopril 40 mg tablet 40 mg PO DAILY 07/15/21 08/14/21 oxycodone 10 mg tablet 10 mg PO TID PRN 07/15/21 08/14/21 Previous Rx's Medication Instructions Recorded cyclobenzaprine 10 mg tablet 10 mg PO TID PRN muscle spasm #10 02/15/20 tabs lidocaine 5 % topical patch 1 patch topical DAILY #15 ea 02/15/20 Allergies Allergy/AdvReac Type Severity Reaction Status Date / Time No Known Allergies Allergy Verified 07/01/22 14:40 General Stated Complaint: [id number] ASHLEY: 3 Review of Systems All systems reviewed & are unremarkable except as noted in HPI and below PFSH All Active Problems (Updated 03/03/23 @ 02:54 by Isaiah Nettles DO) Hypocalcemia (Acute) Acute hypokalemia (Acute) Syncope (Chronic) Acute dehydration (Acute) Cervical radiculopathy (Acute) Subacromial impingement (Acute) Muscle pain, cervical (Acute) Lumbosacral spondylosis without myelopathy (Acute) Syncope (Chronic) Headache, chronic migraine without aura (Acute) Encounter for colorectal cancer screening (Acute) Medical History Dyspepsia Loss of consciousness Renal impairment Impaired fasting glucose COPD (chronic obstructive pulmonary disease) Hyperlipidemia Headache Alopecia totalis Hypertension Asymptomatic microscopic hematuria Lumbar back pain Environmental allergies Asthma, mild intermittent Diverticulitis Diarrhea Depression Anxiety Shingles Sleep apnea Surgical History H/O colonoscopy (03/11/18) Dr Mendez, negative, repeat in 10 years Family History Other Cancer Social History Smoking/Tobacco Use Status: Current every day Tobacco: How many years used: 10 Smoking risk assessment performed?: Yes Alcohol Intake: current Alcohol Intake frequency: holidays/special occasions only Alcohol type: beer Substance use type: marijuana Details: Cannabis daily at for neck pain- Reports it does relieve his pain. 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 Pets and animals: Yes (3) Pets and animals: dog(s) What is your relationship status?: Panel score (0-1 are the most socially isolated patients): 1 What type of physical activity do you participate in: none Seatbelt use: always Do you feel safe at home: Yes Do you feel safe in your relationship?: Yes Exam Narrative Exam Narrative: 1.Const: Well-nourished, Well-developed, appearing stated age 2.Eyes: PERRL, no conjunctival injection, and symmetrical lids. 3.ENT: Atraumatic external nose and ears. Dry MM. Neck: Symmetric, trachea midline, No thyromegaly. There is no evidence of raccoon eyes, mitchell sign, CSF rhinorrhea, mastoid tenderness, cranial crepitus, hemotympanum, exophthalmos, or hyphema. Patient demonstrates intact dentition with no signs of tooth avulsion or fracture, no signs of jaw deformity, no evidence of a LeFort's fracture, with an intact palate, nose and orbital region. There is no evidence of a nasal septal hematoma. No proptosis. Jaw closes symmetrically. Airway is clear. 4.CVS: +S1/S2, No murmurs or gallops. Peripheral pulses 2+ and equal in all extremities. Brisk capillary refill in all extremities. 5.RESP: Unlabored respiratory effort. Clear to auscultation bilaterally. No wheezes rales or rhonchi 6.GI: Soft, Nontender/Nondistended, No hepatosplenomegaly. No guarding or rebound. 7.MSK: Normocephalic/Atraumatic, Extremities w/o deformity or ttp No cyanosis or clubbing, Normal movement of all extremities No midline tenderness to palpation over the CTLS spine. Normal ROM in flexion, extension, side bend, and rotation. Patient has +5 out of 5 strength in the lower extremities in dorsiflexion and plantarflexion, knee flexion and extension, hip flexion and extension. Normal strength for dorsiflexion and plantar flexion of the great toe bilaterally. There is +2 over 2 dorsalis pedis pulses bilaterally. There is normal sensation to the skin with light touch at the foot, knee, and hip. Normal saddle sensation. Good sensation over the deep sural nerve area bilaterally. Reflexes are +2 over 4 in the patellar reflex bilaterally. +5 out of 5 strength in the medial, ulnar, radial nerve distribution bilaterally in the hands as well as intact light touch sensation to these dermatomes on the hands 8.Skin: Warm, Dry. No rashes or lesions. Small abrasion over right scapula. 9.Neuro: frontend engineer II-XII grossly intact. Sensation grossly intact, no focal neurologic deficits. All 6 cardinal planes of vision are fully intact. No evidence of rotatory or vertical nystagmus. The patient demonstrated a normal [id number], good dexterity. There was no evidence of dysdiadochokinesia. Patient was able to ambulate without difficulty. There was no wide-based gait. Romberg testing was normal. Fotm-mh-zmiy testing was normal. Sensation was intact bilaterally as well as muscle strength bilaterally for all extremities. Patient was able to verbalize butter cup with no slurring, or miss pronunciation. 10.Psych: (AAO) x3. Appropriate mood and affect Course Vital Signs Vital signs: Vital Signs Temperature 36.4 C 03/03/23 00:39 Pulse 68 10 00:39 Respiratory Rate 16 03/03/23 00:39 Blood Pressure 109/64 03/03/23 00:39 Pulse Oximetry 97 03/03/23 00:39 Temperature 36.4 C 03/03/23 00:39 Temperature Source Oral 10 00:39 Pulse 68 03/03/23 00:39 Respiratory Rate 16 03/03/23 00:44 Respiratory Effort Normal 03/03/23 00:44 Respiratory Depth Normal 03/03/23 00:44 Respiratory Pattern Normal 03/03/23 00:44 Blood Pressure 109/64 03/03/23 00:39 Pulse Oximetry 97 03/03/23 00:39 Oxygen Delivery Method Room Air 03/03/23 00:39 Oxygen Flow Rate 0 03/03/23 00:39 Pain Level 6 03/03/23 00:39
[2023-03-03] MEDS: Lactated Ringers 1,000 ML 1000 ML IV (00:53)
[2023-03-03 00:54] LABS: Abs Immature Grans 0.06 10^3/uL (0.0-0.06); Absolute Basophil Count 0.04 10^3/uL (0.0-0.2); Absolute Eosinophil Count 0.11 10^3/uL (0.0-0.7); Absolute Lymphocyte Count 1.62 10^3/uL (1.2-3.4); Absolute Monocyte Count 0.83 10^3/uL (0.1-0.8); Absolute Neutrophil Count 3.88 10^3/uL (1.2-6.7); Basophils % 0.6; Eosinophils % 1.7; HCT 44.8 % (40.0-50.0); HGB 15.1 g/dL (13.5-17.5); Immature Grans % 0.9; Lymphocytes % 24.8; MCH 32.3 pg (27.0-33.0); MCHC 33.7 % (32.0-36.0); MCV 96 fL (80-95); MPV 8.9 fL (8.0-11.0); Monocytes % 12.7; Neutrophils % 59.3; Platelet Count 199 10^3/uL (130-400); RBC 4.67 10^6/uL (4.36-5.78); RDW 13.2 % (11.8-14.1); RDW-SD 46.7 fL; WBC 6.54 10^3/uL (4.4-10.8)
[2023-03-03 01:11] LABS: ALT 18 U/L (16-63); AST 17 U/L (15-37); Albumin 3.2 g/dL (3.4-5.0); Alkaline Phosphatase 83 U/L (46-116); Anion Gap 6.7 mmol/L (3-11); BUN 20 mg/dL (7-18); Bilirubin, Total 0.4 mg/dL (0.2-1.0); CO2 23.3 mmol/L (21.0-32.0); CREATININE 1.6 mg/dL (0.70-1.30); Calcium 7.9 mg/dL (8.5-10.1); Chloride 105 mmol/L (98-107); Estimated GFR 50.57 (mL/min/1.73m2); Glucose 95 mg/dL (74-106); Potassium 3.3 mmol/L (3.5-5.1); Sodium 135 mmol/L (136-145); Total Protein 6.4 g/dL (6.4-8.2)
[2023-03-03 01:13] LABS: Magnesium 1.8 mg/dL (1.8-2.4); Troponin I < 50 ng/L (<or=60)
[2023-03-03] MEDS: POTASSIUM CHLORIDE 10 MEQ/100 ML BAG 100 MEQ IVPB (01:35)
[2023-03-03] MEDS: Calcium Gluconate 4.65 MEQ/10 ML VIAL 4.65 MG IVP (01:35)
--- NOTE | 2023-03-03 10:35 | NUR.NOTE ---
Patient called stating that Dr. Marlow office had called more than once to have the note from last night visit be faxed to this office so that he could have his colonoscopy. I tried calling Medical Records, with no answer. I printed the note and faxed it to this office at the patient request. P [phone] F [phone] Nursing Note:
== END 2023-03-03 03:03 | disposition home or self-care (01) ==
LOC: ER 03:04
PROVIDERS: Emergency Provider Student in an Organized Health Care Education/Training Program; PCP Nurse Practitioner Family
DX: R55 Syncope and collapse (principal); E86.0 Dehydration; E87.6 Hypokalemia; E83.51 Hypocalcemia; J44.9 Chronic obstructive pulmonary disease, unspecified; E78.5 Hyperlipidemia, unspecified
CPT/HCPCS: 36415; 80053; 93005; 96365; 96367; 96375; 99283; 83735; 84484; 85025; 93010; J0612; J3480

== ENCOUNTER 2023-03-25 13:27 | Outpatient (REF) | payer BC, SELFPAY ==
[2023-03-25 15:20] LABS: C Diff PCR Negative (Negative)
[2023-03-30 17:27] LABS: Calprotectin <50.0 mcg/g
== END 2023-03-25 13:28 | disposition home or self-care (01) ==
LOC: LBN 13:27
PROVIDERS: PCP Nurse Practitioner Family; Visit Provider Internal Medicine Gastroenterology
DX: K92.2 Gastrointestinal hemorrhage, unspecified (principal); R19.7 Diarrhea, unspecified
CPT/HCPCS: 87493; 83630; 83993; 87177

== ENCOUNTER 2023-03-26 10:57 | Outpatient (REF) | payer BC, SELFPAY | END 2023-03-26 10:58 | disposition home or self-care (01) | LOC: LBN 10:57 | PROVIDERS: PCP Nurse Practitioner Family; Visit Provider Internal Medicine Gastroenterology | DX: R19.7 Diarrhea, unspecified (principal); K92.2 Gastrointestinal hemorrhage, unspecified | CPT/HCPCS: 87177 ==

== ENCOUNTER 2023-04-13 19:21 | Outpatient (REF) | payer BC, SELFPAY ==
[2023-04-23 13:25] LABS: Lactoferrin, Qt, Stool <6.25 mcg/mL (<7.25)
== END 2023-04-13 19:22 | disposition home or self-care (01) ==
LOC: LBN 19:21
PROVIDERS: PCP Nurse Practitioner Family; Visit Provider Internal Medicine Gastroenterology
DX: K92.2 Gastrointestinal hemorrhage, unspecified (principal); R19.7 Diarrhea, unspecified
CPT/HCPCS: 83631

== ENCOUNTER 2023-04-20 02:34 | Outpatient (CLI) | payer BC, SELFPAY ==
[2023-04-20 15:47] LABS: Bilirubin Negative (Negative); Blood Negative (Negative); Clarity Clear (Clear); Glucose Negative (Negative); Ketones Negative (Negative); Leukocyte Esterase Small (Negative); Nitrite Positive (Negative); Specific Gravity 1.025 (1.005-1.025); Urobilinogen 0.2 mg/dL (Up to 0.2); pH 5.5 (5-8)
[2023-04-20 15:56] LABS: ALT 23 U/L (16-63); AST 22 U/L (15-37); Albumin 3.9 g/dL (3.4-5.0); Alkaline Phosphatase 91 U/L (46-116); Anion Gap 9.3 mmol/L (3-11); BUN 21 mg/dL (7-18); Bilirubin, Direct 0.1 mg/dL (0.0-0.2); Bilirubin, Total 0.3 mg/dL (0.2-1.0); CO2 23.7 mmol/L (21.0-32.0); CREATININE 1.6 mg/dL (0.70-1.30); Calcium 8.9 mg/dL (8.5-10.1); Chloride 108 mmol/L (98-107); Estimated GFR 50.26 (mL/min/1.73m2); GGT 18 U/L (15-85); Glucose 107 mg/dL (74-106); Potassium 4.3 mmol/L (3.5-5.1); Sodium 141 mmol/L (136-145); Total Protein 7.6 g/dL (6.4-8.2)
[2023-04-20 16:40] LABS: Bacteria Many HPF (Negative); C & S Indicated? Yes; Crystals Negative HPF (Negative); Epithelial Cells Rare HPF (Negative); Mucus Trace (Negative); RBC 0-2 HPF (0-2); WBC 20-50 HPF (0-5)
== END 2023-04-20 02:35 | disposition home or self-care (01) ==
LOC: LBO 02:35
PROVIDERS: PCP Nurse Practitioner Family; Visit Provider Internal Medicine Gastroenterology
DX: K92.2 Gastrointestinal hemorrhage, unspecified (principal); R19.7 Diarrhea, unspecified
CPT/HCPCS: 36415; 80048; 80076; 87077; 81003; 81015; 82977; 87086; 87186

== ENCOUNTER 2023-06-03 11:37 | Outpatient (CLI) | payer BC, SELFPAY ==
[2023-06-03 11:48] VITALS: BP 130/69; PULSE 68; RESP 20; TEMP 36.8; O2SAT 98
[2023-06-03 12:29] VITALS: PULSE 70; O2SAT 98
[2023-06-03] MEDS: Nerve Block Tray 1 EACH MC (12:37)
[2023-06-03] MEDS: Lidocaine 2% Pres-Free 5 ML VIAL IJ (12:39)
[2023-06-03] MEDS: methylPREDNISolone ACETATE 40 MG/ML VIAL IJ (12:39)
--- NOTE | 2023-06-03 13:19 | PDOC.PAIN_ITS ---
Date of service: 06/03/23 Time of Service: 13:19 US Guided Injections Type of Ultrasound Guided Injection: Middle back Bilateral Rhomboid muscle and Neck Bilateral Trapezius muscle Trigger Point Injection Pre-Procedural Evaluation TTP at these muscles Referral Patient has been referred to the [facility] for Trigger Point Injection for a chief complaint of Bilateral upper back and neck pain Pre-Procedural Pain Score Pre-procedural pain score: 10/10 Reason for Exam Upper back and neck pain Patient Interview Patient was interviewed and medical record reviewed: Yes There were no contraindications to performing an US guided procedure. Risks,expected side effects, potential benefits were reviewed. The patient consent form was signed and witnessed. Standard time out procedure was performed. Patient Safety No skin issues at the area of the injections Procedure Description No sedation given for procedure Patient was placed in the prone position and the following Pulse Ox applied. Pre-Procedure ultrasound scanning performed using a Linear 18 MHz probe Site Preparation Chloroprep Local Anesthesia of Lidocaine 2%. A 21 G 3.5 Pajunk ultrasound needle was placed under live US guidance using an in-plane approach to the target area. After visualization of the needle tip at the target area Depo-Medrol 40mg per cc were used. Total of Injectate/Medication Note: 6 cc Negative aspiration for blood. [place] were removed without difficulty. Ultrasound images were captured and stored. Patient Mental Status Patient was alert during procedure Vital Signs Vital signs were stable throughout the procedure and recorded by nursing. Follow Up/Discharge Follow up plans and appointments were discussed with patient. Post procedure instruction was given as documented in nursing documentation. Discharge criteria met and patient discharged from Pain Management Center: Yes Post Procedure Pain Post Procedure Pain: 3/10 Patient tolerated procedure well Procedure Outcome: Successful Trigger Point Injection 3+muscles Non US Guided Injections Procedure Description Patient was placed in the prone position Post Procedure Pain Post Procedure Pain: 3/10
== END 2023-06-03 11:38 | disposition home or self-care (01) ==
LOC: PC 11:38
PROVIDERS: PCP Nurse Practitioner Family; Visit Provider Preventive Medicine Occupational Medicine
DX: M54.6 Pain in thoracic spine (principal); M54.2 Cervicalgia
CPT/HCPCS: 123; 20553; 76942; 00123; J1030

== ENCOUNTER 2023-08-25 09:43 | Outpatient (REF) | payer BC, SELFPAY ==
[2023-08-25 15:07] LABS: ALT 32 U/L (16-63); AST 22 U/L (15-37); Albumin 4.2 g/dL (3.4-5.0); Alkaline Phosphatase 82 U/L (46-116); Anion Gap 10.3 mmol/L (3-11); BUN 18 mg/dL (7-18); Bilirubin, Total 0.4 mg/dL (0.2-1.0); CO2 24.7 mmol/L (21.0-32.0); CREATININE 1.4 mg/dL (0.70-1.30); Calcium 9.2 mg/dL (8.5-10.1); Calculated LDL 139 mg/dL (<100); Chloride 110 mmol/L (98-107); Cholesterol 216 mg/dL (<200); Estimated GFR 58.99 (mL/min/1.73m2); Glucose 96 mg/dL (74-106); HDL Cholesterol 55 mg/dL (40-60); Sodium 145 mmol/L (136-145); Total Protein 7.5 g/dL (6.4-8.2); Triglyceride 113 mg/dL (<150)
== END 2023-08-25 09:44 | disposition home or self-care (01) ==
LOC: NCHCN 09:43
PROVIDERS: PCP Nurse Practitioner Family; Visit Provider Nurse Practitioner Family
DX: N18.32 Chronic kidney disease, stage 3b (principal); E78.5 Hyperlipidemia, unspecified
CPT/HCPCS: 80053; 80061

== ENCOUNTER 2023-09-27 09:36 | Outpatient (REF) | payer BC, SELFPAY | END 2023-09-27 09:37 | disposition home or self-care (01) | LOC: LBN 09:36 | PROVIDERS: PCP Nurse Practitioner Family; Visit Provider Nurse Practitioner Gerontology | DX: N20.0 Calculus of kidney (principal); Z87.442 Personal history of urinary calculi | CPT/HCPCS: 87077; 87086; 87186 ==

== ENCOUNTER 2024-06-20 15:27 | Outpatient (REF) | payer BC, SELFPAY ==
[2024-06-20 14:39] LABS: Bilirubin Negative (Negative); Blood Negative (Negative); Clarity Clear (Clear); Glucose Negative (Negative); Ketones Negative (Negative); Leukocyte Esterase Negative (Negative); Nitrite Negative (Negative); Specific Gravity 1.015 (1.005-1.025); Urobilinogen 0.2 mg/dL (Up to 0.2); pH 6.5 (5-8)
[2024-06-20 14:53] LABS: Anion Gap 6.6 mmol/L (3-11); BUN 18 mg/dL (7-18); CO2 27.4 mmol/L (21.0-32.0); CREATININE 1.6 mg/dL (0.70-1.30); Calcium 9.1 mg/dL (8.5-10.1); Chloride 107 mmol/L (98-107); Estimated GFR 49.94 (mL/min/1.73m2); Glucose 129 mg/dL (74-106); Potassium 4.3 mmol/L (3.5-5.1); Sodium 141 mmol/L (136-145)
--- OUTSIDE RECORDS SUMMARY | 2024-06-20 16:03 | XMS_ITS | Encounter Summary ---
Author Organization [facility] Address [address] [place] [id number] Care Team Providers Care Innersole Fitter Name Role Phone Unavailable Primary Care Provider Unavailabl e Encounter Details Date Type Department Care Team (Late st Contact Info) Description 10/07/2022 Lab Requisition [facility] Pathology & Laboratory Medicine - [facility] [address] [place] [address] Outr Resulting Lab, Provider Social History Tobacco Use Types Packs/Day Years Used Date Smoking Tobacco: Never Assessed Sex and Gender Information Value Date Recorded Sex Assigned at Not on file Legal Sex Male 19:39 EDT Gender Identity Not on file Sexual Orientation Not on file documented as of this encounter Plan of Treatment Not on file documented as of this encounter Procedures Procedure Name Priority Date/Time Associated Diagnosis Comments PSA TOTAL, DIAGNOSTIC Routine 10/06/2022 9:45 EDT documented in this encounter Results * PSA TOTAL, DIAGNOSTIC (10/06/2022 9:45 EDT) PSA 2.8 <=3.5 ng/mL 10/07/2022 20:34 EDT [facility] Blood VENOUS BLOOD / Unknown 10/06/2022 9:45 EDT 10/07/2022 18:04 EDT Narrative [facility] - 10/07/2022 20:34 EDT NOTE: Serum PSA concentration should not be interpreted as absolute evidence for the presence or absence of malignant disease. Assayed on Siemens ADVIA Centaur XPT using chemiluminescent technology.??Values obtained by using different assay methods cannot be used interchangeably. us Provider Outr Resulting Lab CHEMISTRY & BLOOD GA S ORDERABLES Final Result [facility] [address] [place] [address] documented in this encounter Visit Diagnoses Not on filedocumented in this encounter
--- OUTSIDE RECORDS SUMMARY | 2024-06-20 16:03 | XMS_ITS | Encounter Summary ---
Author Organization [facility] Address [address] [place] [address] Care Team Providers Care Portfolio Administrator Name Role Phone Unavailable Primary Care Provider Unavailabl e Encounter Details Date Type Department Care Team (Late st Contact Info) Description 01/01/2023 Lab Requisition [facility] Pathology & Laboratory Medicine - [address] [address] Outr Resulting Lab, Provider Social History Tobacco [...] Procedure Name Priority Date/Time Associated Diagnosis Comments OVA/PARASITE EXAM Routine 01/01/2023 7:30 EDT documented in this encounter Results * OVA/PARASITE EXAM (01/01/2023 7:30 EDT) Parasite No ova and parasites seen. 01/04/2023 14:10 EDT [facility] Feces SPECIMEN FROM RECTUM / Unknown 01/01/2023 7:30 EDT 01/01/2023 21:27 EDT Narrative [facility] - 01/04/2023 14:10 EDT (If Cryptosporidium, Cyclospora, or Microsporidium are suspected, specific tests must be requested.) Single negative specimen does not rule out the possibility of a parasitic infection. us Provider Outr Resulting Lab MICROBIOLOGY - GENER AL ORDERABLES Final Result [facility] [address] [place] [address] documented in this encounter Visit Diagnoses Not on filedocumented in this encounter
--- OUTSIDE RECORDS SUMMARY | 2024-06-20 16:03 | XMS_ITS | Encounter Summary ---
Author Organization [facility] Address [facility] [place] [address] Care Team Providers Care Boiler House Inspector Name Role Phone Angel Luis Batista MD Primary Care Provider [phone] Encounter Details Date Type Department Care Team (Late st Contact Info) Description 11/11/2021 8:50 PM EDT Ancillary Procedure Radiology Library at [facility] [place] [id number] Angel Luis Batista MD [address] [place], [place] [address] Social History Tobacco Use Types Packs/Day Years Used Date Smoking Tobacco: Former Cigarettes Q uit: 06/26/2020 Cigars Smokeless Tobacco: Never Comments:mini cigars Alcohol Use Standard Drinks/Week Comments Yes 2 (1 standard drink = 0.6 oz pur e alcohol) Sex and Gender Information Value Date Recorded Sex Assigned at Not on file Gender Identity Not on file Sexual Orientation Not on file documented as of this encounter Plan of Treatment Not on file documented as of this encounter Procedures Procedure Name Priority Date/Time Associated Diagnosis Comments FILM LIBRARY STORAGE ONLY MR SPINE Routine 11/11/2021 8:46 PM EDT documented in this encounter Results * Film Library- Storage Only MR Spine (11/11/2021 8:46 PM EDT) Narrative [facility] - 11/11/2021 8:46 PM EDT This exam is auto-finalizing. It's purpose is for storage only. Angel Luis Batista MD IMG FILM LIBRARY ORD ERABLES [place], [place] documented in this encounter Visit Diagnoses Not on filedocumented in this encounter Care Teams Boiler House Inspector Relationship Specialty Start Date End Date Angel Luis Batista MD [address] [place] [address] PCP - General 04/08/10 11/18/21 documented as of this encounter
--- OUTSIDE RECORDS SUMMARY | 2024-06-20 16:03 | XMS_ITS | Encounter Summary ---
Author Organization [facility] Address [address] [place] [address] Care Team Providers Care Cardiovascular Surgeon Name Role Phone Unavailable Primary Care Provider Unavailabl e Encounter Details Date Type Department Care Team (Late st Contact Info) Description 08/05/2022 Lab Requisition [facility] Pathology & Laboratory Medicine - [facility] [address] [place] [address] Outr Resulting Lab, Provider Social History Tobacco [...] Procedure Name Priority Date/Time Associated Diagnosis Comments FECAL BACTERIAL PATHOGENS BY PCR Routine 08/05/2022 7:28 EDT OVA/PARASITE EXAM Routine 08/05/2022 7:28 EDT documented in this encounter Results * FECAL BACTERIAL PATHOGENS BY PCR (08/05/2022 7:28 EDT) Salmonella PCR Negative Negative 08/05/2022 22:34 EDT [facility] Shigella/Enteroin vasive E. coli Negative Negative 08/05/2022 22:34 EDT [facility] HN LAB CAMPYLOBACTER PCR Negative Negative 08/05/2022 22:34 EDT [facility] Shiga Toxin PCR Negative Negative 22:34 EDT [facility] Feces SPECIMEN FROM RECTUM / Unknown 08/05/2022 7:28 EDT 08/05/2022 18:45 EDT us Provider Outr Resulting Lab MICROBIOLOGY - GENER AL ORDERABLES Final Result Performing Organization Address [facility] Co de Phone Number [facility] [address] [place] [address] * OVA/PARASITE EXAM (08/05/2022 7:28 EDT) Parasite No ova and parasites seen. 08/06/2022 13:55 EDT [facility] Feces SPECIMEN FROM RECTUM / Unknown 08/05/2022 7:28 EDT 08/05/2022 18:46 EDT Narrative [facility] - 08/06/2022 13:55 EDT (If Cryptosporidium, Cyclospora, or Microsporidium are suspected, specific tests must be requested.) Single negative specimen does not rule out the possibility of a parasitic infection. us Provider Outr Resulting Lab MICROBIOLOGY - GENER AL ORDERABLES Final Result Performing Organization Address [facility] Co de Phone Number [facility] [address] [place] [address] documented in this encounter Visit Diagnoses Not on filedocumented in this encounter
--- OUTSIDE RECORDS SUMMARY | 2024-06-20 16:03 | XMS_ITS | Encounter Summary ---
Author Organization Formerly [facility] Address [facility] [place] [address] Care Team Providers Care Skiver Hand Name Role Phone Angel Luis Batista MD Primary Care Provider [phone] Encounter Details Date Type Department Care Team (Late st Contact Info) Description 11/11/2021 8:55 PM EDT Ancillary Procedure Radiology Library at [facility] CASSIE Gutiérrez [phone] Angel Luis Batista MD [address] [place], [place] [address] Social History Tobacco Use Types Packs/Day Years [...] Diagnosis Comments FILM LIBRARY STORAGE ONLY MR SHOULDER Routine 11/11/2021 8:48 PM EDT documented in this encounter Results * Film Library- Storage Only MR Shoulder (11/11/2021 8:48 PM EDT) Narrative CLAYTON MCCORD - 11/11/2021 8:48 PM EDT This exam is auto-finalizing. It's purpose is for storage only. Angel Luis Batista MD IMG FILM LIBRARY ORD ERABLES [place], [place] documented in this encounter Visit Diagnoses Not on filedocumented in this encounter Care Teams Skiver Hand Relationship Specialty Start Date End Date Angel Luis Batista MD [address] [place] [address] PCP - General 04/08/10 11/18/21 documented as of this encounter
--- OUTSIDE RECORDS SUMMARY | 2024-06-20 16:03 | XMS_ITS | Encounter Summary ---
Author Organization [facility] Address [address] [place] [address] Care Team Providers Care Bookmobile Driver Name Role Phone Unavailable Primary Care Provider Unavailabl e Encounter Details Date Type Department Care Team (Late st Contact Info) Description 05/31/2020 Lab Requisition [facility] Pathology & Laboratory Medicine - [facility] [address] [place] [address] Outr Resulting Lab, Provider Social History Tobacco [...] Procedure Name Priority Date/Time Associated Diagnosis Comments DO NOT ORDER STANDALONE - BROAD COVID TEST Today 05/31/2020 8:55 EST COVID-19 TESTING Routine 05/31/2020 8:55 EST documented in this encounter Results * DO NOT ORDER STANDALONE - BROAD COVID TEST (05/31/2020 8:55 EST) COVID-19 rt-PCR Result NEGATIVE Negative 06/01/2020 15:27 EST [facility] Comment: 2019-novel Coronavirus (2019-nCoV) not detected by the qRT-PCR assay. Consider testing for other respiratory viruses or re-collecting for 2019-nCoV testing. Note: Optimum timing for peak viral levels during infections caused by 2019-nCoV have not been determined. Collection of multiple specimens from the same patient may be necessary to detect the virus. Limitations Positive results are indicative of active infection with SARS-CoV-2 but do not rule out bacterial infection or co-infection with other viruses. The agent detected may not be the definite cause of disease. In addition, detection of viral RNA may not indicate the presence of infectious virus or that SARS-CoV-2 is the causative agent for clinical symptoms. Negative results do not preclude SARS-CoV-2 infection and should not be used as the sole basis for patient management decisions. Negative results must be combined with clinical observations, patient history, and epidemiological information. False negative results may also occur if amplification inhibitors are present in the specimen or if inadequate numbers of organisms are present in the specimen. Optimum specimen types and timing for peak viral levels during infections caused by SARS-CoV-2 have not been fully determined. Collection of multiple specimens (types and time points) from the same patient may be necessary to detect the virus. The test was validated for use with upper respiratory specimens obtained via nasopharyngeal or oropharyngeal swabs in VTM, UTM, M4, M5, M6, saline, and MTM media. The performance of this test has not been established for other specimens. Specimens collected using other FDA recommended Specimen Collection Materials listed in the FDA COVID-19 [employer] communication (August 10, 2019) are processed with the caveat that they were not all validated for use with this test and the result must be interpreted in this context. Furthermore, a false negative results may occur if a specimen is improperly collected, transported or handled. If the virus mutates in the RT-PCR target region, SARS-CoV-2 may not be detected or may be detected less predictably. Inhibitors or other types of interference may produce a false negative result. An interference study evaluating the effect of common cold medications was not performed. This test is not FDA-cleared but its performance characteristics were established by our CLIA-certified, CAP-accredited, high complexity laboratory in accordance with CLIA regulations, College of Stateless Pathologists (CAP) guidelines (Aug 03, 2019), and FDA guidance (Jul 15, 2019). This test is only for use under the Food and Drug Administration's Emergency Use Authorization. Swab ENTIRE NASOPHARYNX / Unknown 05/31/2020 8:55 EST 05/31/2020 15:56 EST us Provider Outr Resulting Lab MICROBIOLOGY - GENER AL ORDERABLES Final Result [facility] [place], [place] * COVID-19 TESTING (05/31/2020 8:55 EST) Pathologist [facility] COVID-19 rt-PCR Result NEGATIVE Negative 06/01/2020 16:43 EST [facility] Comment: 2019-novel Coronavirus (2019-nCoV) not detected by the qRT-PCR assay. Consider testing for other respiratory viruses or re-collecting for 2019-nCoV testing. Note: Optimum timing for peak viral levels during infections caused by 2019-nCoV have not been determined. Collection of multiple specimens from the same patient may be necessary to detect the virus. Limitations Positive results are indicative of active infection with SARS-CoV-2 but do not rule out bacterial infection or co-infection with other viruses. The agent detected may not be the definite cause of disease. In addition, detection of viral RNA may not indicate the presence of infectious virus or that SARS-CoV-2 is the causative agent for clinical symptoms. Negative results do not preclude SARS-CoV-2 infection and should not be used as the sole basis for patient management decisions. Negative results must be combined with clinical observations, patient history, and epidemiological information. False negative results may also occur if amplification inhibitors are present in the specimen or if inadequate numbers of organisms are present in the specimen. Optimum specimen types and timing for peak viral levels during infections caused by SARS-CoV-2 have not been fully determined. Collection of multiple specimens (types and time points) from the same patient may be necessary to detect the virus. The test was validated for use with upper respiratory specimens obtained via nasopharyngeal or oropharyngeal swabs in VTM, UTM, M4, M5, M6, saline, and MTM media. The performance of this test has not been established for other specimens. Specimens collected using other FDA recommended Specimen Collection Materials listed in the FDA COVID-19 [employer] communication (August 10, 2019) are processed with the caveat that they were not all validated for use with this test and the result must be interpreted in this context. Furthermore, a false negative results may occur if a specimen is improperly collected, transported or handled. If the virus mutates in the RT-PCR target region, SARS-CoV-2 may not be detected or may be detected less predictably. Inhibitors or other types of interference may produce a false negative result. An interference study evaluating the effect of common cold medications was not performed. This test is not FDA-cleared but its performance characteristics were established by our CLIA-certified, CAP-accredited, high complexity laboratory in accordance with CLIA regulations, College of Stateless Pathologists (CAP) guidelines (Aug 03, 2019), and FDA guidance (Jul 15, 2019). This test is only for use under the Food and Drug Administration's Emergency Use Authorization. Performing Lab [facility] [place] 06/01/2020 16:43 EST [facility] Swab 05/31/2020 8:55 EST 05/31/2020 15:56 EST us Provider Outr Resulting Lab MICROBIOLOGY - GENER AL ORDERABLES Final Result [facility] [address] [place], [place] [id number] [place] [address] LABORATORY [place], [place] documented in this encounter Visit Diagnoses Not on filedocumented in this encounter
--- OUTSIDE RECORDS SUMMARY | 2024-06-20 16:03 | XMS_ITS | Clinical Summary ---
Author Organization [facility] Address [facility] [place] [address] Care Team Providers Care Retail Stocker Name Role Phone Mari Hill CIERRA Primary Care Provider [phone] Allergies Active Allergy Reactions Criticality Noted Date Comments Canine Protein Containing Products CIS - Hives Medications Medication Sig Dispensed Refills Start Date End Date Status multivitamin (THERAGRAN) tablet 10/02/2005 Active acetaminophen (TYLENOL EXTRA STRENGTH) 500 mg tablet 10/02/2005 Active PROAIR HFA 90 mcg/actuation HFA Aerosol Inhaler inhale 2 puffs by mouth four times a day if needed 0 03/19/2017 Active busPIRone (BUSPAR) 15 mg Tablet Take 15 mg by mouth 3 times daily. 0 07/27/2017 Active diclofenac (SOLARAZE) 3 % Gel daily. 0 06/02/2017 Active DULoxetine (CYMBALTA) 60 mg Capsule, Delayed Release(E.C.) take 1 capsule by mouth once daily 0 07/19/2017 Active lisinopril (PRINIVIL;ZESTRIL ) 10 mg Tablet take 1 tablet by mouth once daily 0 07/16/2017 Active gabapentin (NEURONTIN) 100 mg Capsule Take 1 capsule by mouth 3 times daily. (follow instructions on the sheet given in the Pain Clinic) 180 capsule 12 08/31/2017 Active acetaminophen-cod eine (Tylenol-Codeine #3) 300-30 mg Tablet Tylenol-Codeine #3 300 mg-30 mg tablet Take 1 tablet by oral route at bedtime. Active Desoximetasone (Topicort) 0.05 % Gel Topicort 0.05 % topical gel APPLY A THIN LAYER TO THE AFFECTED AREA(S) BY TOPICAL ROUTE 2 TIMES PER DAY ; RUB IN GENTLY AND COMPLETELY Active fluticasone propionate (Flovent HFA) 110 mcg/actuation HFA Aerosol Inhaler Every 12 hours. Acti ve HYDROcodone-aceta minophen (VICODIN) 5-300 mg Tablet TAKE ONE TABLET BY MOUTH EVERY 8 HOURS NEEDED 02/15/2020 Active lidocaine (Lidoderm) 5% Adhesive Patch, Medicated APPLY ONE PATCH TOPICALLY TO MOST PAINFUL AREA FOR UP TO 12 HOURS THEN REMOVE FOR 12 HOURS PATCH FREE 02/15/2020 Active oxyCODONE (ROXICODONE) 10 mg Tablet TAKE 1 TABLET BY MOUTH THREE TIMES DAILY NEEDED FOR PAIN 06/25/2020 Active propranoloL (Inderal) 40 mg Tablet TAKE 1 TABLET BY MOUTH TWICE A DAY 06/17/2020 Active Incruse Ellipta 62.5 mcg/actuation Disk with Device INHALE 1 PUFF BY MOUTH DAILY 06/28/2020 Active cyclobenzaprine (Flexeril) 10 mg Tablet Take 1 tablet by mouth 3 times daily as needed for Muscle spasms. 15 tablet 07/15/2020 Active Active Problems Problem Noted Date Diagnosed Date Cervical spondylosis 07/15/2020 Spondylolisthesis at L5-S1 level 09/13/2017 Microscopic hematuria Alopecia totalis Sleep apnea with use of cont inuous positive airway pressure (CPAP) Depression Asthma Family History Medical History Relation Comments Arthritis Mother Hypertension Mother Alcohol Use Disorder Neg Hx Substance Use Disorder Neg Hx Relation Status Comments Father Alive Mother Alive Social History Tobacco Use Types Packs/Day Years Used Date Smoking Tobacco: Former Cigarettes Q uit: 06/26/2020 Cigars Smokeless Tobacco: Never Comments:mini cigars Alcohol Use Standard Drinks/Week Comments Yes 2 (1 standard drink = 0.6 oz pur e alcohol) Sex and Gender Information Value Date Recorded Sex Assigned at Not on file Gender Identity Not on file Sexual Orientation Not on file Last Filed Vital Signs Vital Sign Reading Time Taken Comments Blood Pressure 127/90 07/15/2020 1:27 PM EST Pulse 67 07/15/2020 12:20 PM EST Temperature 36.6 ??C (97.9 ??F) 07/15/2020 1:27 PM ES T Respiratory Rate 16 07/15/2020 1:27 PM EST Oxygen Saturation 95% 07/15/2020 1:27 PM EST Inhaled Oxygen Concentration - - Weight 104.3 kg (230 lb) 07/15/2020 6:40 AM EST Height 172.7 cm (5' 8) 07/15/2020 6:40 AM EST Body Mass Index 34.97 07/15/2020 6:40 AM EST Plan of Treatment Health Maintenance Due Date Last Done Comments CT Colonography 1967 Colonoscopy 1967 Colorectal Cancer Screening 1967 FIT DNA 1967 FIT 1967 Sigmoidoscopy (10 year) with FIT yearly 1967 Sigmoidoscopy 1967 HIV screen 1985 Hepatitis C Screening 1985 Lipid Screening 1985 Hepatitis B vaccine (0-59 yrs) (1) 1986 Pneumoccocal Vaccine: 50+ (1 of 2 - PCV) 1986 Tetanus/Diphtheria/Pertussis Vaccines (1 - Tdap) 03/24 Zoster vaccine (1 of 2) 2017 Advance Directive 2022 Covid-19 Vaccine (1 - 2023-25 season) 2024 Influenza (Flu) vaccine (1 o f 1 - Influenza standard series) 01/16/2024 Medical Devices Implanted Type Area Business Communications Instructor Device Identifier Shelf Expiration Date Model / Serial / Lot Graft Bone Filler 1cc Dbm Syringe Putty Vesuvius ([id number]) (Autoreq) - [id number] Implanted:Qty : 1 on 07/15/2020 by Gladis Alvarado MD at [facility] IMPLANTS Spine Cervical [employer] 10/14/2021 [id number] [id number] / [id number] / [id number] Cage 3 Screw Spinal [id number] Sa Ti ([id number]) (Autoreq) - [id number] Implanted:Qty : 2 on 07/15/2020 by Gladis Alvarado MD at [facility] IMPLANTS Spine Cervical [employer] [id number] / / Screw Spinal 3.5x14mm Anterior Cervical St Sld Ti ([id number]) (Autoreq) - [id number] Implanted:Qty : 5 on 07/15/2020 by Gladis Alvarado MD at [facility] IMPLANTS Spine Cervical [employer] [id number] / / Screw Spinal 3.93u12ea Anterior Cervical St Sld Ti ([id number]) (Autoreq) - [id number] Implanted:Qty : 1 on 07/15/2020 by Gladis Alvarado MD at [facility] IMPLANTS Spine Cerv[employer] [id number] / / Explanted Type Area Business Communications Instructor Device Identifier Shelf Expiration Date Model / Serial / Lot Pin Distraction 14mm Ant Cerv Fusn Ti ([id number]) - [id number] Explanted:Qty: 1 on 07/15/2020 by Gladis Alvarado MD at [facility] IMPLANTS Spine Cervical [facility] MEDICAL DP-14-TY / / NA Pin Distraction 14mm Ant Cerv Fusn Ti ([id number]) - [id number] Explanted:Qty: 1 on 07/15/2020 by Gladis Alvarado MD at [facility] IMPLANTS Spine Cervical [facility]ICAL [facility] - MEDICAL DP-14-TY / NA / Advance Directives * Attempt Cardiopulmonary Resuscitation - Inpatient (Latest Code Status on File) Date Activated Date Inactivated Comments 07/15/2020 2:46 PM 07/15/2020 5:22 PM Question Answer Comments Code Status decision made by: Patient * Full Code Date Activated Date Inactivated Comments 07/15/2020 2:35 PM 07/15/2020 2:46 PM Question Answer Comments Does patient have capacity to make decision: Yes * Attempt Cardiopulmonary Resuscitation - Inpatient Date Activated Date Inactivated Comments 07/15/2020 7:07 AM 07/15/2020 2:35 PM Question Answer Comments Code Status decision made by: Patient Care Teams Retail Stocker Relationship Specialty Start Date End Date Mari Hill APRN [address] [place] [address] PCP - General Family Medicine 11/19/21
--- OUTSIDE RECORDS SUMMARY | 2024-06-20 16:03 | XMS_ITS | Encounter Summary ---
Author Organization [facility] Address [address] [place] [address] Care Team Providers Care Nurse Extern Name Role Phone Unavailable Primary Care Provider Unavailabl e Encounter Details Date Type Department Care Team (Late st Contact Info) Description 12/31/2022 Lab Requisition [facility] Pathology & Laboratory Medicine - [facility] [address] [place] [address] Outr Resulting Lab, Provider Social History Tobacco [...] Procedure Name Priority Date/Time Associated Diagnosis Comments GIARDIA AND CRYPTOSPORIDIUM ANTIGENS Routine 12/31/2022 10:00 EDT OVA/PARASITE EXAM Routine 12/31/2022 10: 00 EDT documented in this encounter Results * GIARDIA AND CRYPTOSPORIDIUM ANTIGENS (12/31/2022 10:00 EDT) Giardia and Cryptosporidium Cryptosporidium Antigen Neg and Giardia Antigen Neg Cryptosporidium Antigen Neg and Giardia Antigen Neg 11:08 EDT [facility] Feces SPECIMEN FROM RECTUM / Unknown 12/31/2022 10:00 EDT 12/31/2022 22:21 EDT us Provider Outr Resulting Lab MICROBIOLOGY - GENER AL ORDERABLES Final Result [facility] [address] [place] [address] * OVA/PARASITE EXAM (12/31/2022 10:00 EDT) Parasite No ova and parasites seen. 01/01/2023 11:34 EDT [facility] Feces SPECIMEN FROM RECTUM / Unknown 12/31/2022 10:00 EDT 12/31/2022 22:21 EDT Narrative [facility] - 01/01/2023 11:34 EDT (If Cryptosporidium, Cyclospora, or Microsporidium are suspected, specific tests must be requested.) Single negative specimen does not rule out the possibility of a parasitic infection. us Provider Outr Resulting Lab MICROBIOLOGY - GENER AL ORDERABLES Final Result [facility] [address] [place] [address] documented in this encounter Visit Diagnoses Not on filedocumented in this encounter
--- OUTSIDE RECORDS SUMMARY | 2024-06-20 16:03 | XMS_ITS | Encounter Summary ---
Author Organization [facility] Address [address] [place] [address] Care Team Providers Care Manager Critical Care Unit Name Role Phone Unavailable Primary Care Provider Unavailabl e Encounter Details Date Type Department Care Team (Late st Contact Info) Description 01/13/2023 Lab Requisition [facility] Pathology & Laboratory Medicine - [address] [address] Outr Resulting Lab, Provider Social History Tobacco [...] Procedure Name Priority Date/Time Associated Diagnosis Comments HOLD LAVENDER TOP Today 01/13/2023 10: 47 EDT PARASITE EXAM, BLOOD Today 01/13/2023 10:47 EDT documented in this encounter Results * HOLD LAVENDER TOP (01/13/2023 10:47 EDT) Hold Hold 01/13/2023 18:02 EDT [facility] Blood VENOUS BLOOD / Unknown 01/13/2023 10:47 EDT 01/13/2023 16:55 EDT us Provider Outr Resulting Lab LAB INFO SERVICE AND SUPPORT & PHONE RESULT Final Result [facility] [address] [place] [address] * PARASITE EXAM, BLOOD (01/13/2023 10:47 EDT) [employer] Malaria Antigen Presumptive negative for malaria antigens, see the parasite identification result for confirmation by thin/thick smear microscopy. Presumptive negative for malaria antigens, see the parasite identification result for confirmation by thin/thick smear microscopy. 3 14:57 EDT [facility] Parasite Identification No blood parasite seen. Single negative specimen does not rule out parasitic infection. No blood parasite seen, No organism seen. PCR is the most sensitive method for Anaplasmosis or Ehrlichiosis 3 14:57 EDT [facility] Blood VENOUS BLOOD / Unknown 01/13/2023 10:47 EDT 01/13/2023 16:52 EDT us Provider Outr Resulting Lab MICROBIOLOGY - GENER AL ORDERABLES Final Result [facility] [address] [place] [address] documented in this encounter Visit Diagnoses Not on filedocumented in this encounter
--- OUTSIDE RECORDS SUMMARY | 2024-06-20 16:03 | XMS_ITS | Referral Summary ---
Author Organization [facility] Address [address] [place] [address] Care Team Providers Care Thread Singer Name Role Phone Unavailable Primary Care Provider Unavailabl e Social History Tobacco Use Types Packs/Day Years Used Date Smoking Tobacco: Never Assessed Sex and Gender Information Value Date Recorded Sex Assigned at Not on file Legal Sex Male 19:39 EDT Gender Identity Not on file Sexual Orientation Not on file Plan of Treatment Not on file
--- OUTSIDE RECORDS SUMMARY | 2024-06-20 16:03 | XMS_ITS | Encounter Summary ---
Author Organization [facility] Address [address] [place] [address] Care Team Providers Care Sail Lay Out Worker Name Role Phone Unavailable Primary Care Provider Unavailabl e Encounter Details Date Type Department Care Team (Late st Contact Info) Description 03/26/2023 Lab Requisition [facility] Pathology & Laboratory Medicine - [facility] [address] [place] [address] Outr Resulting Lab, Provider Social History Tobacco [...] Date/Time Associated Diagnosis Comments OVA/PARASITE EXAM Routine 03/26/2023 10: 15 EST documented in this encounter Results * OVA/PARASITE EXAM (03/26/2023 10:15 EST) Parasite No ova and parasites seen. 03/30/2023 13:44 EST [facility] Feces SPECIMEN FROM RECTUM / Unknown 03/26/2023 10:15 EST 03/26/2023 22:05 EST Narrative [facility] - 03/30/2023 13:44 EST (If Cryptosporidium, Cyclospora, or Microsporidium are suspected, specific tests must be requested.) Single negative specimen does not rule out the possibility of a parasitic infection. us Provider Outr Resulting Lab MICROBIOLOGY - GENER AL ORDERABLES Final Result [facility] [address] [place] [address] documented in this encounter Visit Diagnoses Not on filedocumented in this encounter
--- OUTSIDE RECORDS SUMMARY | 2024-06-20 16:03 | XMS_ITS | Encounter Summary ---
Author Organization [facility] Address [address] [place] [address] Care Team Providers Care Steward/Stewardess Banquet Name Role Phone Unavailable Primary Care Provider Unavailabl e Encounter Details Date Type Department Care Team (Late st Contact Info) Description 12/25/2020 Lab Requisition [facility] Pathology & Laboratory Medicine - [address] [address] Outr Resulting Lab, Provider Social History Tobacco [...] Comments FECAL BACTERIAL PATHOGENS BY PCR Routine 12/24/2020 11:35 EDT documented in this encounter Results * FECAL BACTERIAL PATHOGENS BY PCR (12/24/2020 11:35 EDT) Salmonella PCR Negative Negative 12/25/2020 22:59 EDT [facility] Shigella/Enteroin vasive E. coli Negative Negative 12/25/2020 22:59 EDT [facility] HN LAB CAMPYLOBACTER PCR Negative Negative 12/25/2020 22:59 EDT [facility] Shiga Toxin PCR Negative Negative 22:59 EDT [facility] Feces SPECIMEN FROM RECTUM / Unknown 12/24/2020 11:35 EDT 12/25/2020 16:22 EDT us Provider Outr Resulting Lab MICROBIOLOGY - GENER AL ORDERABLES Final Result [facility] [address] [place] [address] documented in this encounter Visit Diagnoses Not on filedocumented in this encounter
--- OUTSIDE RECORDS SUMMARY | 2024-06-20 16:03 | XMS_ITS | Encounter Summary ---
Author Organization [facility] [place] [address] Care Team Providers Care Communications Billing Analyst Name Role Phone Mari Hill APRN Primary Care Provider [phone] Reason for Referral * Consultation (Routine) - Closed Specialty Diagnoses / Procedures Referred By Flip rubin Referred To Contact Dermatology Diagnoses Skin lesion Mari Hill APRN [address] [place] [address] [facility] Dermatology [address] [place] [address] Referral ID Status Reason Start Date Expiration Date V isits Requested Visits Authorized [id number] Closed Consult, Test & Treat PCP Updated and/or Approved 11/19/2021 11/19/2022 6 6 Encounter Details Date Type Department Care Team (Late st Contact Info) Description 11/19/2021 Transcribe Orders eDH Incoming Referrals [phone] Mari Hill APRN [address] [place], [place] [id number] Skin lesion Social History Tobacco Use Types Packs/Day Years [...] as of this encounter Plan of Treatment Scheduled Referrals Name Type Priority Associated Diagnoses Order Schedule Referral to Dermatology Outpatient Referral Routine Skin lesion Ordered: 11/19/2021 documented as of this encounter Visit Diagnoses Diagnosis Skin lesion Unspecified disorder of skin and subcutaneous tissue documented in this encounter Care Teams Communications Billing Analyst Relationship Specialty Start Date End Date Mari Hill APRN [address] [place] [address] PCP - General Family Medicine 11/19/21 documented as of this encounter
--- OUTSIDE RECORDS SUMMARY | 2024-06-20 16:03 | XMS_ITS | Encounter Summary ---
Author Organization [facility] Address [facility] [place] [address] Care Team Providers Care Livestock Producer Name Role Phone Mari Hill APRN Primary Care Provider [phone] Reason for Visit * Reason Comments Skin Lesion * Consultation (Routine) - Closed Specialty Diagnoses / Procedures Referred By Flip rubin Referred To Contact Dermatology Diagnoses Skin lesion Mari Hill APRN [address] [place] [address] [facility] [address] [place] [address] Referral ID Status Reason Start Date Expiration Date V isits Requested Visits Authorized [id number] Closed Consult, Test & Treat PCP Updated and/or Approved 11/19/2021 11/19/2022 6 6 Encounter Details Date Type Department Care Team (Late st Contact Info) Description 02/25/2022 10:30 AM EDT Office Visit Dermatology at [facility] [address] [place] [id number] Alice Hicks MD [facility] [place] [address] Pilar cyst of scalp Social History Tobacco Use Types Packs/Day Years [...] on file documented as of this encounter Progress Notes * Alice Hicks MD - 02/25/2022 10:30 AM EDT Images from the original note were not included. DEPARTMENT OF DERMATOLOGY Medical Dermatology Clinic Provider: ALICE HICKS MD Patient's preferred name Baron Preferred contact method for results [x]Phone: Cell []myD-H []Letter Detailed phone message OK? Yes Are there any other people with whom we may discuss your care? Significant Other, Melina Agee Past Medical History Date, location, treatment Melanoma No Dysplastic nevi No SCC No BCC No AKs No UV Exposure & Protection + Eczema + Seasonal Allergies + Asthma + HTN + Depression Family History Details Melanoma No NMSC No Other relevant family history + Eczema + Breast Cancer + Pancreatic Cancer Social History Hobbies: Hunting, fishing, and boating Other: Baron has two children. Pre-Procedure Screening Details Allergy to lidocaine, epinephrine, Dermabond, chlorhexidine, or adhesives No Bleeding disorder or blood thinners No Pacemaker, defibrillator, deep brain stimulator, cochlear implant No History of Present Illness: Kyree Mann is a 56 y.o. Patient is referred to the clinic at the request of Mari Hill for evaluation of a raised, flesh-colored lesion on the left parietalscalp, onset five months ago. Baron denies associated tenderness and states that after its initial growth it has stabilized in size. Review of Systems: General: Feeling well. Skin: No other skin concerns. Medications: Reviewed in eD-H Allergies: Reviewed in eD-H Skin Examination: Focused skin examination of the left parietal was normal with the exception of the findings below. Assessment/Plan 1. Favor Pilar Cyst - Firm, 0.7cm x 1cm mobile, firm papule on the left parietal scalp. - Given bothersome nature, patient opts to proceed with excision. Dermatologic Surgery Operative Report (Procedure: Excisional biopsy) STAFF SURGEON: Alice Hicks MD ASSISTANTS: [x] Charles Lewis MD [x] PRO Villasenor Preoperative Diagnosis: Pilar cyst Postoperative Diagnosis: Pending Pathology: Submitted for permanent pathology. Pending. Lesion Site (location): Left parietal scalp Total local anesthesia 1% lidocaine with 1:100,000 epi used: 1 cc INDICATION Diagnosis and direction of management PROCEDURE Excisional biopsy Prior to the procedure, final verification of the patient identity and correct marked surgical sitewas performed. Timeout was performed. PREOPERATIVE MEDICATION: [x] None Anesthesia used was 1% lidocaine with 1:100,000 epinephrine. The skin was prepped in a sterile fashion with with 2% chlorhexidine. The lesion was delineated with palpation and visualization and excised for biopsy down to subcutaneous fat in a circular fashion through skin and through the subcutaneous tissue. Due to wound size, the wound edges were temporarily guided closed with 3-0 monocryl subcutaneous sutures and no skin sutures (not a repair, but for patient comfort). Estimated blood loss: Minimal. Complications: None. Wound care: Routine. Specimen sent to Dermatopathology. Biopsy report is pending. Follow up is pending on the results of this pathology report. POST-OPERATIVE MEDICATIONS: [x] NONE Figure 1 Photo taken and charted with patient's verbal consent. Other: ??? N/A RTC: Pending pathology []Note routed to admin secretary []Recall placed in scheduling system []Appointment scheduled at checkout Scribe attestation: PRO Villasenor has performed the documentation for this encounter in the presence of and acting as a scribe for ALICE HICKS MD. I performed the above scribed service and agree with the accuracy of the documentation in this encounter. Reviewed and signed by: ALICE HICKS MD Dermatology [facility] documented in this encounter Plan of Treatment Not on file documented as of this encounter Procedures Procedure Name Priority Date/Time Associated Diagnosis Comments SPECIMEN TO PATHOLOGY Routine 02/25/2022 12:25 PM EDT Pilar cyst of scalp SURGICAL PATHOLOGY REPORT Routine 02/25/2022 11:47 AM EDT documented in this encounter Results * Specimen to Pathology (02/25/2022 12:25 PM EDT) AP Specimen 02/25/2022 12:2 5 PM EDT 02/25/2022 12:25 PM EDT [facility] - 02/25/2022 12:25 PM EDT Specimen requisition ordered. ??Separate Pathology report to follow Alice Hicks MD PATHOLOGY/CYTOLOGY [facility] [place] [address] * Surgical Pathology Report (02/25/2022 11:47 AM EDT) Final Diagnosis [id number] ? Location: [facility] The signing pathologist has (i) examined the relevant preparation(s) for the specimen(s) and (ii) rendered or confirmed the diagnosis(es). . ?Surgical Pathology DIAGNOSIS L eft parietal scalp, skin excision: - ??Epidermal inclusion cyst Electronically signed by: ?Luz GARSIA, Maya Verified: ??03/05/2022 16:33 ??Dermatopatholo gist Performed at: ??-[facility] Dept. of Pathology, [place], [place] SPECIMEN(S) SUBMITTED A - Left parietal scalp, excision (1) CLINICAL INFORMATION Firm, 0.7 cm x 1.0 cm mobile, firm papule in the left parietal scalp. DDX: Pilar cyst SPECIMEN PROCESSING A - Labeled/Fixative : L parietal scalp, formalin. Quantity/Size: ??Single, 1.3 x 0.4 x 0.4 cm. Tissue Description: Nonoriented bloom elliptical skin excision. Within the subcutaneous tissue with a partially ruptured cyst exuding amorphous douglas-white debris On sectioning the cyst is 0.4 cm diameter Sections/Process ing: Inked and entirely submitted in 2 cassettes as follows: ?A1: ??tips ?A2: ??Subcutaneous cyst ??shb 03/05/2022 4:[address] [facility] SPECIMEN FROM SKIN / Unknown 02/25/2022 11:47 AM EDT 02/25/2022 11:47 AM EDT Alice Hicks MD PATHOLOGY/CYTOLOGY O [facility] [place] [address] documented in this encounter Visit Diagnoses Diagnosis Pilar cyst of scalp documented in this encounter Care Teams Livestock Producer Relationship Specialty Start Date End Date Mari Hill, DIRECTOR OF STRATEGIC ALLIANCES [address] [place] [address] PCP - General Family Medicine 11/19/21 documented as of this encounter
--- OUTSIDE RECORDS SUMMARY | 2024-06-20 16:03 | XMS_ITS | Clinical Summary ---
Author Organization [facility] Address [address] [place] [address] Care Team Providers Care Minesweeping Officer Name Role Phone Unavailable Primary Care Provider Unavailabl e Social History Tobacco Use Types Packs/Day Years Used Date Smoking Tobacco: Never Assessed Sex and Gender Information Value Date Recorded Sex Assigned at Not on file Legal Sex Male 19:39 EDT Gender Identity Not on file Sexual Orientation Not on file Plan of Treatment Health Maintenance Due Date Last Done Comments Hepatitis C Screen 1965 Hepatitis B Vaccine (1 of 3 - 19+ 3-dose series) 03/24 COVID-19 Vaccine (2023- season) 2024
--- OUTSIDE RECORDS SUMMARY | 2024-06-20 16:03 | XMS_ITS | Encounter Summary ---
Author Organization [facility] Address [address] [place] [address] Care Team Providers Care Public Finance Specialist Name Role Phone Unavailable Primary Care Provider Unavailabl e Encounter Details Date Type Department Care Team (Late st Contact Info) Description 03/25/[address] [facility] Pathology & Laboratory Medicine - [facility] [address] [place] [address] Outr Resulting Lab, Provider Social History Tobacco [...] Date/Time Associated Diagnosis Comments OVA/PARASITE EXAM Routine 03/25/2023 10: 15 EST documented in this encounter Results * OVA/PARASITE EXAM (03/25/2023 10:15 EST) Parasite No ova and parasites seen. 03/26/2023 14:08 EST [facility] Feces SPECIMEN FROM RECTUM / Unknown 03/25/2023 10:15 EST 03/25/2023 22:30 EST Narrative [facility] - 03/26/2023 14:08 EST (If Cryptosporidium, Cyclospora, or Microsporidium are suspected, specific tests must be requested.) Single negative specimen does not rule out the possibility of a parasitic infection. us Provider Outr Resulting Lab MICROBIOLOGY - GENER AL ORDERABLES Final Result [facility] [address] [place] [address] documented in this encounter Visit Diagnoses Not on filedocumented in this encounter
--- OUTSIDE RECORDS SUMMARY | 2024-06-20 16:03 | XMS_ITS | Encounter Summary ---
Author Organization [facility] Address [address] [place] [address] Care Team Providers Care Chemical Milling Processor Name Role Phone Unavailable Primary Care Provider Unavailabl e Encounter Details Date Type Department Care Team (Late st Contact Info) Description 12/25/2020 Lab Requisition [facility] Pathology & Laboratory Medicine - [facility] [address] [place] [address] Outr Resulting Lab, Provider Social History Tobacco [...] Diagnosis Comments GIARDIA AND CRYPTOSPORIDIUM ANTIGENS Routine 12/24/2020 11:35 EDT OVA/PARASITE EXAM Routine 12/24/2020 11: 35 EDT documented in this encounter Results * GIARDIA AND CRYPTOSPORIDIUM ANTIGENS (12/24/2020 11:35 EDT) Giardia and Cryptosporidium Cryptosporidium Antigen Neg and Giardia Antigen Neg Cryptosporidium Antigen Neg and Giardia Antigen Neg 9:48 EDT [facility] Feces SPECIMEN FROM RECTUM / Unknown 12/24/2020 11:35 EDT 12/25/2020 16:22 EDT us Provider Outr Resulting Lab MICROBIOLOGY - GENER AL ORDERABLES Final Result [facility] [address] [place] [address] * OVA/PARASITE EXAM (12/24/2020 11:35 EDT) Parasite No ova and parasites seen. 12/26/2020 15:17 EDT [facility] Feces SPECIMEN FROM RECTUM / Unknown 12/24/2020 11:35 EDT 12/25/2020 16:22 EDT Narrative [facility] - 12/26/2020 15:17 EDT (If Cryptosporidium, Cyclospora, or Microsporidium are suspected, specific tests must be requested.) Single negative specimen does not rule out the possibility of a parasitic infection. us Provider Outr Resulting Lab MICROBIOLOGY - GENER AL ORDERABLES Final Result [facility] [address] [place] [address] documented in this encounter Visit Diagnoses Not on filedocumented in this encounter
--- OUTSIDE RECORDS SUMMARY | 2024-06-20 16:04 | XMS_ITS | Encounter Summary ---
[place] [address] Care Team Providers Care Director Dance Name Role Phone Angel Luis Batista MD Primary Care Provider + [phone] Reason for Referral * Diagnostic Test (Routine) - Closed Specialty Diagnoses / Procedures Referred By Contac t Referred To Contact Radiology Diagnoses Chronic left-sided low back pain with left-sided sciatica Procedures MRI Lumbar Spine wo Contrast (Generic) Marta Rasheed MD [facility] [place] [address] [place] [address] Referral ID Status Reason Start Date Expiration Date V isits Requested Visits Authorized [id number] Closed Specialty Service Requested 08/24/2017 11/22/2017 1 1 Reason for Visit * Diagnostic Test (Routine) - Closed Specialty Diagnoses / Procedures Referred By Contac t Referred To Contact Radiology Diagnoses Chronic left-sided low back pain with left-sided sciatica Procedures MRI Lumbar Spine wo Contrast (Generic) Marta Rasheed MD [facility] [place] [address] [place] [address] Referral ID Status Reason Start Date Expiration Date V isits Requested Visits Authorized [id number] Closed Specialty Service Requested 08/24/2017 11/22/2017 1 1 Encounter Details Date Type Department Care Team (Latest Contact Info) Description 08/31/2017 8:34 AM EDT - 08/31/2017 11:59 PM EDT Hospital [place] [address] Marta Rasheed MD [facility] [place] [address] Chronic left-sided low back pain with left-sided sciatica Discharge Disposition: Home Social History Tobacco Use Types Packs/Day Years Used Date Smoking Tobacco: Some Days Smokeless Tobacco: Never Comments:mini cigars Alcohol Use Standard Drinks/Week Comments Yes 0 (1 standard drink = 0.6 oz pur e alcohol) one drink per week Sex and Gender Information Value Date Recorded Sex Assigned at Not on file Gender Identity Not on file Sexual Orientation Not on file documented as of this encounter Medications at Time of Discharge Medication Sig Dispensed Refills Start Date End Date gabapentin (NEURONTIN) 100 mg Capsule Take 1 capsule by mouth 3 times daily. (follow instructions on the sheet given in the Pain Clinic) 180 capsule 12 08/31/2017 PROAIR HFA 90 mcg/actuation HFA Aerosol Inhaler inhale 2 puffs by mouth four times a day if needed 0 03/19/2017 busPIRone (BUSPAR) 15 mg Tablet Take 15 mg by mouth 3 times daily. 0 07/27/2017 diclofenac (SOLARAZE) 3 % Gel daily. 0 06/02/2017 DULoxetine (CYMBALTA) 60 mg Capsule, Delayed Release(E.C.) take 1 capsule by mouth once daily 0 07/19/2017 lisinopril (PRINIVIL;ZESTRIL) 10 mg Tablet take 1 tablet by mouth once daily 0 07/16/2017 multivitamin (THERAGRAN) tablet 10/02/2005 acetaminophen (TYLENOL EXTRA STRENGTH) 500 mg tablet 10/02/2005 C[facility] Free Text Med - Albuterol 10/02/2005 07/08/2020 documented as of this encounter Plan of Treatment Not on file documented as of this encounter Procedures Procedure Name Priority Date/Time Associated Diagnosis Comments MRI LUMBAR SPINE WITHOUT CONTRAST Routine 08/31/2017 9:19 AM EDT Chronic left-sided low back pain with left-sided sciatica documented in this encounter Results * MRI Lumbar Spine wo Contrast (Generic) (08/31/2017 9:19 AM EDT) Anatomical Region Laterality Modality L-spine Magnetic Resonan ce Impressions 08/31/2017 2:22 PM EDT Progression of malalignment at L5-S1 related to bilateral pars defects. Comment: The following findings are so common in people without low back pain that while we report their presence, they must be interpreted with caution and in context of the clinical situation (Reference- Fernandak et al, Spine 2001). Findings: (Prevalence in patients without low back pain), disc degeneration (decreased T2 signal, height loss, bulge) (91%), disc T2-signal loss (83%), disc height loss (56%), disc bulge (64%), disc protrusion (32%), annular fissure (38%). Narrative 08/31/2017 2:22 PM EDT EXAMINATION: MRI LUMBAR SPINE WO CONTRAST (GENERIC) CLINICAL HISTORY: s/p lumbar fusion in 2005, new left LE radicular pain, lateral thigh and leg ?L4 or L3 involvement TECHNIQUE: MRI acquired of the lumbar spine without contrast. COMPARISON: Lumbar spine radiograph 08/03/2017 MR lumbar spine 08/04/2005 FINDINGS: Since 2005 has been progression of anterolisthesis of L5 with respect to S1 secondary to bilateral pars defects. There is interval increased endplate marrow edema and fatty change at L5-S1 related to disc degeneration. The conus is normal signal and terminates at L1. T12-L1: Normal. L1-2: Normal. L2-3: Normal. L3-4: Minor disc bulge without significant stenosis. L4-5: Disc bulge and facet arthropathy contributes to mild bilateral foraminal stenosis. L5-S1: Bilateral pars defects with malalignment contributing to severe bilateral foraminal stenosis. Hypertrophic changes contributing to mild central canal stenosis. Procedure Note Rex Roach MD - 08/31/2017 EXAMINATION: MRI LUMBAR SPINE WO CONTRAST (GENERIC) CLINICAL HISTORY: s/p lumbar fusion in 2005, new left LE radicular pain,lateral thigh and leg ?L4 or L3 involvement TECHNIQUE: MRI acquired of the lumbar spine without contrast. COMPARISON: Lumbar spine radiograph 08/03/2017 MR lumbar spine 08/04/2005 FINDINGS: Since 2005 has been progression of anterolisthesis of L5 with respect toS1 secondary to bilateral pars defects. There is interval increased endplatemarrow edema and fatty change at L5-S1 related to disc degeneration. The conusis normal signal and terminates at L1. T12-L1: Normal. L1-2: Normal. L2-3: Normal. L3-4: Minor disc bulge without significant stenosis. L4-5: Disc bulge and facet arthropathy contributes to mild bilateralforaminal stenosis. L5-S1: Bilateral pars defects with malalignment contributing to severebilateral foraminal stenosis. Hypertrophic changes contributing to mild centralcanal stenosis. IMPRESSION Progression of malalignment at L5-S1 related to bilateral pars defects. Comment: The following findings are so common in people without low backpain that while we report their presence, they must be interpreted with cautionand in context of the clinical situation (Reference- Davidvik et al, [id number]). Findings: (Prevalence in patients without low back pain), discdegeneration (decreased T2 signal, height loss, bulge) (91%), disc T2-signal loss(83%), disc height loss (56%), disc bulge (64%), disc protrusion (32%), annularfissure (38%). Marta Rasheed MD IMG MRI ORDERABLES documented in this encounter Visit Diagnoses Diagnosis Chronic left-sided low back pain with left-sided sciatica documented in this encounter Care Teams Director Dance Relationship Specialty Start Date End Date Angel Luis Batista MD [address] [place] [address] PCP - General 04/08/10 11/18/21 documented as of this encounter
--- OUTSIDE RECORDS SUMMARY | 2024-06-20 16:04 | XMS_ITS | Encounter Summary ---
[place] [address] Care Team Providers Care Semiconductor Packages Platemaker Name Role Phone Angel Luis Batista MD Primary Care Provider + [phone] Encounter Details Date Type Department Care Team (Late st Contact Info) Description 09/29/2017 Telephone [place] [address] Dayanna Smith RN Social History Tobacco Use Types Packs/Day Years Used Date Smoking Tobacco: Some Days Cigarettes Cigars Smokeless Tobacco: Never Comments:mini cigars Alcohol Use Standard Drinks/Week Comments Yes 0 (1 standard drink = 0.6 oz pur e alcohol) one drink per week Sex and Gender Information Value Date Recorded Sex Assigned at Not on file Gender Identity Not on file Sexual Orientation Not on file documented as of this encounter Miscellaneous Notes * Telephone Encounter - Dayanna Smith RN - 09/29/2017 7:52 AM EDT Mr. Mann spoke with Dr. Rasheed on the phone this morning. Mr. Mann is unsure if he wants toproceed with injections vs surgery vs spinal cord stimulation. Dr. Rasheed will speak with Dr. Cyr about the best route for pain management for Mr. Mann. documented in this encounter Plan of Treatment Not on file documented as of this encounter Visit Diagnoses Not on filedocumented in this encounter Care Teams Semiconductor Packages Platemaker Relationship Specialty Start Date End Date Angel Luis Batista MD [address] [place] [address] PCP - General 04/08/10 11/18/21 documented as of this encounter
--- OUTSIDE RECORDS SUMMARY | 2024-06-20 16:04 | XMS_ITS | Encounter Summary ---
Author Organization Formerly [facility] Address [facility] [place]elle [place] [address] Care Team Providers Care Termite Exterminator Helper Name Role Phone Angel Luis Batista MD Primary Care Provider [phone] Encounter Details Date Type Department Care Team (Latest Contact Info) Description 08/03/2017 12:14 PM EDT - 08/03/2017 11:59 PM EDT Hospital Encounter XRay at [address] [place] [address] Marta Rasheed MD [facility] [place] [address] Chronic left-sided low back pain with left-sided [...] Sig Dispensed Refills Start Date End Date PROAIR HFA 90 mcg/actuation HFA Aerosol Inhaler [...] Procedure Name Priority Date/Time Associated Diagnosis Comments XR LUMBAR SPINE MIN 4 VIEW Routine 08/03/2017 12:41 PM EDT Chronic left-sided low back pain with left-sided sciatica documented in this encounter Results * XR Lumbar Spine Min 4 view (08/03/2017 12:41 PM EDT) Anatomical Region Laterality Modality L-spine N/A Digital Radiogra phy Impressions 08/03/2017 3:22 PM EDT L5 spondylolysis with grade 2 spondylolisthesis. No appreciable change in alignment with flexion and extension. Narrative 08/03/2017 3:22 PM EDT EXAMINATION: XR LUMBAR SPINE MIN 4 VIEW CLINICAL HISTORY: low back pain, previous lumbar spine fusion, please assess for instability above the fusion (L5-S1) TECHNIQUE: AP lateral and oblique views of the lumbar spine in addition, lateral views were acquired in flexion and extension. COMPARISON: 02/19/2006 FINDINGS: As seen on the previous study there our prominent bilateral pars defects at L5 associated with grade 2 spondylolisthesis. With flexion and extension I do not see an appreciable change in the degree of listhesis. Additional disc degeneration and facet arthropathy at L4-5 has worsened when compared to the 2005 examination. The alignment is unchanged. There is an apparent retrolisthesis due to the pronounced anterior displacement of the L5 body. No acute injury is identified. Procedure Note Luis Alberto Man MD - 08/03/2017 EXAMINATION: XR LUMBAR SPINE MIN 4 VIEW CLINICAL HISTORY: low back pain, previous lumbar spine fusion, pleaseassess for instability above the fusion (L5-S1) TECHNIQUE: AP lateral and oblique views of the lumbar spine in addition, lateralviews were acquired in flexion and extension. COMPARISON: 02/19/2006 FINDINGS: As seen on the previous study there our prominent bilateral pars defectsat L5 associated with grade 2 spondylolisthesis. With flexion and extension I do not see an appreciable change in thedegree of listhesis. Additional disc degeneration and facet arthropathy at L4-5 has worsenedwhen compared to the 2006 examination. The alignment is unchanged. There isan apparent retrolisthesis due to the pronounced anterior displacement of theL5 body. No acute injury is identified. IMPRESSION L5 spondylolysis with grade 2 spondylolisthesis. No appreciable change in alignment with flexion and extension. Marta Rasheed MD IMG DX ORDERABLES documented in this encounter Visit Diagnoses Diagnosis Chronic left-sided low back pain with left-sided sciatica documented in this encounter Care Teams Termite Exterminator Helper Relationship Specialty Start Date End Date Angel Luis Batista MD [address] [place] [id number] PCP - General 04/08/10 11/18/21 documented as of this encounter
--- OUTSIDE RECORDS SUMMARY | 2024-06-20 16:04 | XMS_ITS | Encounter Summary ---
Author Organization Formerly [facility] [place] [address] Care Team Providers Care Inside Sales Territory Manager Name Role Phone Angel Luis Batista MD Primary Care Provider + [phone] Encounter Details Date Type Department Care Team (Late st Contact Info) Description 07/12/2020 External Results Pre-Admission Testing at [facility] [address] [place] [id number] Social History Tobacco Use Types Packs/Day Years [...] Procedure Name Priority Date/Time Associated Diagnosis Comments LAB SCAN Routine 07/09/2020 ECG SCAN Routine 07/05/2020 documented in this encounter Results * Scan Doc: Lab (07/09/2020) Historical Provider MEDIA MGR SCAN EX T ORDR/RSLT * Scan Doc: ECG (07/05/2020) Historical Provider MEDIA MGR SCAN EX T ORDR/RSLT documented in this encounter Visit Diagnoses Not on filedocumented in this encounter Care Teams Inside Sales Territory Manager Relationship Specialty Start Date End Date Angel Luis Batista MD [address] [place] [address] PCP - General 04/08/10 11/18/21 documented as of this encounter
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
--- OUTSIDE RECORDS SUMMARY | 2024-06-20 16:04 | XMS_ITS | Encounter Summary ---
Author Organization [facility] Address [facility] [place] [address] Care Team Providers Care Carburetor Rebuilder Name Role Phone Angel Luis Batista MD Primary Care Provider + [phone] Reason for Visit * Reason Comments Back Pain lower Left Leg Pain hip down leg * Surgical (Routine) - Closed Specialty Diagnoses / Procedures Referred By Contac t Referred To Contact Orthopaedics Diagnoses Foraminal stenosis of lumbar region Lumbar post-laminectomy syndrome Marta Rasheed MD [facility] [place] [address] [facility] [place] [address] [address] Referral ID Status Reason Start Date Expiration Date V isits Requested Visits Authorized [id number] Closed Consult, Test & Treat 08/31/2017 08/31/2018 1 1 Encounter Details Date Type Department Care Team (Latest Contact Info) Description 09/13/2017 3:40 PM EDT Office Visit [place] [address] Aron Cyr MD [facility] [place] [address] Spondylolisthesis at L5-S1 level Social History Tobacco Use Types Packs/Day Years [...] on file documented as of this encounter Last Filed Vital Signs Vital Sign Reading Time Taken Comments Blood Pressure - - Pulse - - Temperature - - Respiratory Rate - - Oxygen Saturation - - Inhaled Oxygen Concentration - - Weight 98 kg (216 lb) 09/13/2017 3:50 PM EDT Height 177.8 cm (5' 10) 09/13/2017 3:50 PM EDT Body Mass Index 30.99 09/13/2017 3:50 PM EDT documented in this encounter Progress Notes * Aron Cyr MD - 09/13/2017 3:40 PM EDT Chief complaint: Low back pain radiating to left lower extremity History of present illness: Mr. Mann is a 52-year-old male I am seeing in consultation for Dr. Rasheed regards to his back pain that radiates to his left buttock, posterior lateral thigh, lateral leg, into the dorsum of the left foot. These symptoms came on insidiously about 5 or 6 months ago. He underwent an L5- S1 posterolateral uninstrumented fusion using left iliac crest bone graft without decompression by Dr. Holland in 2005. Following that surgery, he had resolution of his lower extremity pain, though he continued to have low back pain. He continues to have the same degree of low backpain he has had since surgery. The left lower extremity pain is new. He reports numbness on the dorsum of the left foot. He has not noted weakness. The pain is worse with standing and walking and limits his standing to about 10 minutes and walking to 1/2 mile. He gets relief by sitting down. The pain does bother him at night. He denies constitutional symptoms or change in his bowel or bladder function. He takes gabapentin that helps some. He takes Tylenol with minimal benefit. He uses the diclofenac gel with no benefit. He has had physical therapy and epidural steroid injections in the past with no benefit. He has seen a chiropractor recently that helped some with his low back pain in the short-term but did not help his leg pain much. 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 He has not missed work related this. He smokes about 1/4 pack per day smokes an occasional cigar. He occasionally drinks. Review of systems: All negative except musculoskeletal as above Physical exam Patient is 5 foot 10, 216 pounds, with BMI of 31 General: Patient is comfortable, no acute distress Back: His well-healed midline incision. His back is nontender to palpation. He can flex 90?? and extend 15??, with extension being painful. Neurological exam he walks a normal gait. He can heel walk and toe walk. Motor exam reveals 4/5 strength his left EHL with other motor groups 5/5. He is mildly altered sensation on the dorsum of the left foot. Reflexes are 2/4 at the knees and ankles. Straight leg raise is negative bilaterally. He has no clonus, and Babinski is negative. Hip exam: He is normal, painless range of motion of both hips. Vascular exam: His palpable pulses bilaterally. Imaging: AP and lateral flexion-extension x-rays of the lumbar spine obtained today demonstrate a grade 2 isthmic spondylolisthesis of L5 on S1 with complete disc height loss there. He has mild retrolisthesis of L4 on L5. He has no evidence of instability. MRI of the lumbar spine from 08/31/17 was reviewed. This shows some mild disc degeneration at L4-L5 with no nerve compression there. At L5-S1, he has a grade 1 isthmic spondylolisthesis with severe left-sided and moderate-severe right- sided foraminal narrowing. The degree of slip is increased on theplain film is compared to the MRI. Assessment/plan: Mr. Mann is a 52-year-old male who underwent an L5-S1 uninstrumented fusion 12years ago for isthmic spondylolisthesis. Over the past 5 or 6 months, he has developed a left L5 radiculopathy in the setting of severe foraminal stenosis on the left at L5-S1. There is radiographic evidence that the slip has progressed and the disc height has decreased since 2006, suggesting he may have a pseudoarthrosis. We discussed treatment options for this that include physical therapy, continued medication, left L5-S1 transforaminal epidural steroid injection, and surgery. Prior to embarking on any surgery, I would want him to have a CT scan to better define the fusion status of the bony anatomy. If he decides he wants to go ahead with therapy or injection, he can call and we can setthat up over the phone. If he wants to discuss surgery further, he should return to see me with a CT scan of the lumbar spine prior to the visit. documented in this encounter Plan of Treatment Scheduled Referrals Name Type Priority Associated Diagnoses Orde r Schedule Referral to Spine Center Outpatient Referral Routine Foraminal stenosis of lumbar region Lumbar post-laminectomy syndrome Ordered: 08/31/2017 documented as of this encounter Visit Diagnoses Diagnosis Spondylolisthesis at L5-S1 level Congenital spondylolisthesis documented in this encounter Care Teams Carburetor Rebuilder Relationship Specialty Start Date End Date Angel Luis Batista MD [address] [place] [address] PCP - General 04/08/10 11/18/21 documented as of this encounter
--- OUTSIDE RECORDS SUMMARY | 2024-06-20 16:04 | XMS_ITS | Encounter Summary ---
Author Organization Count Includes [facility] [place] [address] Care Team Providers Care Heel Boom Operator Name Role Phone Angel Luis Batista MD Primary Care Provider + [phone] Encounter Details Date Type Department Care Team (Late st Contact Info) Description 08/16/2020 3:15 PM EDT Ancillary Procedure Radiology at [facility] [address] [place] [id number] Gladis Alvarado MD [address] [address] Social History Tobacco Use Types Packs/Day Years [...] Associated Diagnosis Comments FILM LIBRARY STORAGE ONLY DX SPINE Routine 08/16/2020 3:13 PM EDT documented in this encounter Results * Film Library- Storage Only DX Spine (08/16/2020 3:13 PM EDT) Narrative [facility] - 08/16/2020 3:13 PM EDT This exam is auto-finalizing. It's purpose is for storage only. Gladis Alvarado MD IMG FILM LIBRARY ORDERABLES [facility] [place], [place] documented in this encounter Visit Diagnoses Not on filedocumented in this encounter Care Teams Heel Boom Operator Relationship Specialty Start Date End Date Angel Luis Batista MD [address] [place] [address] PCP - General 04/08/10 11/18/21 documented as of this encounter
--- OUTSIDE RECORDS SUMMARY | 2024-06-20 16:04 | XMS_ITS | Encounter Summary ---
Author Organization [facility] [place] [address] Care Team Providers Care Fisher Scallop Name Role Phone Angel Luis Batista MD Primary Care Provider + [phone] Reason for Visit * Auth/Cert Specialty Diagnoses / Procedures Referred By Flip t Referred To Contact Diagnoses Cervical Disc Disease [...] SPINE SURGERY ONLY; MORSELIZED (WRVU *) MODIFIER [address] Referral ID Status Reason Start Date Expiration Date Visits Re quested Visits Authorized [id number] 1 1 Encounter Details Date Type Department Care Team (Latest Contact Info) Description 07/15/2020 6:26 AM EST - 07/15/2020 3:17 PM [facility] En[facility] Med Surg Unit at [facility] [address] [place] [id number] Gladis Alvarado MD [address] [place] [address] Herniation of intervertebral disc at C5-C6 level Discharge Disposition: Home Social History Tobacco Use [...] Mass Index 34.97 07/15/2020 6:40 AM EST documented in this encounter Discharge Instructions * Patient Instructions* uSly Rosenbaum PA - 07/15/2020 7:01 AM EST Full recovery will depend on your having a strong, positive attitude, setting small goals for improvement and working steadily to accomplish each goal. FOLLOW UP APPOINTMENTS: You will be scheduled for a follow-up appointment four to six weeks after surgery with a Physician???s [employer] at the surgeon???s office. You will be scheduled to have a lateral cervical spine x-ray done on the same day as your follow-up appointment. [facility] to your follow-up appointment to have the x-rays done. The office will send theorder to the hospital in advance. MEDICATIONS: ??? Take your medicine at the time your doctor ordered. ??? Keep a list of your medicines, vitamins, and herbal supplements you take. Keep this list with you at all times. Show it to your caregiver at every visit. Keep the list up-to-date. ??? Ask your caregiver or pharmacist to write an explanation of each medicine you are taking. This should include: why you are taking it, possible side effects, best time of day to take it, what foods to take the medication with or foods to avoid, and when to stop taking it. ??? Only take azox-kqt-hkcghgs or prescription medicine for pain, discomfort or fever as directed by your caregiver. ??? Consult your doctor or pharmacist with any questions. NEW MEDICATIONS AT DISCHARGE: []None []Given prescriptions in office preoperatively OR: Medication Dose/Route/ Frequency Prescription given? Reason for medication Medscape monograph discussed []Yes []No []Yes []No []Yes []No []Yes []No PAIN: ??? It is normal to have pain after your surgery; especially in the neck and upper back. ??? This does not mean that the procedure was unsuccessful or that your recovery will be delayed. ??? Arm and/or leg aching is also not uncommon. o This is primarily caused by inflammation of the previously compressed nerve o The discomfort will gradually decrease as the nerve continues to heal. ??? You may also experience muscle spasms across your back and into your extremities. ??? Medications will be given to control pain and decrease spasm intensity. ??? Moist heat and/or ice and frequent repositioning may also be helpful. DIET: ??? You may adjust your diet back to normal as your appetite returns. ??? Swallowing difficulty can be common after this surgery but will improve with time ??? Be sure to drink plenty of fluids, particularly water, and eat whole grain cereals, fruits and fruit juices to combat constipation that is sometimes caused by pain medications. ??? If constipation does occur, an over the counter laxative is acceptable. ??? Call your surgeon if you experience persistent nausea and vomiting. ACTIVITY: ??? Increase your activity slowly. Daily walking is the best exercise. Try to increase your distance a little each day. Go at a pace that doesn???t make you too tired or cause too much pain. ??? It is normal to tire easily for the first week or so after you return home. ??? DO NOT lift anything over five pounds. Keep in mind a gallon of milk weighs eight pounds. Do not lift anything that you cannot easily lift with one hand. ??? Sexual relations may be resumed during the recovery period, but positions that strain the neck or cause pain should be avoided. ??? Consult your surgeon in regards to your driving status. There are no set time restrictions. Usecommon sense and do not attempt to resume driving until you feel completely comfortable to drive inand uninhibited manner. ACTIVITY (continued): ??? It is recommended that you do not drive for the first 1-2 weeks or while taking narcotic pain relievers. ??? You may resume other physical activities including work only after consulting with your treating physician. POST ANESTHESIA/SEDATION: ??? You have received medication for sedation and comfort during your procedure. Because these havenot completely left your system, please observe the following precautions: o Plan to relax for the next several hours. o DO NOT drive or operate machinery until the day after your procedure, longer as recommended by your surgeon. o Avoid alcohol for the next 24 hours. o Do not make any important personal or business decisions today. BANDAGE/SHOWERING: You will have Dermabond over the incision (typically a purple glue like substance), with inner sutures that do not need to be removed. The Dermabond will gradually fall off. ??? You may shower after three to five days. ??? Do NOT scrub the incision. ??? Pat the area dry with a towel after showering. ??? Avoid soaking (baths, hot tubs, swimming, etc.) until approximately two weeks after your surgery, when your wound is all the way healed. SEEK IMMEDIATE MEDICAL CARE/CALL YOUR SURGEON IF: ??? There is redness, swelling or increasing pain at the wound. ??? You notice purulent (colored, puss-like) drainage coming from the wound. ??? You notice a foul smell coming from the wound or bandage. ??? You experience urinary problems. ??? You experience any NEW weakness or numbness in your arms or legs. ??? You develop an oral temperature about 101 degrees F. ??? There is a breaking open of the wound. The edges do not stay together after the sutures or tapehas been removed. SEEK IMMEDIATE MEDICAL CARE/CALL YOUR SURGEON IF (continued): ??? There is persistent bleeding from an incision. ??? You have increasing swelling in the neck. ??? You develop difficulty breathing - Call 911. If you have questions, please call [facility] at [phone], during business hours of Wednesday through Wednesday from 8:00 a.m. until 4:00 p.m. In case of emergency during non-business hours, please call the same main number and follow the prompts to page the neurosurgeon vehicle monitor technician. SMOKING CESSATION INFORMATION: ??? [place] QUITLINE: ??? [place] QUITLINE: ??? [email or web address] If you smoke, stop now! Smoking may impede healing. MAKE SURE YOU: ??? Understand these instructions. ??? Will seek medical care if you are feeling poor, or get worse. ??? Will call the surgeon???s office with any questions or concerns at : [phone] documented in this encounter Medications at Time of Discharge Medication Sig Dispensed Refills Start Date End Date cyclobenzaprine (Flexeril) 10 mg Tablet Take 1 tablet by mouth 3 times daily as needed for Muscle spasms. 15 tablet 07/15/2020 acetaminophen-codeine (Tylenol-Codeine #3) 300-30 mg Tablet Tylenol-Codeine #3 300 mg-30 mg tablet Take 1 tablet by oral route at bedtime. Desoximetasone (Topicort) 0.05 % Gel Topicort 0.05 % topical gel APPLY A THIN LAYER TO THE AFFECTED AREA(S) BY TOPICAL ROUTE 2 TIMES PER DAY ; RUB IN GENTLY AND COMPLETELY fluticasone propionate (Flovent HFA) 110 mcg/actuation HFA Aerosol Inhaler Every 12 hours. HYDROcodone-acetamino phen (VICODIN) 5-300 mg Tablet TAKE ONE TABLET BY MOUTH EVERY 8 HOURS NEEDED 02/15/2020 lidocaine (Lidoderm) 5% Adhesive Patch, Medicated APPLY ONE PATCH TOPICALLY TO MOST PAINFUL AREA FOR UP TO 12 HOURS THEN REMOVE FOR 12 HOURS PATCH FREE 02/15/2020 oxyCODONE (ROXICODONE) 10 mg Tablet TAKE 1 TABLET BY MOUTH THREE TIMES DAILY NEEDED FOR PAIN 06/25/2020 propranoloL (Inderal) 40 mg Tablet TAKE 1 TABLET BY MOUTH TWICE A DAY 06/17/2020 Incruse Ellipta 62.5 mcg/actuation Disk with Device INHALE 1 PUFF BY MOUTH DAILY 06/28/2020 gabapentin (NEURONTIN) 100 mg Capsule Take 1 [...] (TYLENOL EXTRA STRENGTH) 500 mg tablet 10/02/2005 documented as of this encounter Progress Notes * Irma Pro RN - 07/15/2020 3:15 PM EST Kyree Mann discharged per provider order to home via 's vehicle. All IV???s removed. Discharge instructions reviewed with patient. All questions or concerns answered at this time. Patientencouraged to call with any further questions or concerns. Copy of After Visit Summary given to patient at time of discharge. All personal belongings returned to patient, including prescription medications. Patient assisted to personal vehicle via staff member and wheelchair. Irma Pro RN, 07/15/2020 * Irma Pro RN - 07/15/2020 2:15 PM EST Patient is voiding, tolerating foods, pain is well controlled and patient has walked with nursing. Patient is meeting all goals and would like to go home today, * Irma Pro RN - 07/15/2020 12:21 PM EST Kyree Mann arrived to Medical Surgical Unit from the PACU s/p Cervical spondylosis [M47.812]. Patient is alert and oriented x4. See Adult Patient Care Summary for focused assessment upon admission. Dressing is clean, dry and intact. Patient rates their pain as 4/10 at this time. Patient oriented to room and the units practice of purposeful rounding. Call dumont within reach and all questions/concerns answered at this time. Will continue to monitor patient as necessary. Irma Pro RN, 07/15/2020 documented in this encounter H&P Notes * Suly Rosenbaum PA - 07/15/2020 7:00 AM EST Patient Name: Kyree Mann Patient Age: 55 y.o. Birthdate: 1965 Admit date: 07/15/2020 Attending Physician: Gladis Alvarado MD The patient's history and physical exam have been reviewed and completed. There has been no interval change from that of the pre-operative history and physical exam done within the last 30 days. documented in this encounter Miscellaneous Notes * Op Note - Gladis Alvarado MD - 07/15/2020 8:00 AM EST [facility] Operative Note [facility] [address] [place] [address] Patient Name: Kyree Mann : [id number] MR#: [id number] Case Date: 07/15/2020 Case Scheduled Time: 0730 Surgeon: Surgeon(s) and Role: * Gladis Alvarado MD - Primary * Suly Rosenbaum PA - Physician [employer] Preoperative diagnosis: Cervical Disc Disease Postoperative diagnosis: Cervical Disc Disease Procedure(s) (LRB): ARTHRODESIS, ANT INTERBODY,DECOMPRESSION; CERVICAL BELOW C2 (WRVU 25) (Bilateral) ARTHRODESIS ANT INTERBDY CERVCL BELOW C2 EA ADDL INTRSPACE (WRVU 6.5) (Bilateral) INSERTION INTERBODY BIOMECH DEV TO INTERVEBRAL DISC SPACE, EA INTERSPACE (WRVU 4.25) (Bilateral) ALLOGRAFT FOR SPINE SURGERY ONLY; MORSELIZED (WRVU *) (Bilateral) MODIFIER K2 MEDICAL - [place] (Bilateral) Anterior cervical discectomy and instrumented fusion of see 5 6 and C6-7 with DBM and [place] Anesthesia: General Findings: Stenosis of the C 6 and C7 foramina bilaterally due to disc osteophyte complexes. There is also a disc herniation at the C 5-6 level into the C6 foramen. Excellent decompression was obtained at both levels on both sides. No CSF leak. Nerves intact. An 8 mm [place] was tapped into each interspace and secured with 14 mm setscrews all locked. 20 cc blood loss. Complications: None Intake: Intraprocedure Crystalloid Total Intake lactated ringers infusion 1000.00 mL Total Intake 1000 mL Transfusion No data found in the last 1 encounters. Output: Estimated Blood Loss: * No values recorded between 07/15/2020 8:00 AM and 07/15/2020 9:26 AM * Urine Output:: (no urine output recorded) Other Output: (no other output recorded) Drains: none Specimens removed during surgery: none Disposition: awakened from anesthesia, extubated and taken to the recovery room in a stable condition, having suffered no apparent untoward event. Condition: doing well without problems (Please see the Surgical Encounter Summary for any Implant and Specimen details pertinent to this patient.) Indications for the Procedure: Patient is a 55-year-old gentleman with a history of chronic low back pain. He has been suffering from a C 6 and 7 radicular pain pattern of pain into the right upper extremity that is not respond to conservative measures. His imaging findings show reversal of the cervical curvature at the C5-6 and C6-7 levels and a foraminal stenosis consistent with his symptoms. He does not have any cervical myelopathy or significant cord compression. Given failure of conservative measures surgery was offered. Risks of surgery including but not excluding infection, bleeding, failure to improve, adjacent level disease, injury to the tracheal and esophageal structures, carotid artery, recurrent laryngeal nerve among others as well as spinal cord were all discussed in detail prior to surgery and the patient wished to proceed. Description of the Procedure: Patient is taken into the operating room and underwent general endotracheal anesthesia. Patient is lying supine with a gelpad between the shoulder blades and the neck in a neutral and slightly extended position. The anterior cervical region is prepped and draped in the usual sterile fashion. Time out performed. Fluoroscopic guidance is used to to direct the level of the incision. The incision wasmade to the right side of midline in a skin crease centered over the appropriate operative level. The incision is taken down to the platysma muscle and the platysma muscle is incised with the Bovie.Tthe sternomastoid muscle is identified and its medial border is dissected. In the intrafascial plane, medial to the carotid artery and lateral to the tracheoesophageal structures, the anterior cervical spine is encountered. The prevertebral fascia is opened with a peanut dissector. A spinal needle was placed into the C5-6 level and fluoroscopic confirmation obtained. A Chandler retractor system isused to retract the tracheoesophageal structures to the left and protect the carotid on the right. The [place] screws were placed into the vertebral bodies of C5 and C7. The microscope was taken into the field. Attention was first directed the C5-6 interspace and the incision was made into both the C5-6 and C6-7 disc spaces. The disc was removed with pituitary rongeurs and various curettes. The high- speed drill was used to thin down the posterior disc osteophyte complexes. The posterior longitudinal ligament along with the posterior disc osteophyte complex is removed with Kerrison rongeurs opening up the central canal and into both neural foramina. At this point excellent decompression of the central canal and both neural foramina was obtained. The endplates were prepaired with the high-speed drill. This is then repeated at the C6-7 level by removing the disc osteophyte complexes posteriorly. The [place] is then sized appropriately and filled with DBM and to tapped into each interspace under fluoroscopic guidance. Three 14 mm screws are then placed appropriately securing the [place] in place. [place] screws have been removed. Fluoroscopic confirmation obtained. The Chandler retractor was then removed and the platysma muscles reapproximated with 3-0 Vicryl running suture with inverted 3-0 Vicryl in the subcutaneous tissue with Dermabond to seal the skin. The patient was then awakened from anesthesia and taken in stable condition to the PACU unit having tolerated the procedure well. The plumber assistant, (), Suly RODRIGUEZ worked under my direction for the duration of the operative session. The middle school assistant principal adequately prepped the operative site and maintained the best possible exposure of anatomy incident to the procedure. () worked under my direction for the duration of the operative session. The middle school assistant principal adequately prepped the operative site and maintained the best possible exposure of anatomy incident to the procedure. Gladis Alvarado MD 07/15/2020 documented in this encounter Plan of Treatment Not on file documented as of this encounter Procedures Procedure Name Priority Date/Time Associated Diagnosis Comments XR FLUORO NO RAD <1HR - OR USE Routine 07/15/2020 9:50 AM EST MODIFIER MARIO SPINE - [place] 07/15/2020 7:35 AM EST Cervical Disc Disease Allograft For Spine Surgery Only Morselized (48901) 07/15/2020 7:35 AM EST Cervical Disc Disease Insert Biomchn Dev Intervertebral Dsc Spc W/Arthrd (69242) 07/15/2020 7:35 AM EST Cervical Disc Disease Arthrd Ant Interdy Cervcl Belw C2 Ea Addl [facility] (24692) 07/15/2020 7:35 AM EST Cervical Disc Disease Arthrodesis, Ant Interbody,Decompression ; Cervical Below C2 (51736) 07/15/2020 7:35 AM EST Cervical Disc Disease IMPLANTABLE DEVICES SCAN 07/15/2020 12:00 AM EST documented in this encounter Results * XR Fluoro No Rad <1Hr - OR Use (07/15/2020 9:50 AM EST) Narrative FLEX - 07/15/2020 9:50 AM EST This exam is auto-finalizing. No interpretation was done. Gladis Alvarado MD IMG FLUORO ORDERA BLES [place], [place] * SCAN DOC: IMPLANTABLE DEVICES (07/15/2020 12:00 AM EST) Unknown MEDIA MGR SCAN EXT O RDR/RSLT documented in this encounter Visit Diagnoses Diagnosis Herniation of intervertebral disc at C5-C6 level Cervical spondylosis Cervical spondylosis without myelopathy documented in this encounter Admitting Diagnoses Diagnosis Cervical spondylosis Cervical spondylosis without myelopathy documented in this encounter Administered Medications Inactive Administered Medications - up to 3 most recent administrations Medication Order MAR Action Action Date Dose Rate Site famotidine (Pepcid) (10 mg/mL) injection 20 mg 20 mg, Intravenous, ONCE, 1 dose, On Wed07/15/20 at 0730, Day of Surgery (Day of Procedure), Routine Given 07/15/2020 7:30 AM EST 20 mg fentaNYL (pf) (50 mcg/mL) multi-dose injection 25-50 mcg 25-50 mcg, Intravenous, EVERY 5 MIN PRN, Starting on Wed07/15/20 at 0929, Until Wed07/15/20 at 1156, Pain, Give 25 mcg every 5 minutes PRN for mild to moderate pain (1-5) Give 50 mcg every 5 minutes PRN for moderate to severe pain (6-10). Hold for respiratory rate less than 10 per minute. Maximum dose 250 mcg over one hour. If ordered with hydromorphone or morphine, give hydromorphone or morphine first and use fentanyl for breakthrough pain., PACU Recovery, Routine Given 07/15/2020 11:09 AM EST 25 mcg HYDROmorphone (Dilaudid) (2 mg/mL) multi-dose injection solution 0.2-0.4 mg 0.2-0.4 mg, Intravenous, EVERY 5 MIN PRN, Starting on Wed07/15/20 at 0929, Until Wed07/15/20 at 1156, Pain, Give 0.2 mg every 5 minutes PRN for mild to moderate pain (1-5) Give 0.4 mg every 5 minutes PRN for moderate to severe pain (6-10). Hold for respiratory rate less than 10 per minute. Maximum dose 4 mg over one hour. If multiple pain medications are ordered, start with hydromorphone or morphine and use fentanyl for breakthrough pain., PACU Recovery, Routine Given 07/15/2020 10:29 AM EST 0.4 mg Given 07/15/2020 10:15 AM EST 0.4 mg lactated ringers infusion 1,000 mL, at 50 mL/hr, Intravenous, CONTINUOUS, Starting on Wed07/15/20 at 0730, Until Wed07/15/20 at 1156, Day of Surgery (Day of Procedure) New Bag 07/15/2020 11:58 AM EST 1,000 mLs 50 mL/hr New Bag 07/15/2020 9:04 AM EST New Bag 07/15/2020 7:13 AM EST 1,000 mLs 50 mL/hr oxyCODONE-acetaminophen (Percocet) 5-325 mg per tablet 1 tablet 1 tablet, Oral, EVERY 4 HOURS PRN, Pain, Starting on Wed07/15/20 at 1221, Until Wed07/15/20 at 1717, for MILD Pain (1 - 3) May be given in conjunction with acetaminophen or ketorolac if ordered oxyCODONE-acetaminophen (Percocet) 5-325 mg per tablet 2 tablet 2 tablet, Oral, EVERY 4 HOURS PRN, Pain, Starting on Wed07/15/20 at 1221, Until Wed07/15/20 at 1717, for MODERATE pain (4 - 7) Given 07/15/2020 12:46 PM EST 2 tablets sodium chloride 0.9 % (flush) flush 3 mL 3 mL, Intravenous, EVERY 12 HOURS SCHEDULED (2 times per day), First dose on Wed07/15/20 at 1315, Until Discontinued, Routine Given 07/15/2020 12:35 PM EST 3 mLs sodium chloride 0.9% infusion 1,000 mL, at 100 mL/hr, Intravenous, CONTINUOUS, Starting on Wed07/15/20 at 1315, Until Wed07/15/20 at 1717 New Bag 07/15/2020 12:36 PM EST 1,000 mLs 100 mL/hr documented in this encounter Active and Recently Administered Medications Times are shown in EST. Scheduled Medication Order 07/13/2020 07/14/2020 07/15/2020 budesonide-formoteroL (SYMBICORT) 160-4.5 mcg/actuation inhaler 2 Inhalation 2 .Inhalation , Inhalation, 2 TIMES DAILY (RESPIRATORY THERAPY), First dose on Wed07/15/20 at 1800, Until Discontinued, Routine busPIRone (Buspar) tablet 15 mg 15 mg, Oral, 3 TIMES DAILY, First dose on Wed07/15/20 at 1500, Until Discontinued, Routine 1500 (Due) ceFAZolin (Ancef) 2 g in dextrose 5% 100 mL infusion (COMPLETED) 2 g, Intravenous, ONCE, 1 dose, On Wed07/15/20 at 0730, Administer over 30 Minutes, To be administered upon arrival to the OR within one hour prior to incision., Day of Surgery (Day of Procedure), Indication for (Active or Suspected): Prophylaxis 733 (Given - Provid er: Raman Rosen CRNA) DULoxetine DR (Cymbalta) capsule 20 mg 20 mg, Oral, DAILY, First dose on Wed07/16/20 at 0900, Until Discontinued, Routine famotidine (Pepcid) (10 mg/mL) injection 20 mg (COMPLETED) 20 mg, Intravenous, ONCE, 1 dose, On Wed07/15/20 at 0730, Day of Surgery (Day of Procedure), Routine 0730 (Given - Provid er: Nikki Carranza RN) gabapentin (Neurontin) capsule 100 mg 100 mg, Oral, 3 TIMES DAILY, First dose on Wed07/15/20 at 1500, Until Discontinued, Routine 1500 (Due) lisinopriL (Prinivil;Zestril) tablet 10 mg 10 mg, Oral, DAILY, First dose on Wed07/16/20 at 0900, Until Discontinued, Routine propranoloL (Inderal) tablet 40 mg 40 mg, Oral, 2 TIMES DAILY, First dose on Wed07/15/20 at 2100, Until Discontinued, Routine sodium chloride 0.9 % (flush) flush 3 mL 3 mL, Intravenous, EVERY 12 HOURS SCHEDULED (2 times per day), First dose on Wed07/15/20 at 1315, Until Discontinued, Routine 1235 (Given - Provid er: Irma Pro RN) Continuous Medication Order 07/13/2020 07/14/2020 07/15/2020 lactated ringers infusion (CANCELED) 1,000 mL, at 50 mL/hr, Intravenous, CONTINUOUS, Starting on Wed07/15/20 at 0730, Until Wed07/15/20 at 1156, Day of Surgery (Day of Procedure) 0713 (New Bag - Prov ider: Michelle Thapa RN)902 (Paused - Provider: Raman Rosen CRNA - Comment: Switch to gravity)09 (New Bag - Provider: Raman Rosen CRNA)1158 (New Bag - Provider: Radha Rider RN) sodium chloride 0.9% infusion 1,000 mL, at 100 mL/hr, Intravenous, CONTINUOUS, Starting on Wed07/15/20 at 1315, Until Wed07/15/20 at 1717 1236 (New Bag - Prov ider: Irma Pro RN) PRN Medication Order 07/13/2020 07/14/2020 07/15/2020 albuteroL 90 mcg/actuation inhaler 2 puff 2 puff, Inhalation, EVERY 4 HOURS PRN, Starting on Wed07/15/20 at 1220, Until Wed07/15/20 at 1717, Wheezing, Shortness of Breath, Routine, Is there a contraindication to the patient receiving this medication as a nebulizer? No, Nebulizers typically cost 5-10 times less than inhalers, making them more cost effective treatment options for most patients. If the patient can receive a nebulizer but you would like to continue ordering an inhaler, please explain why. ok for neb clonazePAM (KlonoPIN) tablet 0.5 mg 0.5 mg, Oral, 2 TIMES DAILY PRN, Starting on Wed07/15/20 at 1220, Until Wed07/15/20 at 1717, Anxiety, DO NOT SPLIT, CRUSH OR OPEN, Routine cyclobenzaprine (Flexeril) tablet 10 mg 10 mg, Oral, 3 TIMES DAILY PRN, Starting on Wed07/15/20 at 1220, Until Wed07/15/20 at 1717, Muscle spasms, Routine diazePAM (Valium) tablet 2 mg 2 mg, Oral, EVERY 6 HOURS PRN, Starting on Wed07/15/20 at 1220, Until Wed07/15/20 at 1717, Anxiety, Routine fentaNYL (pf) (50 mcg/mL) multi-dose injection 25-50 mcg (CANCELED) 25-50 mcg, Intravenous, EVERY 5 MIN PRN, Starting on Wed07/15/20 at 0929, Until Wed07/15/20 at 1156, Pain, Give 25 mcg every 5 minutes PRN for mild to moderate pain (1-5) Give 50 mcg every 5 minutes PRN for moderate to severe pain (6-10). Hold for respiratory rate less than 10 per minute. Maximum dose 250 mcg over one hour. If ordered with hydromorphone or morphine, give hydromorphone or morphine first and use fentanyl for breakthrough pain., PACU Recovery, Routine 1109 (Given - Provid er: Radha Rider RN) HYDROmorphone (Dilaudid) (2 mg/mL) multi-dose injection solution 0.2-0.4 mg (CANCELED) 0.2-0.4 mg, Intravenous, EVERY 5 MIN PRN, Starting on Wed07/15/20 at 0929, Until Wed07/15/20 at 1156, Pain, Give 0.2 mg every 5 minutes PRN for mild to moderate pain (1-5) Give 0.4 mg every 5 minutes PRN for moderate to severe pain (6-10). Hold for respiratory rate less than 10 per minute. Maximum dose 4 mg over one hour. If multiple pain medications are ordered, start with hydromorphone or morphine and use fentanyl for breakthrough pain., PACU Recovery, Routine 1015 (Given - Provid er: Radha Rider RN)1029 (Given - Provider: Radha Rider RN) HYDROmorphone (Dilaudid) (2 mg/mL) multi-dose injection solution 1 mg 1 mg, Intravenous, EVERY 3 HOURS PRN, Starting on Wed07/15/20 at 1221, Until Wed07/15/20 at 1717, Pain, For SEVERE pain (7 - 10), Routine oxyCODONE-acetaminophen (Percocet) 5-325 mg per tablet 1 tablet(Linked Group 1) 1 tablet, Oral, EVERY 4 HOURS PRN, Pain, Starting on Wed07/15/20 at 1221, Until Wed07/15/20 at 1717, for MILD Pain (1 - 3) May be given in conjunction with acetaminophen or ketorolac if ordered 1246 (See Alternativ e - Provider: Irma Pro RN) oxyCODONE-acetaminophen (Percocet) 5-325 mg per tablet 2 tablet(Linked Group 1) 2 tablet, Oral, EVERY 4 HOURS PRN, Pain, Starting on Wed07/15/20 at 1221, Until Wed07/15/20 at 1717, for MODERATE pain (4 - 7) 1246 (Given - Provid er: Irma Pro RN) sodium chloride 0.9 % (flush) flush 5-20 mL 5-20 mL, Intravenous, EVERY 1 MIN PRN, Starting on Wed07/15/20 at 1221, Until Wed07/15/20 at 1717, flush, Flush pertains to all indwelling lines. Flush per protocol found in the job aid using the link provided on this medication record., Routine Linked Groups Order Group 1: oxyCODONE-acetaminophen (Percocet) 5-325 mg per tablet 1 tabletJump to med 1 tablet, Oral, EVERY 4 HOURS PRN, Pain, Starting on 07/15/20 at 1221, Until 07/15/20 at 1717, for MILD Pain (1 - 3) May be given in conjunction with acetaminophen or ketorolac if ordered Or oxyCODONE-acetaminophen (Percocet) 5-325 mg per tablet 2 tabletJump to med 2 tablet, Oral, EVERY 4 HOURS PRN, Pain, Starting on Wed07/15/20 at 1221, Until Wed07/15/20 at 1717, for MODERATE pain (4 - 7) documented in this encounter Care Teams Fisher Scallop Relationship Specialty Start Date End Date Angel Luis Batista MD [address] [place] [address] PCP - General 04/08/10 11/18/21 documented as of this encounter
--- OUTSIDE RECORDS SUMMARY | 2024-06-20 16:04 | XMS_ITS | Encounter Summary ---
Author Organization [facility] [place] [address] Care Team Providers Care Project Developer Name Role Phone Angel Luis Batista MD Primary Care Provider + [phone] Encounter Details Date Type Department Care Team (Late st Contact Info) Description 06/25/2020 Telephone Primary Care at [facility] [place] [id number] Mel Schrader RN Social History Tobacco Use Types Packs/Day [...] as of this encounter Miscellaneous Notes * Addendum Note - Mel Schrader RN - 06/26/2020 10:13 AM ESTAddended by: MEL SCHRADER on: 06/26/2020 10:13 AM Modules accepted: Orders * Telephone Encounter - Mel Schrader RN - 06/25/2020 4:27 PM EST Pt called back, he is going to go to [facility] and try to get tested there, if he can't he will call us back. * Telephone Encounter - Mel Schrader RN - 06/25/2020 2:22 PM EST Message left on patients machine to call back to schedule 07/11 documented in this encounter Plan of Treatment Not on file documented as of this encounter Visit Diagnoses Diagnosis Encounter for preprocedure screening laboratory testing for COVID-19 documented in this encounter Care Teams Project Developer Relationship Specialty Start Date End Date Angel Luis Batista MD [address] [place] [address] PCP - General 04/08/10 11/18/21 documented as of this encounter
--- OUTSIDE RECORDS SUMMARY | 2024-06-20 16:04 | XMS_ITS | Encounter Summary ---
Author Organization [facility] [place] [address] Care Team Providers Care District Plant Supervisor Name Role Phone Angel Luis Batista MD Primary Care Provider + [phone] Reason for Referral * Diagnostic Test (Routine) - Closed Specialty Diagnoses / Procedures Referred By Contac t Referred To Contact Radiology Diagnoses Chronic left-sided low back pain with left-sided sciatica Procedures MRI Lumbar Spine wo Contrast (Generic) Marta Rasheed MD [facility] [place] [address] [place] [address] Referral ID Status Reason Start Date Expiration Date V isits Requested Visits Authorized [id number] Closed Specialty Service Requested 08/24/2017 11/22/2017 1 1 Reason for Visit * Reason Comments Pain Management lumbar back pain * Consultation (Routine) - Specialty Diagnoses / Procedures Referred By Contac t Referred To Contact Pain Management Diagnoses lumbar back pain [place], [place]ERRA [address] [place] [address] [facility] [address] [place] [address] Referral ID Status Reason Start Date Expiration Date V isits Requested Visits Authorized [id number] Consult, Test & Treat Connection Center 06/03/2017 06/03/2018 1 1 Encounter Details Date Type Department Care Team (Late st Contact Info) Description 08/03/2017 11:00 AM EDT Office [place] [address] Marta Rasheed MD [facility] [place] [address] Chronic left-sided low back pain with left-sided sciatica; Disorder of sacrum Social History Tobacco Use Types Packs/Day Years [...] Sign Reading Time Taken Comments Blood Pressure 134/94 08/03/2017 11:02 AM EDT Pulse 79 08/03/2017 11:02 AM EDT Temperature - - Respiratory Rate - - Oxygen Saturation 99% 08/03/2017 11:02 AM EDT Inhaled Oxygen Concentration - - Weight 101.2 kg (223 lb) 08/03/2017 11:02 AM EDT Height - - Body Mass Index - - documented in this encounter Progress Notes * Marta Rasheed MD - 08/03/2017 11:00 AM EDT PAIN CLINIC CONSULTATION Date of Consultation: August 03, 2017 I am seeing Mr. Mann at the request of Mari Hill for my opinion and recommendations regarding back pain. Chief Complaint: Left low back pain, upper buttock pain, LE pain HPI: Subjective Kyree Mann is a 52 y.o. male s/p L5-S1 posterior lateral fusion who presents today for evaluation of Left low back pain, upper buttock pain, LE pain. The history is obtained from the patient, and I have reviewed medical records provided by the referring physician and located in the electronic medical record to fill in gaps in the patient's recollection of events, treatments and outcomes. The patient has had symptoms since before his surgery. The surgery never relieved the back pain; itdid help LE symptoms. The patient denies any specific inciting incident that led to surgery or recurrence of symptoms. The left LE symptoms started about four months ago. He has had left low back pain for many years. He does see a chiropractor regularly, which has been helpful in the past; it is nolonger helping. He has not had surgical reevaluation. He had interventional pain procedures prior to his surgery, but states it was a terrible experience and will never do it again. The patient has not had any imaging. LOCATION: Left low back pain, upper buttock pain, LE pain. ASSOCIATED SYMPTOMS: left radiation in a lateral distribution in the thigh, leg, into the foot. (lateral and dorsum) PAIN DESCRIPTION: burning or tingling PRESENT: all of the time. PAIN INCREASED BY: prolonged sitting, standing, lying down, activity in general. PAIN DECREASED BY: nothing in particular. PAIN LEVEL 08/03/2017 AT REST 7 WORST over past week 7 BEST over past week 7 AVERAGE over past week 7 TREATMENTS/INTERVENTIONS CURRENT DATE HELPFUL? TRIALED DATE HELPFUL? NOT TRIALED PT x not for about 10 years chiropractic x TENS PROCEDURES/SURGERY TYPE DATE HELPFUL? NOT TRIALED 1. L5-S1 posterior lateral fusion. 2. Iliac crest bone grafting. 3. Allograft bone placement. 08/24/05 EVALUATIONS: TESTING: MEDICATIONS: CURRENT HELPFUL? TRIALED HELPFUL? 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 Does not exercise. Treatment Goals: -return to [employer], doing work outdoors Mental Health: OPIOID RISK ASSESSMENT OPIOID RISK TOOL Female Male 1. Family history of Substance Abuse Alcohol [] 1 [] 3 Illegal Drugs [] 2 [] 3 Prescription Drugs [] 4 [] 4 2. Personal History of Substance Abuse Alcohol [] 3 [] 3 Illegal Drugs [] 4 [] 4 Prescription Drugs [] 5 [] 5 3. Age (jared box if 16-45) [] 1 [] 1 4. History of Preadolescent Sexual Abuse [] 3 [] 0 5. Psychological Disease Attention Deficit Disorder, Obsessive Compulsive D/o, Bipolar, Schizophrenia [] 2 [] 2 Depression [] 1 [] 1 TOTAL: 1 Comments about ORT in relation to this patient: Opioid Risk Category: low risk 0-3 Total Score Risk Category: 0-3 = Low Risk 4-7 = Moderate Risk > 8 = High Risk Suicide/Homicide Risks Suicidal ideations No Suicidal plans No Homicidal ideations No Previous prescribers (Also see Patient Care Team section) Medical records reviewed? Worrisome findings? Other significant history History of DUI or DWI? No History of incarceration? No History of discharge from another pain provider? No History of an inconsistent Urine Drug Screen? No Current use of a benzodiazepine? No Current use of other REFRACTORY FURNACE DESIGNER depressant? No Current diagnosis of Obstructive Seep Apnea? Yes CPAP use: Yes Repeated visits to acute care facilities of other care facilities seeking opioids? No Current ? No Repeated visits to urgent care facilities and/or emergency departments seeking opioids? No Evidence or risk of significant adverse events including falls or fractures? No Are you now or in past received methadone or suboxone (buprenorphine) from a clinic? No Ever participated in drug or alcohol rehabilitation program? No Share your pain medications or accept medications from family/friends? No Storage of opioids-locked? n/a ETOH use/ h/o abuse Yes/No Illicit drug use/abuse No MJ use No [place] & [place] Prescription Drug Monitoring Program data reviewed? Yes 08/03/2017 Inconsistencies? No Urine drug screen ordered? No Adult Chronic Opioid Consent and Agreement signed? No Opioids prescribed? No Naloxone rx offered? No Prescribed? (instructions given) No (No) No flowsheet data found. PAST MEDICAL HISTORY: Past Medical History: Diagnosis Date ??? Alopecia totalis ??? Asthma ??? Depression ??? Microscopic hematuria ??? Sleep apnea with use of continuous positive airway pressure (CPAP) PAST SURGICAL HISTORY: History reviewed. No pertinent surgical history. ALLERGIES: Canine protein containing products MEDICATIONS: Medications 08/03/17 1119 Medication Sig Taking? PROAIR HFA 90 mcg/actuation HFA Aerosol Inhaler inhale 2 puffs by mouth four times a day if needed Yes busPIRone (BUSPAR) 15 mg Tablet 15 mg daily. Yes diclofenac (SOLARAZE) 3 % Gel daily. Yes DULoxetine (CYMBALTA) 60 mg Capsule, Delayed Release(E.C.) take 1 capsule by mouth once daily Yes lisinopril (PRINIVIL;ZESTRIL) 10 mg Tablet take 1 tablet by mouth once daily Yes CIS Free Text Med - Albuterol Yes multivitamin (THERAGRAN) tablet Yes acetaminophen (TYLENOL EXTRA STRENGTH) 500 mg tablet Yes FAMILY HISTORY: Family History Problem Relation Age of Onset ??? Hypertension Mother ??? Arthritis Mother ??? Alcohol Abuse Neg Hx ??? Substance Abuse Neg Hx SOCIAL HISTORY: Social History Social History ??? Marital status: Spouse name: N/A ??? Number of children: N/A ??? Years of education: N/A Occupational History ??? Not on file. Social History Main Topics ??? Smoking status: Current Some Day Smoker ??? Smokeless tobacco: Never Used Comment: mini cigars ??? Alcohol use Yes Comment: one drink per week ??? Drug use: No Comment: denies h/o illicit drug use or abuse ??? Sexual activity: Not on file Other Topics Concern ??? Not on file Social History Narrative ??? No narrative on file ROS: Review of Systems Constitutional: Negative. HENT: Negative. Eyes: Negative. Respiratory: Positive for shortness of breath and wheezing. Cardiovascular: Negative. Gastrointestinal: Negative. Genitourinary: Positive for hematuria. Musculoskeletal: Positive for back pain. Skin: Negative. Neurological: Negative for dizziness, syncope, light-headedness and headaches. Hematological: Negative. Psychiatric/Behavioral: Positive for dysphoric mood and sleep disturbance. Negative for suicidal ideas. The patient is nervous/anxious. PHYSICAL EXAM: BP (!) 134/94 Pulse 79 Wt 101.2 kg (223 lb) SpO2 99% Physical Exam Constitutional: He appears well-developed and well-nourished. HENT: Head: Normocephalic. Eyes: EOM are normal. Cardiovascular: Normal rate, regular rhythm and normal heart sounds. Exam reveals no friction rub. No murmur heard. Pulmonary/Chest: Effort normal and breath sounds normal. Skin: Skin is warm and dry. Psychiatric: He has a normal mood and affect. His behavior is normal. Judgment and thought content normal. LUMBAR SPINE EXAMINATION: Inspection: Scar: Yesconsistent with stated surgery; Scoliosis: No; Obvious rash or infection: No Gait:normal gait and station Range of motion: unrestricted with lumbar spine flexion, extension Left Right Muscle spasm/pain No No Sacroiliac joint tenderness Yes No Facet joint tenderness VERY MILD No Camacho's test (facet loading) Negative Negative Paraspinous region tenderness VERY MILD No Heel walk Normal Normal Toe walk Normal Normal Straight leg raise negative negative HIP EXAMINATION: Left Right Range of motion unrestricted with internal and external rotation. unrestricted with internal and external rotation. Groin pain with range of motion? Negative Negative SI JOINT EXAMINATION: Left Right Compression not tested not tested SOPHIE positive negative See Finger Test positive} negative Motor: Segment Muscle Action R L L3 Quadriceps Knee extension 5 /5 5/5 L4,5 Hamstring Knee Flexion 5/5 5 /5 L4 Tibialis anterior Dorsiflexion 5/5 5 /5 L5 Extensor hallucis Great toe extension 5/5 5 /5 S1 Gastrocnemius, FHL Plantar flexion 5/5 5/5 Hip ADduction 5/5 5/5 Hip ABduction 5/5 5/5 * exam limited by pain Reflexes: Segment Tendon LEFT RIGHT L3-4 Patella 2+ 2+ S1 Ankle 2+ 2+ Sensory: Light Touch (0=absent, 1-impaired, 2=normal) Segment location Right Left L1 upper inner thigh 2 2 L2 mid-ant thigh 2 2 L3 med femoral condyle 2 2 L4 medial mal 2 2 L5 dorsum foot, 3rd MT 2 2 S1 lat heel 2 2 S2 Popliteal fossa 2 2 RADIOLOGIC DATA: NO RECENT IMAGING ASSESSMENT: Assessment 1. Chronic left-sided low back pain with left-sided sciatica 2. Disorder of sacrum The patient has had ongoing low back pain prior to and since lumbar fusion in 2005. He had bilateral LE pain before the fusion, which improved. He has had a recurrence of LE pain over the past 4 months. The patient has not had surgical reevaluation or any imaging in many years. We discussed obtaining lumbar spine plain films and MRI. He appears to have radiculitis, but there are no neurologic deficits on exam. Additionally, he may have a component of SI joint mediated pain. He has a positive sophie's test and tenderness in the PSIS region on the left, consistent with current symptoms. We also discussed the option of left SI joint injection. The patient's provider had questioned treating the facet joints, but I do not see this as a predominant nociceptive generator. The plan we delineated was to get imaging first and then consider treatment options. This may include interventional pain procedures; the patient is willing to reconsider this. I do not have any pharmacologic recommendations at this time, except for possibly Neurontin, which the patient has not tried for this newer radicular pain. This will be deferred for now. PLAN: 1. Lumbar spine plain films 2. Lumbar MRI 3. Follow up with Dr. Rasheed after MRI (MRI can be the same day as follow up) Thank you for the opportunity to participate in Kyree Mann's care. Please feel free to contact me with any questions. Sincerely, Marta Rasheed MD Chemical Process Analyst of [facility] [address] [address] [facility] documented in this encounter Plan of Treatment Not on file documented as of this encounter Results * MRI Lumbar Spine [...] in context of the clinical situation (Reference- Jarvik et al, Spine 2001). Findings: (Prevalence in [...] (GENERIC) CLINICAL HISTORY: s/p lumbar fusion in 2006, new left LE radicular pain,lateral thigh and [...] the clinical situation (Reference- Davidvik et al, [id number]). Findings: (Prevalence in patients without low back pain), discdegeneration (decreased T2 signal, height loss, bulge) (91%), disc T2-signal loss(83%), disc height loss (56%), disc bulge (64%), disc protrusion (32%), annularfissure (38%). Marta Rasheed MD IM MRI ORDERABLES * XR Lumbar Spine Min 4 view [...] at L4-5 has worsenedwhen compared to the 2005 examination. The alignment is unchanged. There isan apparent retrolisthesis due to the pronounced anterior displacement of theL5 body. No acute injury is identified. IMPRESSION L5 spondylolysis with grade 2 spondylolisthesis. No appreciable change in alignment with flexion and extension. Marta Rasheed MD IMG DX ORDERABLES documented in this encounter Visit Diagnoses Diagnosis Chronic left-sided low back pain with left-sided sciatica Disorder of sacrum Disorders of sacrum Chronic left-sided low back pain with left-sided sciatica Chronic left-sided low back pain with left-sided sciatica documented in this encounter Care Teams District Plant Supervisor Relationship Specialty Start Date End Date Angel Luis Batista MD [address] [address] PCP - General 04/08/10 11/18/21 documented as of this encounter
--- OUTSIDE RECORDS SUMMARY | 2024-06-20 16:04 | XMS_ITS | Encounter Summary ---
Author Organization [facility] [place] [address] Care Team Providers Care Skoog Machine Operator Name Role Phone Angel Luis Batista MD Primary Care Provider + [phone] Encounter Details Date Type Department Care Team (Late st Contact Info) Description 02/16/2020 Ancillary Procedure Radiology at [facility] [address] [place] [id number] Neel Bentley MD [address] [facility] [place] [address] Social History Tobacco Use Types Packs/Day Years [...] Associated Diagnosis Comments FILM LIBRARY STORAGE ONLY CT SPINE Routine 02/16/2020 12:00 AM EDT documented in this encounter Results * Film Library- Storage Only CT Spine (02/16/2020 12:00 AM EDT) Narrative FLEX - 02/22/2020 11:23 AM EDT This exam is auto-finalizing. It's purpose is for storage only. Neel Bentley MD G FILM LIBRARY ORD ERABLES DH RAD [place], [place] documented in this encounter Visit Diagnoses Not on filedocumented in this encounter Care Teams Skoog Machine Operator Relationship Specialty Start Date End Date Angel Lius Batista MD [address] [place] [address] PCP - General 04/08/10 11/18/21 documented as of this encounter
--- OUTSIDE RECORDS SUMMARY | 2024-06-20 16:04 | XMS_ITS | Encounter Summary ---
Author Organization [facility] [place] [address] Care Team Providers Care Pipefitter Name Role Phone Angel Luis Batista MD Primary Care Provider + [phone] Reason for Visit * Auth/Cert Specialty Diagnoses [...] SPINE SURGERY ONLY; MORSELIZED (WRVU *) MODIFIER [address] Referral ID Status Reason Start Date Expiration Date Visits Re quested Visits Authorized [id number] 1 1 Encounter Details Date Type Department Care Team (Late st Contact Info) Description 07/15/2020 7:20 AM EST Ancillary Procedure Radiology Xray at [facility] [place] [phone] Social History Tobacco Use Types Packs/Day Years [...] OR USE Routine 07/15/2020 9:50 AM EST documented in this encounter Results * XR Fluoro No Rad <1Hr - OR Use (07/15/2020 9:50 AM EST) Narrative RAD - 07/15/2020 9:50 AM EST This exam is auto-finalizing. No interpretation was done. Gladis Alvarado MD IMG FLUORO DOUGLAS BURNETTS Performing Organization Address City/State/[facility] Co de Phone Number [place], [place] documented in this encounter Visit Diagnoses Not on filedocumented in this encounter Care Teams Pipefitter Relationship Specialty Start Date End Date Angel Luis Batista MD [address] [place] [address] PCP - General 04/08/10 11/18/21 documented as of this encounter
--- OUTSIDE RECORDS SUMMARY | 2024-06-20 16:04 | XMS_ITS | Encounter Summary ---
Author Organization [facility] [place] [address] Care Team Providers Care Carton Filler Name Role Phone Angel Luis Batista MD Primary Care Provider + [phone] Encounter Details Date Type Department Care Team (Late st Contact Info) Description 06/23/2021 2:30 PM EST Ancillary Procedure Radiology Library at [facility] [place] G[place]rez [address] Angel Luis Batista MD [address] [place], [place] [address] Social History Tobacco Use Types Packs/Day Years [...] FILM LIBRARY STORAGE ONLY DX SPINE Routine 06/23/2021 2:27 PM EST documented in this encounter Results * Film Library- Storage Only DX Spine (06/23/2021 2:27 PM EST) Narrative FLEX - 06/23/2021 2:27 PM EST This exam is auto-finalizing. It's purpose is for storage only. Angel Luis Batista MD IMG FILM LIBRARY ORD ERABLES [place], [place] documented in this encounter Visit Diagnoses Not on filedocumented in this encounter Care Teams Carton Filler Relationship Specialty Start Date End Date Angel Luis Batista MD [address] [place] [address] PCP - General 04/08/10 11/18/21 documented as of this encounter
--- OUTSIDE RECORDS SUMMARY | 2024-06-20 16:04 | XMS_ITS | Encounter Summary ---
Author Organization [facility] [place] [address] Care Team Providers Care Personnel Generalist Manager Name Role Phone Angel Luis Batista MD Primary Care Provider + [phone] Encounter Details Date Type Department Care Team (Late st Contact Info) Description 04/03/2020 Ancillary Procedure Radiology at [facility] [address] [place] [phone] Gladis Alvarado MD [facility] [place] [address] Social History Tobacco Use Types Packs/Day Years [...] FILM LIBRARY STORAGE ONLY MR SPINE Routine 04/03/2020 12:00 AM EST documented in this encounter Results * Film Library- Storage Only MR Spine (04/03/2020 12:00 AM EST) Narrative FLEX Asher 04/08/2020 11:32 AM EST This exam is auto-finalizing. It's purpose is for storage only. Gladis Alvarado MD IMG FILM LIBRARY ORDERABLES [place], [place] documented in this encounter Visit Diagnoses Not on filedocumented in this encounter Care Teams Personnel Generalist Manager Relationship Specialty Start Date End Date Angel Luis Batista MD [address] [place] [address] PCP - General 04/08/10 11/18/21 documented as of this encounter
--- OUTSIDE RECORDS SUMMARY | 2024-06-20 16:04 | XMS_ITS | Encounter Summary ---
Author Organization [facility] [place] [address] Care Team Providers Care Practice Consultant Name Role Phone Angel Luis Batista MD Primary Care Provider + [phone] Reason for Visit * Reason Onset Date Comments Pre Procedure Call 07/01/2020 Encounter Details Date Type Department Care Team (Late st Contact Info) Description 07/01/2020 Telephone Primary Care at [facility] [address] [facility] [place] [address] Michelle Camacho RN Pre Procedure Call Social History Tobacco Use Types Packs/Day Years [...] encounter Miscellaneous Notes * Telephone Encounter - Michelle Camacho RN - 07/01/2020 2:22 PM EST Called patient and informed him that order was faxed to [facility] and they should be calling him. Recommended that he contact them to confirm that they are planning to test him preoperatively. Pt verbalized understanding. LZRN * Telephone Encounter - Michelle Camacho RN - 07/01/2020 2:19 PM EST Pt called to inquire about preop covid testing requisition for [facility] so that patient does not have to travel to [place] just for test. I informed patient that I would reach out to the Mel [facility] for more information and that I would call him back with said information. Pt verbalized understanding. LZRN documented in this encounter Plan of Treatment Not on file documented as of this encounter Visit Diagnoses Not on filedocumented in this encounter Care Teams Practice Consultant Relationship Specialty Start Date End Date Angel Luis Batista MD [address] [place] [address] PCP - General 04/08/10 11/18/21 documented as of this encounter
--- OUTSIDE RECORDS SUMMARY | 2024-06-20 16:04 | XMS_ITS | Encounter Summary ---
Author Organization [facility] [place] [address] Care Team Providers Care Eyeglass Inspector Name Role Phone Angel Luis Batista MD Primary Care Provider + [phone] Encounter Details Date Type Department Care Team (Late st Contact Info) Description 10/09/2020 Ancillary Procedure Radiology at [facility] [address] [place] [phone] Gladis Alvarado MD [address] [place] [address] Social History Tobacco Use Types Packs/Day Years [...] FILM LIBRARY STORAGE ONLY DX SPINE Routine 10/09/2020 12:00 AM EDT documented in this encounter Results * Film Library- Storage Only DX Spine (10/09/2020 12:00 AM EDT) Narrative FLEX - 10/10/2020 12:21 PM EDT This exam is auto-finalizing. It's purpose is for storage only. Gladis Alvarado MD IMG FILM LIBRARY ORDERABLES DH [place], [place] documented in this encounter Visit Diagnoses Not on filedocumented in this encounter Care Teams Eyeglass Inspector Relationship Specialty Start Date End Date Angel Luis Batista MD [address] [place] [address] PCP - General 04/08/10 11/18/21 documented as of this encounter
--- OUTSIDE RECORDS SUMMARY | 2024-06-20 16:04 | XMS_ITS | Encounter Summary ---
Author Organization [facility] [place] [address] Care Team Providers Care Farm Equipment Technician Name Role Phone Angel Luis Batista MD Primary Care Provider + [phone] Encounter Details Date Type Department Care Team (Late st Contact Info) Description 07/11/2020 External Results Pre-Admission Testing at [facility] [address] [place] [phone] Social History Tobacco Use Types Packs/Day Years [...] Date/Time Associated Diagnosis Comments LAB SCAN Routine 07/11/2020 documented in this encounter Results * Scan Doc: Lab (07/11/2020) Historical Provider MD MOODY MGR SCAN EX T ORDR/RSLT documented in this encounter Visit Diagnoses Not on filedocumented in this encounter Care Teams Farm Equipment Technician Relationship Specialty Start Date End Date Angel Luis Batista MD [address] [place] [address] PCP - General 04/08/10 11/18/21 documented as of this encounter
--- OUTSIDE RECORDS SUMMARY | 2024-06-20 16:04 | XMS_ITS | Encounter Summary ---
Author Organization [facility] Address [facility] [place] [address] Care Team Providers Care Coffee Taster Name Role Phone Angel Luis Batista MD Primary Care Provider + [phone] Reason for Visit * Auth/Cert Specialty Diagnoses [...] SPINE SURGERY ONLY; MORSELIZED (WRVU *) MODIFIER [address] Referral ID Status Reason Start Date Expiration Date Visits Re quested Visits Authorized [id number] 1 1 Encounter Details Date Type Department Care Team (Late st Contact Info) Description 07/15/2020 7:30 AM EST - 07/15/2020 9:48 AM EST Surgery Operating Room [facility] [address] [place] [phone] Gladis Alvarado MD [address] [place] [address] ARTHRODESIS, ANT INTERBODY,DECOMPRESSIO N; CERVICAL BELOW C2 (WRVU 25) Social History Tobacco Use Types Packs/Day Years [...] Sign Reading Time Taken Comments Blood Pressure 95/59 07/15/2020 9:45 AM EST Pulse 81 07/15/2020 9:45 AM EST Temperature 36.1 ??C (97 ??F) 07/15/2020 9:40 AM EST Respiratory Rate 16 07/15/2020 9:45 AM EST Oxygen Saturation 96% 07/15/2020 9:45 AM EST Inhaled Oxygen Concentration - - Weight 104.3 kg (230 lb) 07/15/2020 6:40 AM EST Height 172.7 cm (5' 8) 07/15/2020 6:40 AM EST Body Mass Index 34.97 07/15/2020 6:40 AM EST documented in this encounter Discharge Instructions * Patient Instructions* Suly Rosenbaum PA - 07/15/2020 7:01 AM EST Full recovery will depend on your having a strong, positive attitude, setting small goals for improvement and working steadily to accomplish each goal. FOLLOW UP APPOINTMENTS: You will be scheduled for a follow-up appointment four to six weeks after surgery with a Physician???s Farm Supervisor at the surgeon???s office. You will be [...] to stop taking it. ??? Only take otus-cfi-davkpmo or prescription medicine for pain, discomfort or [...] 911. If you have questions, please call [facility] at [phone], during business hours of Wednesday through Wednesday from 8:00 a.m. until 4:00 p.m. In case of emergency during non-business hours, please call the same main number and follow the prompts to page the neurosurgeon rehabilitation psychologist. SMOKING CESSATION INFORMATION: ??? [place] QUITLINE: ??? [place] QUITLINE: ??? [email or web address] If you smoke, stop now! Smoking may impede healing. MAKE SURE YOU: ??? Understand these instructions. ??? Will seek medical care if you are feeling poor, or get worse. ??? Will call the surgeon???s office with any questions or concerns at : [phone] documented in this encounter Medications at Time [...] Alvarado MD - 07/15/2020 8:00 AM EST [facility] Operative Note [facility] [address] [place] [address] Patient Name: Kyree Mann : [id number] MR#: [id number] Case Date: 07/15/2020 Case Scheduled Time: 0730 Surgeon: Surgeon(s) and Role: * Gladis Alvarado MD - Primary * Suly Rosenbaum PA - Physician Farm Supervisor Preoperative diagnosis: Cervical Disc Disease Postoperative diagnosis: [...] 5 6 and C6-7 with DBM and [place] Anesthesia: General Findings: Stenosis of the C 6 and C7 foramina bilaterally due to disc osteophyte complexes. There is also a disc herniation at the C 5-6 level into the C6 foramen. Excellent decompression was obtained at both levels on both sides. No CSF leak. Nerves intact. An 8 mm [place] was tapped into each interspace and secured [...] protect the carotid on the right. The [place] screws were placed into the vertebral bodies [...] removing the disc osteophyte complexes posteriorly. The [place] is then sized appropriately and filled with DBM and to tapped into each interspace under fluoroscopic guidance. Three 14 mm screws are then placed appropriately securing the [place] in place. [place] screws have been removed. Fluoroscopic confirmation obtained. The [place] retractor was then removed and the platysma muscles reapproximated with 3-0 Vicryl running suture with inverted 3-0 Vicryl in the subcutaneous tissue with Dermabond to seal the skin. The patient was then awakened from anesthesia and taken in stable condition to the PACU unit having tolerated the procedure well. The rn medical surgical, (), Suly RODRIGUEZ worked under my direction for the duration of the operative session. The contact center assistant adequately prepped the operative site and maintained the best possible exposure of anatomy incident to the procedure. () worked under my direction for the duration of the operative session. The contact center assistant adequately prepped the operative site and maintained the best possible exposure of anatomy incident to the procedure. Gladis Alvarado MD 07/15/2020 documented in this encounter Plan of Treatment Not on file documented as of this encounter Procedures Procedure Name Priority Date/Time Associated Diagnosis Comments XR FLUORO NO RAD <1HR - OR USE Routine 07/15/2020 9:50 AM EST MODIFIER MARIO SPINE - [place] 07/15/2020 7:35 AM EST Cervical Disc Disease Allograft For Spine Surgery Only Morselized (21316) 07/15/2020 7:35 AM EST Cervical Disc Disease Insert Biomchn Dev Intervertebral Dsc Spc W/Arthrd (70410) 07/15/2020 7:35 AM EST Cervical Disc Disease Arthrd Ant Interdy Cervcl Belw C2 Ea Addl Ntrsp (15327) 07/15/2020 7:35 AM EST Cervical Disc Disease Arthrodesis, Ant Interbody,Decompression ; Cervical Below C2 (84848) 07/15/2020 7:35 AM EST Cervical Disc Disease IMPLANTABLE DEVICES SCAN 07/15/2020 12:00 AM EST documented in this encounter Results * XR Fluoro No Rad <1Hr - OR Use (07/15/2020 9:50 AM EST) Narrative DH RAD - 07/15/2020 9:50 AM EST This exam is auto-finalizing. No interpretation was done. Gladis Alvarado MD IMG FLUORO ORDERA BLES DH CASSIE Padron * SCAN DOC: IMPLANTABLE DEVICES (07/15/2020 12:00 AM EST) Unknown MEDIA MGR SCAN EXT O RDR/RSLT documented in this encounter Visit Diagnoses Not on filedocumented in this encounter Admitting Diagnoses Diagnosis Cervical [...] 1156, Day of Surgery (Day of Procedure) 07 (New Bag - Prov ider: Michelle Thapa RN)0903 (Paused - Provider: Raman Rosen CRNA - Comment: Switch to gravity)0904 (New Bag - Provider: Raman Rosen CRNA)1158 [...] 7) documented in this encounter Care Teams Coffee Taster Relationship Specialty Start Date End Date Angel Luis Batista MD [address] [place] [address] PCP - General 04/08/10 11/18/21 documented as of this encounter
--- OUTSIDE RECORDS SUMMARY | 2024-06-20 16:04 | XMS_ITS | Encounter Summary ---
Author Organization [facility] [place] [address] Care Team Providers Care Delivery Motorcycle Driver Name Role Phone Angel Luis Batisat MD Primary Care Provider + [phone] Encounter Details Date Type Department Care Team (Late st Contact Info) Description 02/16/2020 12:05 AM EDT Ancillary Procedure Radiology at [facility] [address] [place] [phone] Neel Bentley MD [address] [place] [address] Social History Tobacco Use Types Packs/Day Years [...] LIBRARY STORAGE ONLY CT SPINE Routine 02/16/2020 12:05 AM EDT documented in this encounter Results * Film Library- Storage Only CT Spine (02/16/2020 12:05 AM EDT) Narrative FLEX - 02/22/2020 11:24 AM EDT This exam is auto-finalizing. It's purpose is for storage only. Neel Bentley MD IMG FILM LIBRARY ORD ERABLES [place], [place] documented in this encounter Visit Diagnoses Not on filedocumented in this encounter Care Teams Delivery Motorcycle Driver Relationship Specialty Start Date End Date Angel Luis Batista MD [address] [place] [address] PCP - General 04/08/10 11/18/21 documented as of this encounter
--- OUTSIDE RECORDS SUMMARY | 2024-06-20 16:04 | XMS_ITS | Encounter Summary ---
Author Organization [facility] [address] Care Team Providers Care Membership Sales Manager Name Role Phone Angel Luis Batista MD Primary Care Provider + [phone] Encounter Details Date Type Department Care Team (Late st Contact Info) Description 07/08/2020 10:30 AM EST Telephone Pre-Admission Testing at [facility] [place] [phone] Social History Tobacco Use Types Packs/Day Years [...] as of this encounter Progress Notes * Pop Plasencia RN - 07/08/2020 10:59 AM ESTSummary: covid screen EXPOSURE: Have you been in contact with anyone suspected of or confirmed to have COVID-19 in the PAST 14 DAYS? []Yes [x]No Have you traveled outside the [facility] in the PAST 14 DAYS? []Yes [x]No COVID-19 SCREENING: In the past 14 days, have you had any of the following symptoms: [] Fever (subjective or documented fever) [] Chills [] Cough [] Shortness of breath or difficulty breathing [] Fatigue [] Muscle or body aches [] Headache [] New loss of taste or smell [] Sore throat [] Nausea or vomiting [] Diarrhea [x]NONE OF THE ABOVE documented in this encounter Plan of Treatment Not on file documented as of this encounter Visit Diagnoses Not on filedocumented in this encounter Care Teams Membership Sales Manager Relationship Specialty Start Date End Date Angel Luis Batista MD [address] [place] [address] PCP - General 04/08/10 11/18/21 documented as of this encounter
--- OUTSIDE RECORDS SUMMARY | 2024-06-20 16:04 | XMS_ITS | Encounter Summary ---
Author Organization [facility] [place] [address] Care Team Providers Care Pantry Attendant Name Role Phone Angel Luis Batista MD Primary Care Provider + [phone] Reason for Referral * Surgical (Routine) - Closed Specialty Diagnoses / Procedures Referred By Flip t Referred To Contact Orthopaedics Diagnoses Foraminal stenosis of lumbar region Lumbar post-laminectomy syndrome Marta Rasheed MD [facility] [place] [address] [facility] [address] [place] [address] Referral ID Status Reason Start Date Expiration Date V isits Requested Visits Authorized [id number] Closed Consult, Test & Treat 08/31/2017 08/31/2018 1 1 Reason for Visit * Reason Comments Pain Management Encounter Details Date Type Department Care Team (Late st Contact Info) Description 08/31/2017 11:00 AM EDT Office [place] [phone] Marta Rasheed MD [facility] [place] [address] Foraminal stenosis of lumbar region; Lumbar post-laminectomy syndrome Social History Tobacco Use Types Packs/Day Years [...] Sign Reading Time Taken Comments Blood Pressure 132/91 08/31/2017 10:42 AM EDT Pulse 89 08/31/2017 10:42 AM EDT Temperature - - Respiratory Rate - - Oxygen Saturation 99% 08/31/2017 10:42 AM EDT Inhaled Oxygen Concentration - - Weight 99.8 kg (220 lb) 08/31/2017 10:42 AM EDT Height - - Body Mass Index - - documented in this encounter Patient Instructions * Patient Instructions* Marta Rasheed MD - 08/31/2017 11:00 AM EDT Neurontin (Gabapentin) 100 mg Tablets Day # AM Dose Noon Dose PM Dose 1-3 None None 1 4-6 1 None 1 7-9 1 1 1 10-12 1 1 2 13-15 2 1 2 16-18 2 2 2 19-21 2 2 3 22-24 3 2 3 25-27 3 3 3 28-30 3 3 4 31-33 4 3 4 34-36 4 4 4 documented in this encounter Progress Notes * Marta Rasheed MD - 08/31/2017 11:00 AM EDT PAIN CLINIC REEVALUATION PATIENT NAME: Kyree Mann : 1965 DATE OF SERVICE: 08/31/2017 Date of Initial Evaluation in the Pain Clinic: 08/03/17 Date of most recent evaluation in the Pain Clinic: 08/03/17 Chief Complaint: Left low back pain, upper [...] symptoms. The left LE symptoms started about 5-6 months ago. He has had left low back painfor many years. He does see a chiropractor regularly, which has been helpful in the past; it is no longer helping. He has not had surgical reevaluation. He had interventional pain procedures prior tohis surgery, but states it was a terrible experience and will never do it again. The patient has not had any imaging. 08/31/2017: -the patient returns today to review imaging. LOCATION: Left low back pain, upper buttock pain, LE pain. ASSOCIATED SYMPTOMS: left radiation in a lateral distribution in the thigh, leg, into the foot. (lateral and dorsum) PAIN DESCRIPTION: burning or tingling PRESENT: all of the time. PAIN INCREASED BY: prolonged sitting, standing, lying down, activity in general. PAIN DECREASED BY: nothing in particular. PAIN LEVEL 08/03/2017 08/31/2017 AT REST 7 8 WORST over past week 7 8 BEST over past week 7 6 AVERAGE over past week 7 7 TREATMENTS/INTERVENTIONS CURRENT DATE HELPFUL? TRIALED DATE HELPFUL? NOT TRIALED PT x not for about 10 years chiropractic x TENS PROCEDURES/SURGERY TYPE DATE HELPFUL? NOT TRIALED 1. L5-S1 posterior lateral fusion. 2. Iliac crest bone grafting. 3. Allograft bone placement. Dr. Holland 08/24/05 EVALUATIONS: TESTING: MEDICATIONS: CURRENT HELPFUL? 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 Does not exercise. Treatment Goals: -return to [employer], doing work outdoors Mental Health: OPIOID RISK [...] a benzodiazepine? No Current use of other GUM MAKER depressant? No Current diagnosis of Obstructive Seep [...] Prescription Drug Monitoring Program data reviewed? Yes 08/31/2017 Inconsistencies? No Urine drug screen ordered? No Adult Chronic Opioid Consent and Agreement signed? No Opioids prescribed? No Naloxone rx offered? No Prescribed? (instructions given) No (No) No flowsheet data found. PAST MEDICAL HISTORY: Past Medical History: Diagnosis Date ??? Alopecia totalis ??? Asthma ??? Depression ??? Microscopic hematuria ??? Sleep apnea with use of continuous positive airway pressure (CPAP) PAST SURGICAL HISTORY: No past surgical history on file. ALLERGIES: Canine protein containing products MEDICATIONS: Medications 08/31/17 1041 Medication Sig Taking? PROAIR HFA 90 mcg/actuation [...] (TYLENOL EXTRA STRENGTH) 500 mg tablet Yes gabapentin (NEURONTIN) 100 mg Capsule Take 1 capsule by mouth 3 times daily. (follow instructions on the sheet given in the Pain Clinic) FAMILY HISTORY: Family History Problem Relation Age [...] ??? Not on file Social History Narrative ROS: Review of Systems Constitutional: Negative. HENT: Negative. Eyes: Negative. Respiratory: Positive for shortness of breath and wheezing. Cardiovascular: Negative. Gastrointestinal: Negative. Genitourinary: Positive for hematuria. Musculoskeletal: Positive for back pain. Skin: Negative. Neurological: Negative for dizziness, syncope, light-headedness and headaches. Hematological: Negative. Psychiatric/Behavioral: Positive for dysphoric mood and sleep disturbance. Negative for suicidal ideas. The patient is nervous/anxious. PHYSICAL EXAM: BP (!) 132/91 Pulse 89 Wt 99.8 kg (220 lb) SpO2 99% Physical Exam Constitutional: He [...] S2 Popliteal fossa 2 2 RADIOLOGIC DATA: EXAMINATION: XR LUMBAR SPINE MIN 4 VIEW 08/03/17 ?? CLINICAL HISTORY: low back pain, previous lumbar spine fusion, please assess for instability above the fusion (L5-S1) ?? TECHNIQUE: AP lateral and oblique views of the lumbar spine in addition, lateral views were acquired in flexion and extension. ?? COMPARISON: 02/19/2006 ?? FINDINGS: As seen on the previous study there our prominent bilateral pars defects at L5 associated with grade 2 spondylolisthesis. With flexion and extension I do not see an appreciable change in the degree of listhesis. ?? Additional disc degeneration and facet arthropathy at L4-5 has worsened when compared to the 2005 examination. The alignment is unchanged. There is an apparent retrolisthesis due to the pronounced anterior displacement of the L5 body. ?? No acute injury is identified. ?? IMPRESSION L5 spondylolysis with grade 2 spondylolisthesis. No appreciable change in alignment with flexion and extension. LUMBAR MRI 08/31/2017 ??NO REPORT IN [facility], MRI DONE THIS AM (08/31/2017) By my view, lumbar spondylolisthesis, foraminal stenosis at L5-S1, bilateral, small protrusion at L4-5, disc uncovering due to lishtesis at L5-S1. ASSESSMENT: Assessment 1. Foraminal stenosis of lumbar region 2. Lumbar post-laminectomy syndrome The patient has had ongoing low back pain prior to and since lumbar fusion [place] [address] Holland. He had bilateral LE pain before the fusion, which improved. He has had a recurrence of LE pain over the past 5 months. The patient had not had surgical reevaluation or any imaging in many years. Lumbar spine plain films and MRI were obtained and reviewed with the patient today. He has spondylolisthesis at L5-S1, pars defects, no movement with F/E on plain films. He has foraminal stenosis, bilateral at L5-S1 and disc uncovering. He appears to have radiculitis, but there are no neurologic deficits on exam. We discussed surgical reevaluation to determine if the listhesis is an effect of failureof the fusion. If there are no surgical considerations then alternatives could be considered. The patient states that he had a bad experience prior to surgery with interventional pain procedure and would prefer not to repeat this. We briefly discussed the option of Spinal Cord Stimulation, if thereare no surgical options. He may have an interest in this. DVD about Spinal Cord Stimulation was given to the patient. Additionally, he may have a component of SI joint mediated pain. He has a positive sophie's test andtenderness in the PSIS region on the left, consistent with current symptoms. We also discussed the option of left SI joint injection. The patient's provider had questioned treating the facet joints, but I do not see this as a predominant nociceptive generator. I do not have any pharmacologic recommendations at this time, except for possibly Neurontin, which the patient has not tried for this newer radicular pain. PLAN: 1. neurontin (follow instructions on the sheet given in the Pain Clinic) 2. Referral to Spine Center 3. Follow up with Dr. Rasheed after the Spine Center evaluation. 4. Future consideration can be given to Spinal Cord Stimulation, if you are not a surgical candidate. Thank you for the opportunity to participate in Kyree Mann's care. Please feel free to contact me with any questions. Sincerely, Marta Rasheed MD Shaper Set Up Operator of Anesthesiology [facility] [address] [address] / [facility] I spent 24 minutes of this 29 minute visit in coordination of care and counseling the patient regarding LE, LBP, as detailed above. documented in this encounter Plan of Treatment Scheduled Referrals Name Type Priority Associated Diagnoses Orde r Schedule Referral to Spine Center Outpatient Referral Routine Foraminal stenosis of lumbar region Lumbar post-laminectomy syndrome Ordered: 08/31/2017 documented as of this encounter Visit Diagnoses Diagnosis Foraminal stenosis of lumbar region Spinal stenosis, lumbar region, without neurogenic claudication Lumbar post-laminectomy syndrome Postlaminectomy syndrome, lumbar region documented in this encounter Care Teams Pantry Attendant Relationship Specialty Start Date End Date Angel Luis Batista MD [address] [place] [address] PCP - General 04/08/10 11/18/21 documented as of this encounter
[2024-06-20 22:39] LABS: PSA, Screening 0.7 ng/mL (<=3.5)
[2024-06-21 11:25] LABS: Fentanyl Scr w/Rfx Confirm Negative ng/mL (<1)
== END 2024-06-20 15:28 | disposition home or self-care (01) ==
LOC: NCHCN 15:27
PROVIDERS: PCP Nurse Practitioner Family; Visit Provider Nurse Practitioner Family
DX: R31.21 Asymptomatic microscopic hematuria (principal); I10 Essential (primary) hypertension; N18.32 Chronic kidney disease, stage 3b; E78.5 Hyperlipidemia, unspecified; M54.50 Low back pain, unspecified
CPT/HCPCS: 80048; 80307; 84153; 81003

== ENCOUNTER 2024-09-04 11:21 | Outpatient (CLI) | payer BC, SELFPAY ==
--- NOTE | 2024-09-04 08:00 | DI.RAD_ITS ---
Exam(s) XR KNEE RT 4V AP,LAT,KIM,PAT EXAM: XR KNEE RT 4V AP,LAT,KIM,PAT CLINICAL HISTORY: right knee pain. TECHNIQUE: 2D digital imaging was performed of the right knee. Four views obtained. Merchant, AP, la teral and PA tunnel views were obtained. COMPARISON: There are no priors for comparison. FINDINGS: BONES: No acute fracture is present. No bony destructive lesion is seen. JOINTS: The knee is normally aligned. There is a small joint effusion. SOFT TISSUE: Normal. IMPRESSION: Very small joint effusion. Otherwise unremarkable examination. DATA REPOSITORY: RADIATION DOSE DELIVERED:
== END 2024-09-04 11:22 | disposition home or self-care (01) ==
LOC: DIORS 11:21
PROVIDERS: PCP Nurse Practitioner Family; Referring Provider Nurse Practitioner Family; Visit Provider Physician Assistant
DX: M25.561 Pain in right knee (principal); S83.241A Other tear of medial meniscus, current injury, right knee, initial encounter
CPT/HCPCS: 73564

== ENCOUNTER 2024-09-21 00:35 | Outpatient (CLI) | payer BC, SELFPAY ==
--- NOTE | 2024-09-21 07:15 | DI.MRI_ITS ---
Exam(s) MR LOWER JOINT RT WO EXAM: MR LOWER JOINT RT WO CLINICAL HISTORY: PAIN,acute medial meniscus tear rt knee, [id number] TECHNIQUE: Multiplanar multisequence MRI of the knee was performed. COMPARISON: Knee x-rays 09/04/2024. FINDINGS: EFFUSION: There is a small-moderate size knee joint effusion. There is no Michael cyst in the poplitea l fossa. MARROW:There is no evidence of fracture, bone contusion, nor osteochondral defects.. No subarticular bone edema evident. There are no significant osseous lesions. PATELLOFEMORAL COMPARTMENT: The quadriceps tendon is intact. There is subcutaneous edema anterior to the patellar ligament but the patellar ligament is intact-unremarkable. There is no significant thinning of the retropatellar cartilage. No evidence of fissure nor signific ant chondral defect. No osteochondral defect at this level.There is no intraosseous signal to sugges t recent patellar dislocation. There are no patellar retinacular tears. CRUCIATE LIGAMENTS: The anterior cruciate ligament is intact.The posterior cruciate ligament is intac t. MEDIAL COMPARTMENT/MEDIAL MENISCUS: There is a focal tear in the body at the junction of the anterior and posterior hornsof the medial meniscus. There is no meniscal displacement nor flipped fragments. There is mild increased signal between in the outer aspect of the medial meniscus and the MCL. The re is, however, no prominent meniscal extrusion and no MCL tear There are no chondral defects, osteochondral defects, subarticular marrow edema, nor osteophytes evid ent. MEDIAL COLLATERAL LIGAMENT: Mild increased medial signal. No significant tear of this structure. LATERAL COMPARTMENT/LATERAL MENISCUS: There is no evidence of lateral meniscal tear.There are no allegra dral defects, osteochondral defects, subarticular marrow edema, nor osteophytes evident. ILIOTIBIAL BAND: Intact LATERAL COLLATERAL LIGAMENT COMPLEX: The fibular collateral ligament is intact. The biceps femoris t endon is intact.There is some fluid seen in the popliteus tendon sheath but no significant tear of th is structure. IMPRESSION: 1. There is relatively focal tear in the medial meniscus at the junction of the anterior posterior ho rns. There is no bucket-handle configuration. No flipped meniscal fragments. There is minimal late ral extrusion but no migration into the gutters. There is mild increased signal between the outer 3r d of the meniscus and the adjacent MCL. There is no significant MCL tearing. There are no obvious d egenerative changes in the medial compartment nor subarticular edema. 2. No findings in the lateral and patellofemoral compartments. 3. No cruciate ligament tears 4. Small-moderate size knee joint effusion noted. No Michael cyst evident. DATA REPOSITORY:
== END 2024-09-21 00:55 ==
LOC: DI 00:35
PROVIDERS: PCP Nurse Practitioner Family; Visit Provider Student in an Organized Health Care Education/Training Program
DX: S83.241A Other tear of medial meniscus, current injury, right knee, initial encounter (principal); X58.XXXA Exposure to other specified factors, initial encounter
CPT/HCPCS: 73721

== ENCOUNTER 2025-01-02 13:00 | Emergency (ER) | payer BC, SELFPAY ==
[2025-01-02 13:11] VITALS: BP 139/82; PULSE 79; RESP 12; TEMP 36.7; O2SAT 96
--- NOTE | 2025-01-02 13:26 | ED.GENADUL_ITS ---
Discharge Plan Disposition Patient Disposition: Home Condition: Stable Discharge Details Clinical Impression: Left elbow pain, Traumatic rupture of left distal biceps tendon Primary Care Provider: [facility] ED Provider: Isaiah Lomax Home Meds and New Rx's Prescriptions: Continued topiramate [Topamax] 25 mg tablet 50 mg PO HS Claritin Liqui-Gel 10 mg capsule 10 mg PO DAILY fluticasone propionate [Flonase Allergy Relief] 50 mcg/actuation spray,suspension 2 spray intranasal DAILY Qty: 16 12RF Rx Instructions: administer into each nostril albuterol sulfate [ProAir HFA] 8.5 GM HFA aerosol inhaler 2 puff Inhalation qid prn duloxetine [Cymbalta] 60 MG capsule,delayed release(DR/EC) 60 mg PO DAILY propranolol 40 mg tablet 40 mg PO BID lisinopril 40 mg tablet 40 mg PO DAILY oxycodone 10 mg tablet 10 mg PO TID PRN pregabalin 100 mg capsule 100 mg PO BID acetylcysteine 600 mg capsule 1,200 mg PO BID azelastine 137 mcg (0.1 %) spray,non-aerosol 1 spray intranasal BID PRN Rx Instructions: administer into each nostril (DME) Aerochamber Mini Spacer See Rx Instructions .Route Rx Instructions: As directed mirtazapine 30 mg tablet 30 mg PO DAILY No Action naproxen 250 mg tablet 250 mg PO BID PRN (Reason: moderate pain) Qty: 20 0RF Rx Instructions: take with a meal Discharge Instructions Instructions: Elbow Sprain ED Additional Instructions: You were seen in the emergency department for your possible left distal biceps tendon rupture, please follow-up with your MRI results tomorrow, use the sling during all activities save for resting at home on the couch. Insert alternating NSAID therapy, follow-up with [facility] orthopedics for results of MRI, you may need a referral from your PCP before you can see them but if your tendon is fully ruptured you will likely get surgical repair within 1 to 2 weeks if it is partially torn you will have rest followed by physical therapy, please return for any signs of neurovascular compromise distal to left elbow. Referrals: [facility] [Provider Group] [facility] [Primary Care Provider, Medicine] Discharge Data Discharge Date/Time-TO BE ENTERED AT DEPARTURE: 01/02/25 16:06 HPI General Date/Time Provider Initiated Documentation: 01/02/25 13:26 . HPI Narrative: 59 year-old male presents to ED today by POV/ambulating with a chief complaint of L bicep strain- felt a rip and feels like he tore his biceps tendon while working overhead with sheets of plywood with onset yesterday. Quality described as L distal biceps tendon pain, mild bruising, no radiation to inability to flex the elbow, shoulder tenderness, severe swelling, numbness distally. Severity is described as severe. Palliating factors include RICE and APAP/NSAID without relief. Provoking factors include movement of L arm. Events leading up to the incident/Associated Symptoms: Patient is R-hand dominant. Patient not anticoagulated. Related Data Home Medications ?Medication ?Instructions ?Recorded ?Confirmed albuterol sulfate 90 mcg/actuation 2 puff inhalation q id prn 01/13/18 01/04/25 aerosol inhaler (ProAir HFA) duloxetine 60 mg capsule,delayed 60 mg PO DAILY 01/04/25 release (Cymbalta) propranolol 40 mg tablet 40 mg PO BID 02/22/19 loratadine 10 mg capsule (Claritin 10 mg PO DAILY 05/1801/04/25 Liqui-Gel) topiramate 25 mg tablet (Topamax) 50 mg PO HS 06/09/21 01/04/25 lisinopril 40 mg tablet 40 mg PO DAILY 07/15/2112/16 oxycodone 10 mg tablet 10 mg PO TID PRN 07/15/21 mirtazapine 30 mg tablet 30 mg PO DAILY 05/25/2312/16 pregabalin 100 mg capsule 100 mg PO BID 07/27/2301/04 acetylcysteine 600 mg capsule 1,200 mg PO BID 01/05/24 01/04/25 azelastine 137 mcg (0.1 %) nasal 1 spray intranasal BI D PRN 01/05/24 01/04/25 spray fluticasone propionate 50 2 spray intranasal DAILY #16 grams 01/26/24 01/04/25 mcg/actuation nasal spray,suspension (Flonase Allergy Relief) inhalational spacing device 07/14/24 01/03/25 (Aerochamber Mini) naproxen 250 mg tablet 250 mg PO BID PRN moderate p ain 01/04/25 #20 tabs Previous Rx's ?Medication ?Instructions ?Recorded fluticasone propionate 50 2 spray intranasal DAILY #16 grams 01/26/24 mcg/actuation nasal spray,suspension (Flonase Allergy Relief) naproxen 250 mg tablet 250 mg PO BID PRN moderate p ain 01/04/25 #20 tabs Allergies Allergy/AdvReac Type Severity Reaction Status Date / Time tiotropium (From Spiriva Allergy Hives Verified 01/03/25 10:13 with HandiHaler) animal dander AdvReac watery Verified 01/03/25 10:13 eyes, sneezing house dust AdvReac watery Verified 01/03/25 10:13 eyes, sneezing General Stated Complaint: Orthopedic ASHLEY: 4 Review of Systems All systems reviewed & are unremarkable except as noted in HPI and below Exam Narrative Exam Narrative: GENERAL APPEARANCE: Well-nourished, non-toxic, awake and alert, atraumatic, no acute distress. SKIN: Warm, pink, dry, intact, without rashes/lesions/ulcerations. HEAD: Normocephalic, atraumatic, normal hair distribution for gender/age. EYES: Normal conjunctiva, no exudates on lids/lashes. ENT: Nares patent, no circumoral cyanosis, no facial swelling NECK: Supple, trachea midline, painless cervical ROM. LUNGS/CHEST: Non-labored respirations, normal A/P diameter, symmetrical expansion, no chest wall deformity HEART (CV/PV): Regular rate, no peripheral edema, no JVD. ABDOMEN: Soft, non-distended, no guarding. MSK: Normal ROM, no swelling/deformity to LEs, moving all extremities without weakness- save for mild weakness elbow flexion L UE, no cyanosis, spine midline without tenderness, normal curvature. L elbow: Abnormality to palpation where the distal biceps tendon should be, I do question if there is any structure to this area, some bruising in the left AC fossa, no shoulder tenderness, left radial pulse 2+, [employer] strength 5/5 NEURO: Mental Status AAOx4 - alert to person, place, time, events No facial droop, no forehead involvement. Motor: No focal weakness save for obvious orthopaedic injury to L UE Sensory: sensation intact to light touch globally. Gait normal: patient ambulated without ataxia into ED room. PSYCH: euthymic, cooperative, pleasant, appropriate speech Course Vital Signs Vital signs: Vital Signs Temperature 36.7 C 01/02/25 13:11 Pulse 79 01/02/25 13:11 Respiratory Rate 12 01/02/25 13:11 Blood Pressure 139/82 01/02/25 13:11 Pulse Oximetry 96 01/02/25 13:11 Temperature 36.7 C 01/02/25 13:11 Temperature Source Oral 01/02/25 13:11 Pulse 79 01/02/25 13:11 Respiratory Rate 12 01/02/25 13:11 Blood Pressure 139/82 01/02/25 13:11 Blood Pressure Position Sitting 01/02/25 13:11 Pulse Oximetry 96 01/02/25 13:11 Oxygen Delivery Method Room Air 01/02/25 13:11 Oxygen Flow Rate 0 01/02/25 13:11 Medical Decision Making This dictation utilizes [id number] dictation software and may contain unedited grammatical errors. 59 year-old male presents to ED today by POV/ambulating with a chief complaint of L bicep strain- felt a rip and feels like he tore his biceps tendon while working overhead with sheets of plywood with onset yesterday. Quality described as L distal biceps tendon pain, mild bruising, no radiation to inability to flex the elbow, shoulder tenderness, severe swelling, numbness distally. Severity is described as severe. Palliating factors include RICE and APAP/NSAID without relief. Provoking factors include movement of L arm. Events leading up to the incident/Associated Symptoms: Patient is R-hand dominant. Patients' medical history: Various orthopedic injuries. Family and social history: Noncontributory. Pertinent exam findings / vital signs include bruising in the left AC fossa, left radial pulse 2+, [employer] strength 5/5, slight weakness to elbow flexion, does appear that the left biceps muscle has retracted superiorly. Differential / pathologies of concern include strain or sprain, biceps tendon rupture. Diagnostic studies of: - XR left elbow- no acute fracture seen, MR left elbow- sent home after ortho consult without this result. Interventions of: -sling & rest per ortho Dr. Cornejo. ED Course/Assessment/Plan: 59-year-old male presents with traumatic likely rupture of his left biceps tendo n, x-ray shows no fracture, I did perform MRI as we do not have Ortho on-call today to hopefully aid in expeditious repair as I had a high suspicion, I did send Dr. Cortez a WebEx on this result but discharged the patient with a sling and rest and he can follow-up with the results after, Dr. Cortez did get back to me that it looked like a full rupture prior to radiology read, the patient had left but he will follow-up in office for repair. Findings not consistent with fracture, neurovascular compromise. Disposition of left elbow pain, traumatic rupture of last distal biceps tendon. Patient verbalized understanding of the plan and return to ED criteria and engaged in shared decision making. Medical Records Medical records reviewed: Yes I reviewed the patient's medical records. Imaging Data Radiologic Study: Attestation: I personally reviewed and interpreted this imaging study as follows: Imaging: X-Ray Radiologist's impression: EXAM: XR ELBOW LT COMPLETE CLINICAL HISTORY: L elbow pain. TECHNIQUE: 2D digital imaging was performed. Three views. COMPARISON: No exams were available for comparison FINDINGS: BONES: No acute fracture is present. No bony destructive lesion is seen. JOINTS: The elbow is normally aligned. Minimal periarticular spurring. No joint effusion is seen. SOFT TISSUE: Normal. IMPRESSION: No acute abnormality. Radiologic Study #2: Attestation: I personally reviewed and interpreted this imaging study as follows: Imaging: MRI Radiologist's impression: EXAM: MR UPPER JOINT LT WO CLINICAL HISTORY: L Elbow - possible distal biceps rupture. TECHNIQUE: Multiplanar multisequence MRI was performed. COMPARISON: Plain films of the same day FINDINGS: The exam is limited by pulsation artifact extends through the area of interest. Elbow joint: No joint effusion. No loose bodies. Bones: There is no fracture or contusion pattern. Biceps tendon: There is full-thickness tear with retraction of the biceps tendon mild least 2 cm. There is significant surrounding edema as well as edema of distal muscle fibers. Brachialis tendon: Intact. No tendinosis. Common flexor tendons: Intact. No tendinosis. Common extensor tendons: Intact. No tendinosis. Triceps tendon: Intact. No tendinosis. Soft tissues: Unremarkable. IMPRESSION: Full-thickness tear with retraction of the biceps tendon. Significant surrounding edema as well as edema in distal muscle fibers. PFSH All Active Problems (Updated 08/22/25 @ 22:21 by MICHAEL Quinones) Traumatic rupture of left distal biceps tendon (Acute 01/02/25) History of cataract surgery (Chronic) right 12/19/24 Left elbow pain (Acute) Sacroiliac joint dysfunction of left side (Acute) Lumbosacral spondylosis without myelopathy (Acute) Arthritis of right knee (Acute) Tear of medial meniscus of right knee (Acute) DEPO MEDROL 09/28/24 Right knee pain (Acute) Deviated nasal septum (Acute) Nasal congestion (Acute) Eustachian tube dysfunction (Acute) BPH w urinary obs/LUTS (Acute) Family disruption due to legal separation (Acute) Neck pain (Acute) Adjustment disorder with mixed anxiety and depressed mood (Acute) Diverticulitis large intestine (Acute) Chronic kidney disease (Chronic) Allergic rhinitis (Acute) Essential hypertension (Acute) Nicotine dependence (Acute) Kidney stones (Chronic) Intervertebral disc disorder (Acute) Lesion of eyelid (Acute) Low back pain (Acute) Shoulder joint pain (Acute) Genitourinary symptoms (Acute) Frequent headaches (Acute) Insomnia (Acute) History of urinary stone (Acute) Alcohol abuse (Chronic) Obesity (Chronic) Cervical radiculopathy (Acute) Subacromial impingement (Acute) Muscle pain, cervical (Acute) Lumbosacral spondylosis without myelopathy (Acute) Syncope (Chronic) Headache, chronic migraine without aura (Acute) Encounter for colorectal cancer screening (Acute) Medical History (Updated 01/05/25 @ 22:21 by MICHAEL Quinones) Aftercare following left shoulder joint replacement surgery Disorder of skin and subcutaneous tissue Anxiety disorder due to general medical condition Disorder of kidney and ureter Eczema Solitary lung nodule Nonulcer dyspepsia Urinary tract stones Blood in urine Benign prostatic hyperplasia Multiple renal cysts Tobacco dependence Acute right otitis media Upper respiratory infection Hearing loss History of psychiatric disorder Dyspepsia Loss of consciousness Renal impairment Impaired fasting glucose COPD (chronic obstructive pulmonary disease) Hyperlipidemia Headache Alopecia totalis Hypertension Asymptomatic microscopic hematuria Lumbar back pain Environmental allergies Asthma, mild intermittent Diverticulitis Diarrhea Depression Anxiety Shingles Sleep apnea Surgical History S/P cervical disc replacement C4-5 History of lumbar fusion 2-3, 3-4 H/O colonoscopy (03/11/18) Dr Mendez, negative, repeat in 10 years Family History Father Alcohol use disorder Depression Cancer esophageal cancer Paternal Grandfather Prostate cancer Maternal Grandfather Cancer Bone Cancer Paternal Grandmother Breast cancer Social History Smoking/Tobacco Use Status: Former Tobacco Use Quit Date: 05/17/24 Pack-years: 30 Tobacco: How many years used: 10 Smoking risk assessment performed?: Yes Alcohol Intake: current Alcohol Intake frequency: holidays/special occasions only Alcohol type: beer Drug use: Rarely Substance use type: marijuana Details: Cannabis daily at for neck pain- Reports it does relieve his pain. 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
--- NOTE | 2025-01-02 13:45 | DI.RAD_ITS ---
Exam(s) XR ELBOW LT COMPLETE EXAM: XR ELBOW LT COMPLETE CLINICAL HISTORY: L elbow pain. TECHNIQUE: 2D digital imaging was performed. Three views. COMPARISON: No exams were available for comparison FINDINGS: BONES: No acute fracture is present. No bony destructive lesion is seen. JOINTS: The elbow is normally aligned. Minimal periarticular spurring. No joint effusion is seen. SOFT TISSUE: Normal. IMPRESSION: No acute abnormality. DATA REPOSITORY: RADIATION DOSE DELIVERED:
--- NOTE | 2025-01-02 14:36 | DI.MRI_ITS ---
Exam(s) MR UPPER JOINT LT WO EXAM: MR UPPER JOINT LT WO CLINICAL HISTORY: L Elbow - possible distal biceps rupture. TECHNIQUE: Multiplanar multisequence MRI was performed. COMPARISON: Plain films of the same day FINDINGS: The exam is limited by pulsation artifact extends through the area of interest. Elbow joint: No joint effusion. No loose bodies. Bones: There is no fracture or contusion pattern. Biceps tendon: There is full-thickness tear with retraction of the biceps tendon mild least 2 cm. There is significant surrounding edema as well as edema of distal muscle fibers. Brachialis tendon: Intact. No tendinosis. Common flexor tendons: Intact. No tendinosis. Common extensor tendons: Intact. No tendinosis. Triceps tendon: Intact. No tendinosis. Soft tissues: Unremarkable. IMPRESSION: Full-thickness tear with retraction of the biceps tendon. Significant surrounding edema as well as edema in distal muscle fibers. DATA REPOSITORY:
[2025-01-02 16:06] VITALS: BP 141/85; PULSE 80; RESP 18; TEMP 36.7; O2SAT 100
--- NOTE | 2025-01-03 07:09 | NUR.NOTE ---
Access chart to print the demographic sheet for [facility] billing requisition. Nursing Note:
== END 2025-01-02 16:06 | disposition home or self-care (01) ==
PROVIDERS: Emergency Provider Physician Assistant; PCP Nurse Practitioner Family
DX: M25.522 Pain in left elbow (principal)
CPT/HCPCS: 99284; 99283; 73080; 73221

== ENCOUNTER 2025-01-04 10:19 | Day surgery (SDC) | payer BC, SELFPAY ==
[2025-01-04] VITALS (46 sets, daily range): BP systolic 95–130; BP diastolic 46–89; PULSE 58–93; RESP 8–20; TEMP 36.2–36.9; O2SAT 92–100; BMI 32.4
--- NOTE | 2025-01-04 07:19 | PDOC.DSDIS_ITS ---
Date of service: 01/04/25 Discharge Plan Disposition Patient Disposition: Home Condition: Stable Discharge Details Attending Provider: Raoul Cortez Primary Care Provider: [facility] Home Meds and New Rx's Prescriptions: New naproxen 250 mg tablet 250 - 500 mg PO BID PRN (Reason: Moderate pain) Qty: 40 0RF Continued topiramate [Topamax] 25 mg tablet 50 mg PO HS Claritin Liqui-Gel 10 mg capsule 10 mg PO DAILY fluticasone propionate [Flonase Allergy Relief] 50 mcg/actuation spray,suspension 2 spray intranasal DAILY Qty: 16 12RF Rx Instructions: administer into each nostril albuterol sulfate [ProAir HFA] 8.5 GM HFA aerosol inhaler 2 puff Inhalation qid prn duloxetine [Cymbalta] 60 MG capsule,delayed release(DR/EC) 60 mg PO DAILY propranolol 40 mg tablet 40 mg PO BID lisinopril 40 mg tablet 40 mg PO DAILY oxycodone 10 mg tablet 10 mg PO TID PRN pregabalin 100 mg capsule 100 mg PO BID acetylcysteine 600 mg capsule 1,200 mg PO BID azelastine 137 mcg (0.1 %) spray,non-aerosol 1 spray intranasal BID PRN Rx Instructions: administer into each nostril (DME) Aerochamber Mini Spacer See Rx Instructions .Route Rx Instructions: As directed mirtazapine 30 mg tablet 30 mg PO DAILY Discharge Instructions Additional Instructions: Surgery: Left distal biceps tendon repair 01/04/2025 Activity: Protected use right upper extremity for about 3+ months. Use the sling for support when out of the house for about 1 month. Otherwise, you may rest the upper extremity at your side or on pillows. Keep the elbow bent about 90 degrees until your initial follow-up visit. After that visit, we will gradually progress to full elbow range of motion. Gentle use okay (e.g., writing, typing, eating, and drinking). Do not lift more than a couple pounds (i.e., coffee) for 6 weeks. A physical therapy prescription will be sent electronically to start about 3 weeks. Modified PT protocol: Avoid extension for 2 weeks and then gently progressed to full range of motion Isometrics after 6 weeks Concentric strengthening after 10 weeks Eccentric strengthening after 14 weeks Continue your already prescribed oxycodone as directed Prescriptions: Naproxen 250 mg take 1-2 every 12 hours with a meal as needed for moderate pain (do not use at the same time as any other NSAIDs) You may use [id number] Tylenol (acetaminophen) as needed for mild pain. These pain medications may be taken all at once or in different combinations as needed. Also, recommend Colace (docusate) as a stool softener as surgery and pain medicine cause constipation. You may try [id number] diphenhydramine (Benadryl) 25-50 mg nightly as a sleep aid Dressings: Leave splint and dressing in place until follow-up. Keep clean and dry at all times. Follow-up: 10-[address] Cortez You may take off the leg compression stockings this evening at home. You may also leave them on a few days longer if you have a history of leg swelling or edema. Let us know right away if you develop any redness, drainage, fevers, chest pain, or trouble breathing. Do not drink alcohol or drive for at least 24 hours aft er anesthesia. Please call the office during business hours with any questions or concerns. Stand Alone Forms: Anesthesia Discharge Inst., Anes.Nerve Block Instructions, Becky Pickering (DSU) Referrals: Raoul Cortez MD [ [facility] STAFF PHYSICIAN, Orthopaedic Surgical] - 01/16/25 11:15 am Discharge Orders Discharge Orders: Discharge Order (Routine); Ordered 01/04/25 Ordered By: Sarmad Bass DS: Diagnosis Discharge Diagnosis (1) Traumatic rupture of left distal biceps tendon: Status: Acute
--- NOTE | 2025-01-04 07:19 | ROE_ITS ---
Operative Note Operative Note PRE-OP DIAGNOSIS: Left complete retracted distal biceps tendon rupture POST-OP DIAGNOSIS: same PROCEDURE: Left distal biceps tendon repair, CPT #02565 SURGEON: Raoul Cortez SERVICES PROGRAM MANAGER: Sarmad Bass ANESTHESIA TYPE: Local By Surgeon, General LMA/ETT and Primary Nerve Block Refer to Anesthesia Record ESTIMATED BLOOD LOSS: 5 COMPLICATIONS: None Patient was transported to: PACU Patient's condition: stable Implants: Arthrex distal biceps button Indications: Please see complete medical record for details. Findings: Complete retracted distal biceps tendon with modest tendon remnant on the radial tuberosity Procedure Description: In the operating room, general anesthesia was induced. The patient was positioned supine on the operating room table. All bony prominences were well- padded. Preoperative antibiotics were administered. The left elbow was prepped and draped in the usual sterile fashion. The correct patient, procedure, and side of the procedure were all verified prior to incision. The radial tuberosity was localized with the forearm in full supination using fluoroscopy. A moderately sized longitudinal incision preinjected with 0.25% bupivacaine containing epinephrine. Sharp dissection was carried through the skin with careful retraction protection of neurovascular structures and some ligation of crossing veins. The fascia was opened and blunt dissection carried deep to the zone of injury with the radial tuberosity retracted biceps tendon palpated. Careful retraction gently radially was used with the forearm in full supination to avoid the PIN. Radial tuberosity was then confirmed, debrided of some tendon remnant. The tendon was then found a few centimeters more proximal cyst, secured, withdrawn out the wound. The enlarged footprint was trimmed to fit into the planned socket and it was prepared with fiber loop. The radial tuberosity was then localized, confirmed fluoroscopically, and drilled bicortically with the guidepin followed by unicortical socket creation with the 8 mm low-profile reamer. The reamings were thoroughly irrigated from the wound. Soft tissues were cleared from the socket margin. The fiber loop tails were then loaded through the distal biceps button and then with a free needle back through the end of the prepared tendon using the modified tension slide technique. The button was then passed into the socket and just past the far cortex, deployed and flipped. Confirmed to be correct with fluoroscopy and tested manually before the tendon was delivered steadily into the prepared socket with the elbow and moderate flexion and using a Vesta to aid in clearing the rim of the socket. The tendon had moderately significant tension despite the acute repair, but was solid on testing. Knots were tied on the free tails completing the repair. The wound was copiously irrigate with saline. Hemostasis was confirmed be appropriate. The radial artery was palpable ulnar to the working area. Subcutaneous tissue was closed with 3-0 Monocryl buried interrupted. Skin was closed with 3-0 Monocryl running subcuticular. Skin glue applied over the cyst and followed by Mepilex Band-Aid. The elbow was maintained in a flexed position. Radial artery was readily palpable. The patient awoke from anesthesia without complication and was transferred to the recovery room in a stable condition. Date of Procedure: 01/04/25
--- NOTE | 2025-01-04 11:26 | W.ANESPRE ---
General Info Date of Service Date Performed: 01/04/25 Height: 5 ft 9 in Weight: 99.7 kg Body Mass Index (BMI): 32.4 Surgical Procedure: Operation Date: 01/04/25 12:10 Proposed Procedure Side Surgeon p Elbow Bicep Tendon Repair Left Raoul Cortez MD Actual Procedure Side Surgeon p Elbow Bicep Tendon Repair Left Raoul Cortez MD Pre-Op Diagnosis Post-Op Diagnosis Tear of distal tendon of biceps Left Meds Allergies and Home Medications Allergies Allergy/AdvReac Type Severity Reaction Status Date / Time tiotropium (From Spiriva Allergy Hives Verified 01/03/25 10:13 with HandiHaler) animal dander AdvReac watery Verified 01/03/25 10:13 eyes, sneezing house dust AdvReac watery Verified 01/03/25 10:13 eyes, sneezing Home Medication Medication Instructions Recorded albuterol sulfate 90 mcg/actuation 2 puff inhalation qid prn 01/13/18 aerosol inhaler (ProAir HFA) duloxetine 60 mg capsule,delayed 60 mg PO DAILY 01/13/18 release (Cymbalta) propranolol 40 mg tablet 40 mg PO BID 02/22/19 loratadine 10 mg capsule (Claritin 10 mg PO DAILY 06/09/21 Liqui-Gel) topiramate 25 mg tablet (Topamax) 50 mg PO HS 06/09/21 lisinopril 40 mg tablet 40 mg PO DAILY 07/15/21 oxycodone 10 mg tablet 10 mg PO TID PRN 07/15/21 mirtazapine 30 mg tablet 30 mg PO DAILY 05/25/23 pregabalin 100 mg capsule 100 mg PO BID 07/27/23 acetylcysteine 600 mg capsule 1,200 mg PO BID 01/05/24 azelastine 137 mcg (0.1 %) nasal 1 spray intranasal BID PRN 01/05/24 spray fluticasone propionate 50 2 spray intranasal DAILY #16 grams 01/26/24 mcg/actuation nasal spray,suspension (Flonase Allergy Relief) inhalational spacing device 07/14/24 (Aerochamber Mini) naproxen 250 mg tablet 250 - 500 mg (1 - 2 x 250 mg) PO 01/04/25 BID PRN Moderate pain #40 tabs Current Visit Medications: Current Medications Generic Name Dose Route Start Last Admin Trade Name Freq PRN Reason Stop Dose Admin Ringer's Solution 1,000 mls @ 30 mls/hr 01/04/25 06:00 IV 01/04/25 23:59 INFUSION ARSLAN Cefazolin Sodium/Dextrose 2 gm in 50 mls @ 100 mls/hr 01/04/25 06:00 Ancef Duplex IVPB 01/04/25 23:59 PREOP ARSLAN Tranexamic Acid/Sodium Chloride 1,000 mg in 100 mls @ 600 mls/hr 01/04/25 06:00 IVPB 01/04/25 23:59 PREOP ARSLAN IV Miscellaneous Supplies 1 each 01/04/25 06:00 Iv Access IV 01/04/25 23:59 DIRECTED ARSLAN Oxycodone HCl 0 mg 01/04/25 07:19 Oxycodone 5 Mg Tab PO 02/03/25 07:18 Q3H PRN PRN Pain Sodium Chloride 0 ml 01/04/25 06:00 Normal Saline Flush 10 Ml Syr IV 01/04/25 23:59 PRN PRN Sodium Chloride 0 ml 01/04/25 06:00 Normal Saline 10 Ml Vial IJ 01/04/25 23:59 DIRECTED PRN Sterile Water 0 ml 01/04/25 06:00 Water,Injection,Sterile 10 Ml Vial IJ 01/04/25 23:59 DIRECTED PRN PFSH Active Problems Active Problems: Problem Status Onset Code History of cataract surgery Chronic Z98.49 Tear of distal tendon of biceps Acute ~01/02/25 S46.219A Left elbow pain Acute M25.522 Sacroiliac joint dysfunction of left side Acute M53.3 Lumbosacral spondylosis without myelopathy Acute M47.817 Arthritis of right knee Acute M17.11 Tear of medial meniscus of right knee Acute S83.241A Right knee pain Acute M25.561 Deviated nasal septum Acute J34.2 Nasal congestion Acute R09.81 Eustachian tube dysfunction Acute H69.90 BPH w urinary obs/LUTS Acute N40.1, N13.8 Family disruption due to legal separation Acute Z63.5 Neck pain Acute M54.2 Adjustment disorder with mixed anxiety and depressed mood Acute F43.23 Diverticulitis large intestine Acute K57.32 Chronic kidney disease Chronic N18.9 Allergic rhinitis Acute J30.9 Essential hypertension Acute I10 Nicotine dependence Acute F17.200 Kidney stones Chronic N20.0 Intervertebral disc disorder Acute M51.9 Lesion of eyelid Acute H02.9 Low back pain Acute M54.50 Shoulder joint pain Acute M25.519 Genitourinary symptoms Acute R39.9 Frequent headaches Acute R51.9 Insomnia Acute G47.00 History of urinary stone Acute Z87.442 Alcohol abuse Chronic F10.10 Obesity Chronic E66.9 Cervical radiculopathy Acute M54.12 Subacromial impingement Acute M75.40 Muscle pain, cervical Acute M54.2 Lumbosacral spondylosis without myelopathy Acute M47.817 Syncope Chronic R55 Headache, chronic migraine without aura Acute G43.709 Encounter for colorectal cancer screening Acute Z12.11, Z12.12 Medical History Medical History Aftercare following left shoulder joint replacement surgery Disorder of skin and subcutaneous tissue Anxiety disorder due to general medical condition Disorder of kidney and ureter Eczema Solitary lung nodule Nonulcer dyspepsia Urinary tract stones Blood in urine Benign prostatic hyperplasia Multiple renal cysts Tobacco dependence Acute right otitis media Upper respiratory infection Hearing loss History of psychiatric disorder Dyspepsia Loss of consciousness Renal impairment Impaired fasting glucose COPD (chronic obstructive pulmonary disease) Hyperlipidemia Headache Alopecia totalis Hypertension Asymptomatic microscopic hematuria Lumbar back pain Environmental allergies Asthma, mild intermittent Diverticulitis Diarrhea Depression Anxiety Shingles Sleep apnea Medical History Comments:: remote Hx during back surgery of waking flailing/pulling at tubes Surgical History Surgical History S/P cervical disc replacement C4-5 History of lumbar fusion 2-3, 3-4 H/O colonoscopy (03/11/18) Dr Mendez, negative, repeat in 10 years Tobacco Smoking/Tobacco Use Status: Former Tobacco Use Alcohol Alcohol Intake: current Alcohol intake frequency: holidays/special occasions only Alcohol type: beer Substance Use Substance use: Rarely Substance use type: marijuana Details: Cannabis daily at HS for neck pain- Reports it does relieve his pain. Vital Signs and Lab Results Vital Signs Most Recent Vital Signs in EMR: Most Recent Vital Signs Temp Pulse Resp BP Pulse Ox 36.3 C L 67 16 112/68 98 01/04/25 10:40 01/04/25 10:40 01/04/25 10:40 01/04/25 11:25 01/04/25 10:40 Imaging and Studies Imaging and Studies Study information below may be from another EMR and interpreted by another provider. Please see original notes in EMR for more complete details. EKG Summary: 03/03/23: Exam: Resting ECG Reason for Exam: syncope Patient Location: E HR:68 bpm ECG Measurements Heart Rate 68 AXIS VT 171 P 64 QRSd 99 QRS 43 QT 412 T50 QTc 439 Conclusion Sinus rhythm...normal P axis, V-rate 60- 99 Physician: no stemi, intervals normal I have reviewed and I agree with the emergency room physician's ECG interpretation. Pulmonary Function Summary: 03/04/21: Pulmonary Function Test Result Requesting Provider Katie Molina Indications: Disability determination Interpretation Spirometry: There is moderate airflow obstruction. There is a significant bronchodilator effect. There is inspiratory loop blunting on the flow volume loop. Impression Moderate airflow obstruction with a significant bronchodilator effect. In the correct clinical context this could represent COPD, asthma or asthma COPD overlap syndrome. The inspiratory blunting on the flow volume loop could represent vocal cord dysfunction. Note: When compared to pulmonary function testing completed in 06/03/2020 there is a significant improvement to both the FEV1 and the FVC, there is still a significant bronchodilator effect and inspiratory loop blunting on the flow volume curve is new Clinical Correlation therefore is recommended. Anesthesia Assessment and Plan Anesthesia History Personal History: No History of Anesthesia Complications Family History: No Family History of Anesthesia Complications Exercise Tolerance Exercise Tolerance: Metabolic Equivalents>4 Cardiac & Pulmonary Exam Cardiac Exam: Normal S1/S2 Heart Sounds Pulmonary Exam: Clear Bilateral Breath Sounds Implantable Cardiac Device Does patient have a Pacemaker or an ICD?: No Airway Exam Known Difficult Airway: No Mallampati Class: 2 Mouth Opening: Normal (> 3cm) Thyromental Distance: Greater than 3 cm Neck Range of Motion: Limited ROM Neck Circumference: Normal Teeth Condition: Normal Dentition ASA Classification ASA Score: ASA 3 Emergency Case?: No NPO Status NPO Status: NPO Clears >2 hours, Solids >8 hours Anesthesia Plan Resuscitation Status: Full Code Anesthesia Technique: General Anesthesia Airway Planned: LMA Pain Management: Surgeon and patient request nerve block Monitors Used: Standard Monitors and SedLine
[2025-01-04] MEDS: Lactated Ringers 1,000 ML 30 ML IV ×2 (11:40→14:49)
[2025-01-04] MEDS: ceFAZolin 2 GM/50 ML BAG IVPB (12:05)
[2025-01-04] MEDS: TRANEXAMIC ACID/SOD. CHL. 1,000 MG/100 ML BAG 600 MG IVPB (12:22)
[2025-01-04] MEDS: Bupivacaine 0.25% Pres-Free W/EPI 30 ML VIAL (12:46)
--- NOTE | 2025-01-04 12:54 | W.ANESNERVE ---
Nerve Block Single Injection Procedure Date and Time Date Performed: 01/04/25 Procedure Start: 11:52 Location Where Procedure Performed Procedure Location: Day Surgery Unit Reason Performed: Postoperative Analgesia Requesting Provider: Raoul Cortez Timeout Performed Timeout Performed: Yes Monitoring Used ECG, Blood Pressure, SpO2 and See EMR for corresponding vital signs Sterility Sterility: Hand Hygiene, Surgical Cap, Surgical Mask, Sterile Gloves and Chlorhexidine Sedation Given During Procedure Sedation Given (Indicate Dose Given): Versed IV Dose:: 2mg Patient Mental Status Patient Mental Status: Awake Nerve Block 1st Nerve Block: Laterality: Left Block Type: Interscalene (Low Interscalene) Ultrasound Image Saved?: Yes Needle / Catheter Used: 80mm SonoPlex II Local Anesthetic Bolus (Indicate Dose Given): Lidocaine used for local infiltration of skin, Injected in 3-5ml increments after negative blood aspiration, Bupivacaine 0.5% Dose:: 10mL and Exparel Dose:: 10mL Additives (Indicate Dose Given): None Ultrasound: Sterile probe cover and gel used Nerve Stimulator: Supplement to Ultrasound use and No twitch or parasthesia noted < 0.5 mA Paresthesia: None Procedure Tolerated: No Complications Procedure Outcome: Successful Performed By: Almita Lee Other (not listed above): Dangelo Gentile CRNA assist
--- NOTE | 2025-01-04 14:05 | DI.RAD_ITS ---
Exam(s) XR ELBOW LT LIMITED EXAM: XR ELBOW LT LIMITED CLINICAL HISTORY: Tear of distal tendon of biceps Left. TECHNIQUE: 2D and realtime digital imaging was performed. COMPARISON: CR XR ELBOW LT COMPLETE from 01/02/2025 FINDINGS: The patient is status post repair of biceps tendon tear. Please see procedure note for details. Fluoro time: 0.8 seconds RADIATION DOSE DELIVERED: Iainr=0.23 mGy
[2025-01-04] MEDS: fentaNYL 100 MCG/2 ML VIAL IVP ×2 (14:34→14:39)
[2025-01-04] MEDS: HYDROmorphone 2 MG/ML SYR IVP ×5 (14:42→15:28)
[2025-01-04] MEDS: oxyCODONE 5 MG TAB PO (15:23)
[2025-01-04] MEDS: ACETAMINOPHEN 1,000 MG/100 ML BAG 400 MG IVPB (15:48)
--- NOTE | 2025-01-04 15:57 | W.ANESPOSTOP ---
Postoperative Evaluation Date, Time and Location Date Performed: 01/04/25 Time Performed: 15:57 Patient Location: PACU Vital Signs Most Recent Imported Vital Signs: Most Recent Vital Signs Temp Pulse Resp BP Pulse Ox 36.6 C 76 10 L 95/69 L 98 01/04/25 15:50 01/04/25 15:51 01/04/25 15:51 01/04/25 15:50 01/04/25 15:51 Pain Score Most Recent Pain Score: Most Recent Pain Score Pain Level 8 01/04/25 15:51 Assessment Mental Status: Awake (Alert & Oriented to Patient Baseline) Airway and Respiratory Function: Patent airway with normal (patient baseline) respiratory exam Cardiovascular Function: Hemodynamically Stable Hydration Status: Adequately Hydrated Nausea & Vomiting: No Nausea or Vomiting Pain: Pain is Moderate or Severe Postoperative Pain Management: Pain being addressed with medication Peripheral Nerve Block: Regional nerve block not resolved at time of post operative discharge Postoperative Comments:: Patient is reporting isolated discomfort in his posterior elbow. Dr. Cortez is aware, oral medications being administered for patient's baseline.
== END 2025-01-04 17:17 | disposition home or self-care (01) ==
LOC: SUR 10:19
PROVIDERS: PCP Nurse Practitioner Family; Visit Provider Student in an Organized Health Care Education/Training Program
PROC: (CPT 24341; principal; 2025-01-04 12:00)
DX: S46.212A Strain of muscle, fascia and tendon of other parts of biceps, left arm, initial encounter (principal); X58.XXXA Exposure to other specified factors, initial encounter; G89.18 Other acute postprocedural pain
CPT/HCPCS: 24342; 64415; 76000; 73070; J0131; J0665; J0666; J0690; J1100; J1171; J2250; J2371; J2405; J2598; J2704; J3010

== ENCOUNTER 2025-01-23 10:03 | Outpatient (REF) | payer BC, SELFPAY ==
[2025-01-24 11:41] LABS: Fentanyl Scr w/Rfx Confirm Negative ng/mL (<1)
== END 2025-01-23 10:04 | disposition home or self-care (01) ==
LOC: NCHCN 10:03
PROVIDERS: PCP Nurse Practitioner Family; Visit Provider Nurse Practitioner Family
DX: M54.50 Low back pain, unspecified (principal)
CPT/HCPCS: 80307

== ENCOUNTER 2025-02-01 14:32 | Outpatient (CLI) | payer BC, SELFPAY ==
--- NOTE | 2025-02-01 06:00 | DI.RAD_ITS ---
Exam(s) XR PAIN CLINIC SACRIOILIAC 2V EXAM: XR PAIN CLINIC SACRIOILIAC 2V CLINICAL HISTORY: DX: Sacroiliac Dysfunction TECHNIQUE: 2D and realtime digital imaging was performed. Radiologist not present. CONTRAST MATERIAL: None. COMPARISON: No exams were available for comparison FINDINGS: Fluoroscopy was provided for pain management therapy. Sacroiliac joint injection Please refer to procedure report or details. Radiation Exposure Index: Ka,r=3.91 mGy IMPRESSION: As above. RADIATION DOSE DELIVERED:
[2025-02-01 14:24] VITALS: BP 110/83; PULSE 92; RESP 18; TEMP 37.3; O2SAT 96
[2025-02-01 15:07] VITALS: PULSE 80; RESP 10; O2SAT 95
[2025-02-01 15:08] VITALS: BP 140/93; PULSE 74; PULSE 94; RESP 10; O2SAT 95
[2025-02-01 15:10] VITALS: PULSE 93; PULSE 94; RESP 12; O2SAT 95
[2025-02-01] MEDS: methylPREDNISolone ACETATE 40 MG/ML VIAL IJ (15:21)
[2025-02-01] MEDS: Omnipaque 240 MG/ML 50 ML BTL IJ (15:21)
[2025-02-01] MEDS: Nerve Block Tray 1 EACH MC (15:21)
--- NOTE | 2025-02-05 08:01 | PDOC.PAIN_ITS ---
Date of service: 02/01/25 Time of Service: 15:55 Pain Managment Procedure Note Procedure Note Procedure Note: PROCEDURE NOTE LEFT INTRA-ARTICULAR SACROILIAC JOINT INJECTION Date of Service: February 01, 2025 Patient: Kyree Mann Provider: Ivan Pavon DO, MPH COMMENTS: I previously evaluated the patient in the office and their symptoms in relation to the sacroiliac joint pain have remained the same. Pre-operative diagnosis: Sacroiliac joint dysfunction ICD-10 M53.3 Post-operative diagnosis: Same Pre-procedure pain: VAS= 5/10 Kyree aMnn has been referred to our [facility] for a Left intra-articular Sacroiliac joint injection. Kyree was interviewed and the medical record reviewed. There were no medical, pharmacologic, radiographic or other structural contraindications to attempting a fluoroscopically-guided, contrast-enhanced, intra-articular Sacroiliac joint injection. The risks, benefits, and potential side effects of this procedure were reviewed with the patient. Questions and concerns were addressed. After it was clear that Kyree was fully informed about the procedure, the printed consent form was signed by the patient and myself. Kyree was placed in the prone position on the fluoroscopy table and an automated blood pressure cuff, 3 lead EKG, and pulse oximeter were applied. The skin entry point for approaching the Left sacroiliac joint was identified under the most advantageous fluoroscopic view and marked. Following thorough Chlorhexadine preparation of the skin and draping with sterile surgical drapes, 2 mls of 1% lidocaine was infiltrated into the skin at the entry point and the surrounding subcutaneous tissues. Next, a 3.5 22G spinal needle was placed under fluoroscopic guidance into the Left sacroiliac joint. Intra-articular placement was confirmed by a clear arthrogram resulting from the injection of 0.25ml of Omnipaque-240. Next, 1 ml of Depo- Medrol 40 mg/ml was injected intra- articularly with an initial reproduction of a significant component of the usual pain. This was followed with 1 ml of 1% Lidocaine. The needle was then removed without difficulty. (49 ml of Omnipaque-240 was wasted). Kyree's vital signs were stable throughout the procedure and were as recorded in nursing records. Follow up plans and appointments were discussed with Kyree. Post procedure instructions were given as documented in nursing records. Having met discharge criteria, Kyree was [facility] from the [facility]. COMMENTS: Post-procedure pain: VAS= 1/10. If the patient receives at least 50% improvement in pain and/or function for at least 3 months, this procedure can be repeated if needed. I personally performed this entire procedure. IVAN PAVON DO, MPH ABPMR-subspecialty board certification in Pain Medicine [facility] Coding Conscious Sedation used for procedure: No CPT Codes: SI Joint Inj; incl Fluoro - 52675 ([id number] ~G) Additional Codes: Date of Service (38280) Date of service: 02/01/25 Diagnoses: Sacroiliac joint dysfunction
== END 2025-02-01 14:33 | disposition home or self-care (01) ==
LOC: PC 14:32
PROVIDERS: PCP Nurse Practitioner Family; Visit Provider Preventive Medicine Occupational Medicine
DX: M54.50 Low back pain, unspecified (principal); M53.3 Sacrococcygeal disorders, not elsewhere classified
CPT/HCPCS: 27096; 72200; J1010; Q9967

== ENCOUNTER 2025-02-13 14:06 | Outpatient (CLI) | payer BC, SELFPAY ==
--- NOTE | 2025-02-13 15:50 | DI.MRI_ITS ---
Exam(s) MR UPPER JOINT LT WO EXAM: MR UPPER JOINT LT WO CLINICAL HISTORY: FAILURE OF BICEPS REPAIR-INCLUDE 1/2 UP ARM S46.212A STRAIN LT ARM. TECHNIQUE: Multiplanar multisequence MRI was performed. COMPARISON: MRI of the elbow 02 January 2025. Plain films 13 February 2025 FINDINGS: Elbow joint: No joint effusion. No loose bodies. Bones: There is no fracture or contusion pattern. Metallic density noted near the radial tubercle with only slight surrounding artifact. Some mild high signal in the adjacent radial tubercle related to postsurgical changes. Biceps tendon: Some postsurgical artifacts are noted along the course of the biceps tendon. There is a full-thickness tear with severe retraction of the biceps tendon. The tendon appears retracted nearly 10 cm. Brachialis tendon: Intact. No tendinosis. Common flexor tendons: Intact. No tendinosis. Common extensor tendons: Intact. No tendinosis. Triceps tendon: Intact. No tendinosis. Soft tissues: Some fluid in the anterior soft tissues. significant edema in the inferior biceps muscle. Some fluid around the radial tubercle. IMPRESSION: Retear of the previously repaired biceps tendon with severe retraction. Edema in the distal biceps muscle. DATA REPOSITORY:
== END 2025-02-13 14:26 ==
LOC: DI 03-16 14:06
PROVIDERS: PCP Nurse Practitioner Family; Visit Provider Student in an Organized Health Care Education/Training Program
DX: S46.212D Strain of muscle, fascia and tendon of other parts of biceps, left arm, subsequent encounter (principal); X58.XXXD Exposure to other specified factors, subsequent encounter; Z98.890 Other specified postprocedural states
CPT/HCPCS: 73221

== ENCOUNTER 2025-02-13 15:59 | Outpatient (CLI) | payer BC, SELFPAY ==
--- NOTE | 2025-02-13 11:30 | DI.RAD_ITS ---
Exam(s) XR ELBOW LT LIMITED EXAM: XR ELBOW LT LIMITED INDICATION: F/U BICEPS REPAIR. COMPARISON: MR MR UPPER JOINT LT WO from 01/02/2025 CR XR ELBOW LT COMPLETE from 01/02/2025 XA XR ELBOW LT LIMITED from 01/04/2025 XR PAIN CLINIC SACRIOILIAC 2V from 02/01/2025 TECHNIQUE: 2D digital imaging was performed. Two views. FINDINGS: Postsurgical changes at the radial tubercle are again noted. Metallic suture anchor again noted. No visible joint effusion. DATA REPOSITORY: RADIATION DOSE DELIVERED:
== END 2025-02-13 16:00 | disposition home or self-care (01) ==
LOC: DIORS 16:00
PROVIDERS: PCP Nurse Practitioner Family; Visit Provider Student in an Organized Health Care Education/Training Program
DX: S46.212A Strain of muscle, fascia and tendon of other parts of biceps, left arm, initial encounter (principal)
CPT/HCPCS: 73070

== ENCOUNTER 2025-02-22 08:26 | Day surgery (SDC) | payer BC, SELFPAY ==
[2025-02-22] VITALS (29 sets, daily range): BP systolic 99–130; BP diastolic 61–87; PULSE 56–86; RESP 9–21; TEMP 36.2–37.2; O2SAT 94–99; BMI 32.0
--- NOTE | 2025-02-22 07:25 | W.PM.OP ---
Operative Note Operative Note PRE-OP DIAGNOSIS: Left failed distal biceps tendon repair POST-OP DIAGNOSIS: same PROCEDURE: Left revision distal biceps tendon repair with allograft, CPT #22667 SURGEON: Raoul Cortez [employer] OPERATOR: Sarmad Bass ANESTHESIA TYPE: Local By Surgeon and General LMA/ETT Refer to Anesthesia Record ESTIMATED BLOOD LOSS: 10 COMPLICATIONS: None Patient was transported to: PACU Patient's condition: stable Implants: Arthrex distal biceps button Peroneus longus allograft 8.0 x 270 mm Indications: Please see complete medical record for details. Findings: Complete retracted distal biceps tendon with the tendon remnant reasonably intact with sutures having failed at the radial tuberosity socket to the retained metal cortical button. Significant muscle tendon retraction. Procedure Description: In the operating room, general anesthesia was induced. The patient was positioned supine on the operating room table. All bony prominences were well-padded. Preoperative antibiotics were administered. The left elbow was prepped and draped in the usual sterile fashion. The correct patient, procedure, and side of the procedure were all verified prior to incision. The previous moderately sized longitudinal incision centered over the volar proximal forearm was preinjected with 0.25% bupivacaine containing epinephrine. Blunt and spreading dissection was used to reapproach the radial tuberosity. The previous radial tuberosity socket was identified and absent of biceps or suture. It was reopened with curettes and the pin hole was identified on the far side. Next, the proximal retracted biceps tendon was attempted to be grasped through the same incision with the elbow flexed and the milking maneuver but it was somewhat scarred and adhered fairly far proximal. A small incision was made in the distal arm over the palpable tendon with the tendon identified, freed up from the surrounding subcutaneous and deeper tissues including some neurovascular structures. The free suture tails from the primary repair were cut flush with the biceps tendon and the scarring spreading adhesions were trimmed to a more regular tendon size. There was about 5 cm of tendon good for repair and significantly retracted biceps muscle that did not really relax or move distally with steady vigorous traction on the tendon. The tendon appeared good for attempted rerepair so it was prepared with suture tape from the muscle tendon junction thoroughly whipstitched with fiber loop distally. The sutures were then passed from the distal to proximal incision after blunt dissection to confirm the tendon path, but even with more traction elbow flexion the tendon did not have adequate excursion really to even the distal incision let alone the repair site on the radial tuberosity. This inability to reach the repair site was not unexpected especially given the index procedure had significant tension and now the tendon was even more retracted and probably a little bit shortened. Decision was made to proceed with allograft reconstruction of the distal part of the tendon and then repair we have in the tendons together more mid to proximally. The peroneus longus allograft was prepared on the back table after soaking and vancomycin saline with the strong and thoroughly prepared much longer than usual in order to have bridging sutures with the [place] tendon with suture tape fiber loop with the tendon measuring about 8 mm and then the suture tails run through the cortical button with the far cortex reopened with the spade tip drill and then the button passed, flipped on the far side, and the tendon graft delivered nicely and completely secured into the same radial tuberosity socket. The free suture tails were then passed with a free needle through the stitch and of the tendon and then tied, placed back around the tendon cerclage and then tied again for added fixation. The [place] tendon prepared with the fiber loop was then brought through the distal incision overlapping as much as reasonable bringing the muscle belly distal with moderate tension and the elbow bent about 90 degrees overlying the tendon allograft. The tendons were clamped together and the distal end of the [place] tendon suture tails from the fiber loop were then passed through the graft in a tension slide configuration, ends tied, they were placed again through the tendon graft more distally and ends tied again using the distal graft repair fiber loop sutures as the ripstop for the tension slide on the [place] tendon. With the tendons maintained together tapered needle with suture tape was then used to whipstitch the tendons together from proximal to distal with a few different throws using again the fiber loops on the corresponding tendons as ripstop and cerclage sutures to nicely bring the donor and [place] tendon together in a tubular fashion. The proximal end of the donor graft was then weaved through the distal muscle belly from deep to proximal across horizontal mattress and packed deep and then the end of the tendon draped back over the [place] tendon and sewn together with a suture tape. Lastly, the remainder of the graft was then wrapped around the repair and reconstruction and secured with suture tape cerclage in total with excellent tension repair, reconstruction, and augmentation of this distal biceps tendon construct. There was good tension, the muscle belly was brought distal and recreation of motion supination and stable to about 135 degrees of extension not tested more vigorously. Both wounds were copiously irrigated with generous normal saline. Hemostasis was appropriate. Radial artery was confirmed free and mobile on the ulnar side of the repair/reconstruction as well no issues with bridging veins and sensory nerves. About 1 g of vancomycin powder was distributed in the wounds. Subcutaneous tissue was closed with 2-0 Monocryl buried erupted. Running subcuticular 3-0 Monocryl was then used to close the skin. Steri-Strips were applied followed by Xeroform, sterile 4 x 4 gauze and soft roll. The radial artery was readily palpable. The extremity was then maintained about 90 degrees flexed and a posterior long-arm plaster splint with side bar was placed. The radial digits had excellent waveform on pulse oximetry. The patient awoke from anesthesia without complication and was transferred to the recovery room in a stable condition. Date of Procedure: 02/22/25
--- NOTE | 2025-02-22 08:45 | DI.RAD_ITS ---
Exam(s) XR ELBOW LT COMPLETE EXAM: XR ELBOW LT COMPLETE CLINICAL HISTORY: Left radial sensory nerve injury. TECHNIQUE: 2D digital imaging was performed. COMPARISON: No exams were available for comparison FINDINGS: Fluoroscopy provided during orthopedic procedure in region of the left elbow. See procedure report for details. IMPRESSION: Radiation exposure index/cumulative dose:Iain,r=0.190mGy DATA REPOSITORY: RADIATION DOSE DELIVERED:
--- NOTE | 2025-02-22 08:50 | W.ANESPRE ---
General Info Date of Service Date Performed: 02/22/25 Height: 5 ft 9 in Weight: 98.3 kg Body Mass Index (BMI): 32.0 Surgical Procedure: Operation Date: 02/22/25 09:40 Proposed Procedure Side Surgeon p Revision Distal Bicep Tendon Repair, Possible Allograft Left Raoul Cortez MD Meds Allergies and Home Medications Allergies Allergy/AdvReac Type Severity Reaction Status Date / Time tiotropium (From Spiriva Allergy Hives Verified 02/22/25 08:33 with HandiHaler) animal dander AdvReac watery Verified 02/22/25 08:33 eyes, sneezing house dust AdvReac watery Verified 02/22/25 08:33 eyes, sneezing Home Medication ?Medication ?Instructions ?Recorded albuterol sulfate 90 mcg/actuation 2 puff inhalation qid prn 01/13/18 aerosol inhaler (ProAir HFA) duloxetine 60 mg capsule,delayed 60 mg PO DAILY 01/13/18 release (Cymbalta) propranolol 40 mg tablet 40 mg PO BID 02/22/19 Held on 02/21/25. Instructions: Changed by Provider loratadine 10 mg capsule (Claritin 10 mg PO DAILY 06/09/21 Liqui-Gel) topiramate 25 mg tablet (Topamax) 50 mg PO HS 06/09/21 lisinopril 40 mg tablet 40 mg PO DAILY 07/15/21 oxycodone 10 mg tablet 10 mg PO TID PRN 07/15/21 mirtazapine 30 mg tablet 30 mg PO DAILY 05/25/23 pregabalin 100 mg capsule 100 mg PO BID 07/27/23 acetylcysteine 600 mg capsule 1,200 mg PO BID 01/05/24 azelastine 137 mcg (0.1 %) nasal 1 spray intranasal BID PRN 01/05/24 spray fluticasone propionate 50 2 spray intranasal DAILY #16 grams 01/26/24 mcg/actuation nasal spray,suspension (Flonase Allergy Relief) inhalational spacing device 07/14/24 (Aerochamber Mini) Current Visit Medications: Current Medications Generic Name Dose Route Start Last Admin Trade Name Freq PRN Reason Stop Dose Admin Ringer's Solution 1,000 mls @ 30 mls/hr 02/22/25 06:00 IV 02/22/25 23:59 INFUSION ARSLAN Cefazolin Sodium/Dextrose 2 gm in 50 mls @ 100 mls/hr 02/22/25 06:00 Ancef Duplex IVPB 02/22/25 23:59 PREOP ARSLAN Tranexamic Acid/Sodium Chloride 1,000 mg in 100 mls @ 600 mls/hr 02/22/25 06:00 IVPB 02/22/25 23:59 PREOP ARSLAN IV Miscellaneous Supplies 1 each 02/22/25 06:00 Iv Access IV 02/22/25 23:59 DIRECTED ARSLAN Sodium Chloride 0 ml 02/22/25 06:00 Normal Saline Flush 10 Ml Syr IV 02/22/25 23:59 PRN PRN Sodium Chloride 0 ml 02/22/25 06:00 Normal Saline 10 Ml Vial IJ 02/22/25 23:59 DIRECTED PRN Sterile Water 0 ml 02/22/25 06:00 Water,Injection,Sterile 10 Ml Vial IJ 02/22/25 23:59 DIRECTED PRN PFSH Active Problems Active Problems: Problem Status Onset Code Left radial sensory nerve injury Acute S54.22XA Traumatic rupture of left distal biceps tendon Acute 01/02/25 S46.212A History of cataract surgery Chronic Z98.49 Sacroiliac joint dysfunction of left side Acute M53.3 Lumbosacral spondylosis without myelopathy Acute M47.817 Arthritis of right knee Acute M17.11 Tear of medial meniscus of right knee Acute S83.241A Right knee pain Acute M25.561 Deviated nasal septum Acute J34.2 Nasal congestion Acute R09.81 Eustachian tube dysfunction Acute H69.90 BPH w urinary obs/LUTS Acute N40.1, N13.8 Family disruption due to legal separation Acute Z63.5 Neck pain Acute M54.2 Adjustment disorder with mixed anxiety and depressed mood Acute F43.23 Diverticulitis large intestine Acute K57.32 Chronic kidney disease Chronic N18.9 Allergic rhinitis Acute J30.9 Essential hypertension Acute I10 Nicotine dependence Acute F17.200 Kidney stones Chronic N20.0 Intervertebral disc disorder Acute M51.9 Lesion of eyelid Acute H02.9 Low back pain Acute M54.50 Shoulder joint pain Acute M25.519 Genitourinary symptoms Acute R39.9 Frequent headaches Acute R51.9 Insomnia Acute G47.00 History of urinary stone Acute Z87.442 Alcohol abuse Chronic F10.10 Obesity Chronic E66.9 Cervical radiculopathy Acute M54.12 Subacromial impingement Acute M75.40 Muscle pain, cervical Acute M54.2 Lumbosacral spondylosis without myelopathy Acute M47.817 Syncope Chronic R55 Headache, chronic migraine without aura Acute G43.709 Encounter for colorectal cancer screening Acute Z12.11, Z12.12 Medical History Medical History Aftercare following left shoulder joint replacement surgery Disorder of skin and subcutaneous tissue Anxiety disorder due to general medical condition Disorder of kidney and ureter Eczema Solitary lung nodule Nonulcer dyspepsia Urinary tract stones Blood in urine Benign prostatic hyperplasia Multiple renal cysts Tobacco dependence Acute right otitis media Upper respiratory infection Hearing loss History of psychiatric disorder Dyspepsia Loss of consciousness Renal impairment Impaired fasting glucose COPD (chronic obstructive pulmonary disease) Hyperlipidemia Headache Alopecia totalis Hypertension Asymptomatic microscopic hematuria Lumbar back pain Environmental allergies Asthma, mild intermittent Diverticulitis Diarrhea Depression Anxiety Shingles Sleep apnea Surgical History Surgical History S/P cervical disc replacement C4-5 History of lumbar fusion 2-3, 3-4 H/O colonoscopy (03/11/18) Dr Mendez, negative, repeat in 10 years Tobacco Smoking/Tobacco Use Status: Former Tobacco Use Alcohol Alcohol Intake: current Alcohol intake frequency: holidays/special occasions only Alcohol type: beer Substance Use Substance use: Rarely Substance use type: marijuana Vital Signs and Lab Results Vital Signs Most Recent Vital Signs in EMR: Most Recent Vital Signs Temp Pulse Resp BP Pulse Ox 36.5 C 69 16 127/87 99 02/22/25 08:35 02/22/25 08:35 02/22/25 08:35 02/22/25 08:35 02/22/25 08:35 Imaging and Studies Imaging and Studies Study information below may be from another EMR and interpreted by another provider. Please see original notes in EMR for more complete details. EKG Summary: 03/03/23: Exam: Resting ECG Reason for Exam: syncope Patient Location: E HR:68 bpm ECG Measurements Heart Rate 68 AXIS VT 171 P 64 QRSd 99 QRS 43 QT 412 T50 QTc 439 Conclusion Sinus rhythm...normal P axis, V-rate 60- 99 Physician: no stemi, intervals normal I have reviewed and I agree with the emergency room physician's ECG interpretation. Pulmonary Function Summary: 03/04/21: Pulmonary Function Test Result Requesting Provider Katie Molina Indications: Disability determination Interpretation Spirometry: There is moderate airflow obstruction. There is a significant bronchodilator effect. There is inspiratory loop blunting on the flow volume loop. Impression Moderate airflow obstruction with a significant bronchodilator effect. In the correct clinical context this could represent COPD, asthma or asthma COPD overlap syndrome. The inspiratory blunting on the flow volume loop could represent vocal cord dysfunction. Note: When compared to pulmonary function testing completed in 06/03/2020 there is a significant improvement to both the FEV1 and the FVC, there is still a significant bronchodilator effect and inspiratory loop blunting on the flow volume curve is new Clinical Correlation therefore is recommended. Anesthesia Assessment and Plan Anesthesia History Personal History: No History of Anesthesia Complications Family History: No Family History of Anesthesia Complications Exercise Tolerance Exercise Tolerance: Metabolic Equivalents>4 Pertinent Negatives Pertinent Negatives: No Symptoms of GERD and No History of CVA/TIA Cardiac & Pulmonary Exam Cardiac Exam: Normal S1/S2 Heart Sounds Pulmonary Exam: Clear Bilateral Breath Sounds Implantable Cardiac Device Does patient have a Pacemaker or an ICD?: No Airway Exam Known Difficult Airway: No Mallampati Class: 2 Mouth Opening: Normal (> 3cm) Thyromental Distance: Greater than 3 cm Neck Range of Motion: Limited ROM Neck Circumference: Normal Teeth Condition: Normal Dentition and Generalized Poor Dentition ASA Classification ASA Score: ASA 3 Emergency Case?: No NPO Status NPO Status: NPO Clears >2 hours, Solids >8 hours Anesthesia Plan Resuscitation Status: Full Code Anesthesia Technique: General Anesthesia Airway Planned: Endotracheal Tube Monitors Used: Standard Monitors and SedLine Preoperative Comments:: Patient reports decreased sensation to distal portion to the lateral cutaneous nerve of the surgical arm with improvement over the last few weeks. Motor strength intact. Dr. Cortez aware and office note reviewed. All questions answered for the patient and spouse present in room for preoperative exam as well as consent. Planned GA/ETT.
--- NOTE | 2025-02-22 09:01 | PDOC.DSDIS_ITS ---
Date of service: 02/22/25 Discharge Plan Disposition Patient Disposition: Home Condition: Stable Discharge Details Attending Provider: Raoul Cortez Primary Care Provider: Mari Hill Home Meds and New Rx's Prescriptions: New naproxen 250 mg tablet 250 mg PO BID PRN (Reason: Moderate pain) Qty: 20 0RF oxycodone 5 mg tablet 5 - 10 mg PO Q4H PRN (Reason: Moderate to severe pain) Qty: 18 0RF Continued topiramate [Topamax] 25 mg tablet 50 mg PO HS Claritin Liqui-Gel 10 mg capsule 10 mg PO DAILY fluticasone propionate [Flonase Allergy Relief] 50 mcg/actuation spray,suspension 2 spray intranasal DAILY Qty: 16 12RF Rx Instructions: administer into each nostril albuterol sulfate [ProAir HFA] 8.5 GM HFA aerosol inhaler 2 puff Inhalation qid prn Patient Comments: prn duloxetine [Cymbalta] 60 MG capsule,delayed release(DR/EC) 60 mg PO DAILY propranolol 40 mg tablet 40 mg PO BID lisinopril 40 mg tablet 40 mg PO DAILY oxycodone 10 mg tablet 10 mg PO TID PRN pregabalin 100 mg capsule 100 mg PO BID acetylcysteine 600 mg capsule 1,200 mg PO BID azelastine 137 mcg (0.1 %) spray,non-aerosol 1 spray intranasal BID PRN Rx Instructions: administer into each nostril (DME) Aerochamber Mini Spacer See Rx Instructions .Route Rx Instructions: As directed mirtazapine 30 mg tablet 30 mg PO DAILY Discharge Instructions Additional Instructions: Surgery: Left revision distal biceps tendon repair with allograft on 02/22/25 Activity: Maintain/keep elbow bent 90 degrees until follow-up. Recommend elevation to minimize swelling and discomfort. Light/gentle use of hand and fingers okay. CONSERVATIVE protocol. A physical therapy prescription will be sent electronically to start about 3 weeks. Conservative PT protocol: Maintain elbow flexed 90 degrees for 2 weeks then progress gradually to full extension around weeks 6?8 postop. Isometrics after 8 weeks Concentric strengthening after 12 weeks Eccentric strengthening after 16 weeks Continue your already prescribed oxycodone as directed Prescriptions: Oxycodone 5 mg take 1?2 as needed for severe breakthrough pain Naproxen 250 mg take 1 every 12 hours with a meal as needed for moderate pain (use cautiously with kidney disease & do not use at the same time as any other NSAIDs) You may use [id number] Tylenol (acetaminophen) as needed for mild pain. These pain medications may be taken all at once or in different combinations as needed. Also, recommend Colace (docusate) as a stool softener as surgery and pain medicine cause constipation. You may try [id number] diphenhydramine (Benadryl) 25-50 mg nightly as a sleep aid Dressings: Leave splint and dressing in place until follow-up. Keep clean and dry at all times. Follow-up: 10-[address] Cortez You may take off the leg compression stockings this evening at home. You may also leave them on a few days longer if you have a history of leg swelling or edema. Let us know right away if you develop any redness, drainage, fevers, chest pain, or trouble breathing. Do not drink alcohol or drive for at least 24 hours after anesthesia. Please call the office during business hours with any questions or concerns. Stand Alone Forms: Anesthesia Discharge Inst., Becky Pickering ([facility]) Referrals: Raoul Cortez MD [ [facility] STAFF PHYSICIAN, Orthopaedic Surgical] - 03/06/25 8:45 am Discharge Orders Discharge Orders: Discharge Order (Routine); Ordered 02/22/25 Ordered By: Sarmad Bass DS: Diagnosis Discharge Diagnosis (1) Traumatic rupture of left distal biceps tendon: Status: Acute
[2025-02-22] MEDS: Lactated Ringers 1,000 ML 30 ML IV (09:07)
[2025-02-22] MEDS: ceFAZolin 2 GM/50 ML BAG IVPB (09:46)
[2025-02-22] MEDS: TRANEXAMIC ACID/SOD. CHL. 1,000 MG/100 ML BAG 600 MG IVPB (09:52)
[2025-02-22] MEDS: Bupivacaine 0.25% Pres-Free W/EPI 30 ML VIAL (10:34)
[2025-02-22] MEDS: Vancomycin 1,000 MG VIAL 1000 MG ×2 (11:56→11:57)
[2025-02-22] MEDS: fentaNYL 100 MCG/2 ML VIAL IVP ×2 (13:11→13:18)
[2025-02-22] MEDS: HYDROmorphone 2 MG/ML SYR IVP ×4 (13:26→13:59)
[2025-02-22] MEDS: oxyCODONE 5 MG TAB PO (14:35)
--- NOTE | 2025-02-22 14:59 | W.ANESPOSTOP ---
Postoperative Evaluation Date, Time and Location Date Performed: 02/22/25 Time Performed: 14:59 Patient Location: Day Surgery Unit Vital Signs Most Recent Imported Vital Signs: Most Recent Vital Signs Temp Pulse Resp BP Pulse Ox 36.2 C L 57 L 16 104/77 95 02/22/25 14:13 02/22/25 14:13 02/22/25 14:13 02/22/25 14:13 02/22/25 14:13 Pain Score Most Recent Pain Score: Most Recent Pain Score Pain Level 8 02/22/25 14:13 Assessment Mental Status: Awake (Alert & Oriented to Patient Baseline) Airway and Respiratory Function: Patent airway with normal (patient baseline) respiratory exam Cardiovascular Function: Hemodynamically Stable Hydration Status: Adequately Hydrated Nausea & Vomiting: No Nausea or Vomiting Pain: Pain is Moderate or Severe Postoperative Pain Management: Pain being addressed with medication Peripheral Nerve Block: Patient did not receive a nerve block
== END 2025-02-22 15:56 | disposition home or self-care (01) ==
PROVIDERS: PCP Nurse Practitioner Family; Visit Provider Student in an Organized Health Care Education/Training Program
PROC: (CPT 24341; principal; 2025-02-22 09:30)
DX: S46.212A Strain of muscle, fascia and tendon of other parts of biceps, left arm, initial encounter (principal); X58.XXXA Exposure to other specified factors, initial encounter
CPT/HCPCS: 24342; 73080; J0131; J0665; J0666; J0690; J1100; J1171; J2250; J2371; J2405; J2598; J2704; J3010; J3373

== ENCOUNTER 2025-04-10 19:06 | Outpatient (REF) | payer BC, SELFPAY ==
[2025-04-10 18:19] LABS: EPI 027-NAP1-B1 PRESUMPTIVE NEGATIVE
[2025-04-18 15:27] LABS: Lactoferrin, Qt, Stool <6.25 mcg/mL (<7.25)
== END 2025-04-10 19:07 | disposition home or self-care (01) ==
LOC: LBN 19:06
PROVIDERS: PCP Nurse Practitioner Family; Visit Provider Internal Medicine Gastroenterology
DX: R19.7 Diarrhea, unspecified (principal); K52.831 Collagenous colitis
CPT/HCPCS: 83631; 87015; 87269; 87272

== ENCOUNTER 2025-05-01 09:10 | Outpatient (REF) | payer BC, SELFPAY | END 2025-05-01 09:11 | disposition home or self-care (01) | LOC: LBN 09:10 | PROVIDERS: PCP Nurse Practitioner Family; Visit Provider Internal Medicine Gastroenterology | DX: R19.7 Diarrhea, unspecified (principal); K52.831 Collagenous colitis | CPT/HCPCS: 87015; 87269; 87272 ==